=== PATIENT | male | born 1970 | race Caucasian/White ===

== ENCOUNTER 2017-02-22 02:59 | Emergency (ER) | payer BC ==
[~2017-02-22] VITALS: Ht 175.3 cm; Wt 74.4 kg
[2017-02-22] MEDS ORDERED: Thiamine HCl 100 MG in D5W 55 ML IVPB ONE (03:30)
[2017-02-22] MEDS ORDERED: Thiamine HCl 100mg/ml 2 ml Inj ONE (03:46)
--- NOTE | 2017-02-22 03:49 | Emergency Room Report ---
History of Present Illness General Chief Complaint: General Complaint Source: Patient Present Illness HPI This is a 46-year-old male who presents after increased discolored urine and regular stool. Patient reports having recently been in a alcohol detox facility. He states that he had recently left facility and began drinking alcohol again. Patient reported having prior history of liver infection but states that he did not have prior history of cirrhosis. The patient reported having last alcohol use yesterday in the morning. He denied any vomiting. He denied any current pain. He states he drinks regularly due to family problems. He reports previously having attended as well as been in rehabilitation multiple times Allergies: Coded Allergies: CEPHALEXIN (Verified Allergy, Unknown, 02/22/17) PENICILLINS (Verified Allergy, Unknown, 02/22/17) Patient History Past Medical History: see triage record Reviewed Nursing Documentation: PMH: Agreed, PSxH: Agreed Nursing Documentation-PMH History Of Psychiatric Problem: Yes - DEPRESSION Review of Systems All Other Systems: negative except mentioned in HPI Physical Exam Vital Signs Date Time Temp Pulse Resp B/P (MAP) Pulse Ox O2 Delivery O2 Flow Rate FiO2 02/22/17 03:04 97.3 91 18 126/82 97 Room Air Sp02 EP Interpretation: reviewed, normal General Appearance: normal inspection, well appearing, no apparent distress, alert, GCS 15, non-toxic Head: atraumatic ENT: normal ENT inspection, hearing grossly normal, normal voice Neck: normal inspection, full range of motion, supple, no bony tend Respiratory: normal inspection, lungs clear, normal breath sounds, no respiratory distress, no retraction, no wheezing Cardiovascular #1: regular rate, rhythm, no edema Gastrointestinal: normal inspection, normal bowel sounds, non tender, soft, no guarding, no hernia Genitourinary: no CVA tenderness Musculoskeletal: normal inspection, back normal, normal range of motion Neurologic: normal inspection, alert, oriented x3, responsive, 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 Differential diagnosis included was not limited to rhabdomyolysis, hyper bilirubinemia, malabsorption among others.Because of complexity of patient's case laboratory testing were ordered.I laboratory testing was notable for abnormal liver function tests as well as elevated bilirubin level. The patient was noted to be somewhat thrombocytopenic. Patient is advised to followup with outpatient alcohol abuse treatment. The patient is advised to follow up with primary care doctor in 1- 2 days. Patient is advised to return if any worsening condition or if any changes in status that are concerning. Labs Test 02/22/17 03:40 02/22/17 05:15 White Blood Count 7.2 K/UL (4.8-10.8) Red Blood Count 3.33 M/UL (4.70-6.10) Hemoglobin 13.1 G/DL (14.2-18.0) Hematocrit 37.0 % (42.0-52.0) Mean Corpuscular Volume 111 FL (80-99) Mean Corpuscular Hemoglobin 39.4 PG (27.0-31.0) Mean Corpuscular Hemoglobin Concent 35.5 G/DL (32.0-36.0) Red Cell Distribution Width 16.3 % (11.6-14.8) Platelet Count 113 K/UL (150-450) Mean Platelet Volume 9.1 FL (6.5-10.1) Neutrophils (%) (Auto) % (45.0-75.0) Lymphocytes (%) (Auto) % (20.0-45.0) Monocytes (%) (Auto) % (1.0-10.0) Eosinophils (%) (Auto) % (0.0-3.0) Basophils (%) (Auto) % (0.0-2.0) Sodium Level 141 mEQ/L (135-145) Potassium Level 3.9 mEQ/L (3.4-4.9) Chloride Level 102 mEQ/L (98-107) Carbon Dioxide Level 25 mEQ/L (20-30) Anion Gap 14 (5-15) Blood Urea Nitrogen 14 mg/dL (7-23) Creatinine 1.1 mg/dL (0.7-1.2) Estimat Glomerular Filtration Rate > 60 mL/min (>60) Glucose Level 107 mg/dL (74-106) Calcium Level 9.5 mg/dL (8.6-10.2) Total Bilirubin 1.6 mg/dL (0.0-1.2) Direct Bilirubin 0.3 mg/dL (0.1-0.3) Aspartate Amino Transf (AST/SGOT) 75 U/L (5-40) Alanine Aminotransferase (ALT/SGPT) 71 U/L (3-41) Alkaline Phosphatase 93 U/L (40-129) Total Creatine Kinase 143 U/L (38-174) Total Protein 7.1 g/dL (6.6-8.7) Albumin 4.5 g/dL (3.5-5.2) Globulin 2.6 g/dL Albumin/Globulin Ratio 1.7 (1.0-2.7) Lipase 50 U/L (< 60) Serum Alcohol 141 mg/dL Urine Color Yellow Urine Appearance Clear Urine pH 5 (4.5-8.0) Urine Specific [place] 1.010 (1.005-1.035) Urine Protein Negative (NEGATIVE) Urine Glucose (UA) Negative (NEGATIVE) Urine Ketones Negative (NEGATIVE) Urine Occult Blood Negative (NEGATIVE) Urine Nitrite Negative (NEGATIVE) Urine Bilirubin Negative (NEGATIVE) Urine Urobilinogen Normal MG/DL (0.0-1.0) Urine Leukocyte Esterase Negative (NEGATIVE) Urine RBC 0 /HPF (0 - 0) Urine WBC 0 /HPF (0 - 0) Urine Squamous Epithelial Cells Few /LPF (NONE/OCC) Urine Bacteria None /HPF (NONE) Last Vital Signs Date Time Temp Pulse Resp B/P (MAP) Pulse Ox O2 Delivery O2 Flow Rate FiO2 02/22/17 03:04 97.3 91 18 126/82 97 Room Air Status: improved Disposition: HOME, SELF-CARE Condition: Stable Scripts Omeprazole Magnesium (PRILOSEC OTC) 20 Mg Tablet. 20 MG ORAL DAILY, #30 TAB Prov: Gurmeet Krueger 02/22/17 Referrals: NOT CHOSEN NAKIA/,REFERRING (PCP) Gurmeet Krueger Feb 22, 2017 03:49
[2017-02-22 04:06] VITALS: BP 122/82
[2017-02-22 04:12] LABS: MEAN CORPUSCULAR HEMOGLOBIN 39.4 PG (27.0-31.0); MEAN CORPUSCULAR HGB CONC 35.5 G/DL (32.0-36.0); MEAN CORPUSCULAR VOLUME 111 FL (80-99); MEAN PLATELET VOLUME 9.1 FL (6.5-10.1); PLATELET COUNT 113 K/UL (150-450); RED BLOOD COUNT 3.33 M/UL (4.70-6.10); RED CELL DISTRIBUTION WIDTH 16.3 % (11.6-14.8); WHITE BLOOD COUNT 7.2 K/UL (4.8-10.8)
[2017-02-22 04:32] LABS: ALANINE AMINOTRANSFERASE 71 U/L (3-41); ALBUMIN/GLOBULIN RATIO 1.7 (1.0-2.7); ALCOHOL 143 mg/dL; ANION GAP 14 (5-15); ASPARTATE AMINO TRANSFERASE 75 U/L (5-40); CALCIUM 9.5 mg/dL (8.6-10.2); CARBON DIOXIDE 25 mEQ/L (20-30); CHLORIDE 102 mEQ/L (98-107); CREATININE 1.1 mg/dL (0.7-1.2); GLOMERULAR FILTRATION RATE > 60 mL/min (>60); HEMOLYSIS 5; POTASSIUM 3.9 mEQ/L (3.4-4.9); SODIUM 141 mEQ/L (135-145); TOTAL PROTEIN 7.1 g/dL (6.6-8.7)
[2017-02-22 04:48] LABS: BILIRUBIN,DIRECT 0.3 mg/dL (0.1-0.3)
[2017-02-22 05:28] VITALS: BP 132/82
[2017-02-22 05:30] LABS: APPEARANCE,URINE CLEAR; KETONES,URINE NEGATIVE (NEGATIVE); LEUKOCYTE ESTERASE ,URINE NEGATIVE (NEGATIVE); NITRITE,URINE NEGATIVE (NEGATIVE); PH,URINE 5 (4.5-8.0); PROTEIN,URINE NEGATIVE (NEGATIVE); UROBILINOGEN,URINE NORMAL MG/DL (0.0-1.0)
[2017-02-22 05:35] LABS: RBC,URINE 0 /HPF (0 - 0); SQUAMOUS EPITHELIAL CELL,UR FEW /LPF (NONE/OCC); WBC,URINE 0 /HPF (0 - 0)
[2017-02-22] MEDS ORDERED: PRILOSEC OTC20 MG ORAL (06:10)
[2017-02-22 06:21] VITALS: BP 13/78
== END 2017-02-22 06:20 | disposition home or self-care (01) ==
LOC: EMR 03:20
DX: F10.10 Alcohol abuse, uncomplicated (principal); D69.6 Thrombocytopenia, unspecified; Z88.8 Allergy status to other drugs, medicaments and biological substances; Z88.0 Allergy status to penicillin; F32.9 Major depressive disorder, single episode, unspecified
CPT/HCPCS: 36415; 80053; 80300; 81001; 82248; 82550; 83690; 85025; 96365; 99284; G0480; 80329

== ENCOUNTER 2018-08-20 19:49 | Emergency (ER) | payer BC ==
[~2018-08-20] VITALS: Ht 175.3 cm; Wt 77.1 kg
[~2018-08-20 19:49] MED LIST: PRILOSEC OTC20 MG ORAL
[2018-08-20 20:10] VITALS: BP 147/67
--- NOTE | 2018-08-20 20:10 | NUR ---
ED Nurse Note: Pt arrived ED from home. C/o ETOH. Pt is very agitated and asking for IV meds. PT is A/O X 4. Hr 130 /Min at this time. waitng for orders.
--- NOTE | 2018-08-20 20:25 | NUR ---
ED Nurse Note: Blood sample collected and sent to Lab.
[2018-08-20] MEDS ORDERED: Thiamine HCl 100 MG in D5W 55 ML IV ONE (20:30)
--- NOTE | 2018-08-20 20:59 | NUR ---
ED Nurse Note: Meds given as ordered.
[2018-08-20 21:11] LABS: BASOPHILS % (AUTO) 0.5 % (0.0-2.0); HEMATOCRIT 45.2 % (42.0-52.0); HEMOGLOBIN 16.1 G/DL (14.2-18.0); LYMPHOCYTES % (AUTO) 23.6 % (20.0-45.0); MEAN CORPUSCULAR VOLUME 95 FL (80-99); MONOCYTES % (AUTO) 5.8 % (1.0-10.0); NEUTROPHILS % (AUTO) 70.2 % (45.0-75.0); PLATELET COUNT 246 K/UL (150-450); RED BLOOD COUNT 4.76 M/UL (4.70-6.10); RED CELL DISTRIBUTION WIDTH 12.9 % (11.6-14.8); WHITE BLOOD COUNT 10.8 K/UL (4.8-10.8)
[2018-08-20 21:14] LABS: ANION GAP 24 mmol/L (5-15); BLOOD UREA NITROGEN 11 mg/dL (7-18); CALCIUM 9.5 MG/DL (8.5-10.1); CARBON DIOXIDE 18 MMOL/L (21-32); CHLORIDE 92 MMOL/L (98-107); CREATININE 1.1 MG/DL (0.55-1.30); POTASSIUM 3.6 MMOL/L (3.5-5.1); SODIUM 133 MMOL/L (136-145)
[2018-08-20 21:19] LABS: PHOSPHORUS 2.8 MG/DL (2.5-4.9)
[2018-08-20 21:20] LABS: ALANINE AMINOTRANSFERASE 40 U/L (12-78); ALBUMIN 4.4 G/DL (3.4-5.0); ALBUMIN/GLOBULIN RATIO 1.2 (1.0-2.7); ALKALINE PHOSPHATASE 85 U/L (46-116); ASPARTATE AMINO TRANSFERASE 49 U/L (15-37); BILIRUBIN,TOTAL 0.8 MG/DL (0.2-1.0)
--- NOTE | 2018-08-20 22:33 | Emergency Room Report ---
History of Present Illness General Chief Complaint: Alcohol Intoxication Source: Patient Present Illness HPI Patient presents with severe alcohol poisoning. He is supposed to go into rehabilitation next week. He's been drinking heavily through the day. The last time he was sober for 2 weeks was when he was 23. He is vomiting a scant amount of blood. He denies any melena. He's blacked out twice today. He denies any seizure activity. The patient's been seen here in the past with alcohol withdrawal and alcohol poisoning. No fevers, chills, chest pain, palpitations, diarrhea, dysuria, shortness of breath, visual changes, headache. The patient does have a sponsor. He denies suicidal or homicidal ideation. He feels anxious. Allergies: Coded Allergies: CEPHALEXIN (Verified Allergy, Unknown, 08/20/18) PENICILLINS (Verified Allergy, Unknown, 08/20/18) Patient History Past Medical History: see triage record Social History: Reports: smoking, alcohol use, drug use - THC Social History Narrative Reviewed Nursing Documentation: PMH: Agreed; PSxH: Agreed Nursing Documentation-PMH History Of Psychiatric Problem: Yes - STRESS AND ANXIETY Review of Systems All Other Systems: negative except mentioned in HPI Physical Exam Vital Signs Date Time Temp Pulse Resp B/P (MAP) Pulse Ox O2 Delivery O2 Flow Rate FiO2 08/20/18 19:55 122 142/96 98 Sp02 EP Interpretation: reviewed, normal General Appearance: GCS 15, mild distress, other - Vomiting Head: normocephalic Eyes: bilateral eye PERRL, bilateral eye EOMI, bilateral eye Scleral Injection ENT: moist mucus membranes Neck: supple Respiratory: lungs clear, normal breath sounds Cardiovascular #1: regular rate, rhythm Cardiovascular #2: 2+ radial (R) Gastrointestinal: normal inspection, normal bowel sounds, no mass, non- distended, no guarding, no rebound, tenderness - Epigastric Genitourinary: no CVA tenderness Musculoskeletal: back normal, gait/station normal, normal range of motion Neurologic: alert, oriented x3, grossly normal Psychiatric: no suicidal/homicidal ideation, anxious Skin: normal inspection, warm/dry Medical Decision Making Diagnostic Impression: Primary Impression: Gastritis Qualified Codes: K29.20 - Alcoholic gastritis without bleeding Additional Impression: Acute alcoholic intoxication Qualified Codes: F10.929 - Alcohol use, unspecified with intoxication, unspecified ER Course Patient presents with vomiting after ingestion of alcohol I differential includes acute alcohol intoxication, alcohol poisoning, gastritis, electrolyte imbalance amongst others. Evaluation will be with EKG, and labs. The patient will be treated with IV hydration, Zofran, Pepcid and thiamine. EKG was sinus tachycardia. Labs with normal white count and hemoglobin. Blood alcohol is positive. Tox screen positive for benzodiazepines and THC. Initial bicarbonate is low. Patient improved after initial treatment. Wants to go home. Patient vomiting here again. Reglan and benadryl given. Patient improved after repeat treatment. Discussed close outpatient observation and treatment plan. Both his and he understand. Patient stable for outpatient observation and treatment. Laboratory Tests Test 08/20/18 20:37 08/20/18 22:29 White Blood Count 10.8 K/UL (4.8-10.8) Red Blood Count 4.76 M/UL (4.70-6.10) Hemoglobin 16.1 G/DL (14.2-18.0) Hematocrit 45.2 % (42.0-52.0) Mean Corpuscular Volume 95 FL (80-99) Mean Corpuscular Hemoglobin 33.8 PG (27.0-31.0) H Mean Corpuscular Hemoglobin Concent 35.6 G/DL (32.0-36.0) Red Cell Distribution Width 12.9 % (11.6-14.8) Platelet Count 246 K/UL (150-450) Mean Platelet Volume 6.2 FL (6.5-10.1) L Neutrophils (%) (Auto) 70.2 % (45.0-75.0) Lymphocytes (%) (Auto) 23.6 % (20.0-45.0) Monocytes (%) (Auto) 5.8 % (1.0-10.0) Eosinophils (%) (Auto) 0.0 % (0.0-3.0) Basophils (%) (Auto) 0.5 % (0.0-2.0) Sodium Level 133 MMOL/L (136-145) L Potassium Level 3.6 MMOL/L (3.5-5.1) Chloride Level 92 MMOL/L (98-107) L Carbon Dioxide Level 18 MMOL/L (21-32) L Anion Gap 24 mmol/L (5-15) H Blood Urea Nitrogen 11 mg/dL (7-18) Creatinine 1.1 MG/DL (0.55-1.30) Estimate Glomerular Filtration Rate > 60 mL/min (>60) Glucose Level 112 MG/DL (74-106) H Calcium Level 9.5 MG/DL (8.5-10.1) Phosphorus Level 2.8 MG/DL (2.5-4.9) Magnesium Level 1.8 MG/DL (1.8-2.4) Total Bilirubin 0.8 MG/DL (0.2-1.0) Aspartate Amino Transferase (AST) 49 U/L (15-37) H Alanine Aminotransferase (ALT) 40 U/L (12-78) Alkaline Phosphatase 85 U/L (46-116) Total Protein 8.1 G/DL (6.4-8.2) Albumin 4.4 G/DL (3.4-5.0) Globulin 3.7 g/dL Albumin/Globulin Ratio 1.2 (1.0-2.7) Salicylates Level 1.6 ug/mL (2.8-20) L Acetaminophen Level < 2 MCG/ML (10-30) L Serum Alcohol 232 mg/dL Urine Color Pale yellow Urine Appearance Clear Urine pH 5 (4.5-8.0) Urine Specific [place] 1.025 (1.005-1.035) Urine Protein 2+ (NEGATIVE) H Urine Glucose (UA) Negative (NEGATIVE) Urine Ketones 3+ (NEGATIVE) H Urine Blood 1+ (NEGATIVE) H Urine Nitrite Negative (NEGATIVE) Urine Bilirubin Negative (NEGATIVE) Urine Urobilinogen Normal MG/DL (0.0-1.0) Urine Leukocyte Esterase Negative (NEGATIVE) Urine RBC 0-2 /HPF (0 - 0) H Urine WBC 0-2 /HPF (0 - 0) Urine Squamous Epithelial Cells Occasional /LPF Urine Amorphous Sediment Moderate /LPF (NONE) H Urine Bacteria Few /HPF (NONE) Urine Opiates Screen Negative (NEGATIVE) Urine Barbiturates Screen Negative (NEGATIVE) Phencyclidine (PCP) Screen Negative (NEGATIVE) Urine Amphetamines Screen Negative (NEGATIVE) Urine Benzodiazepines Screen Positive (NEGATIVE) H Urine Cocaine Screen Negative (NEGATIVE) Urine Marijuana (THC) Screen Positive (NEGATIVE) H EKG Diagnostic Results Rate: tachycardiac Rhythm: NSR ST Segments: no acute changes - Right axis Rhythm Strip Diag. Results EP Interpretation: yes Rhythm: no PVC's, no ectopy, other - Sinus tachycardia Last Vital Signs Date Time Temp Pulse Resp B/P (MAP) Pulse Ox O2 Delivery O2 Flow Rate FiO2 08/21/18 00:07 98.1 99 23 131/69 98 Room Air Status: improved Disposition: HOME, SELF-CARE Condition: Improved Scripts Mag Hydrox/Al Hydrox/Simeth (MAALOX MAXIMUM STRENGTH SUSP) 355 Ml Oral.susp 30 ML PO Q6HR, #240 ML Prov: Eldon Callahan MD 08/20/18 Ondansetron Odt* (ZOFRAN ODT*) 4 Mg Tab.rapdis 4 MG BC EVERY 8 HOURS, #10 TAB 0 Refills Prov: Eldon Callahan MD 08/20/18 Chlordiazepoxide Hcl* (LIBRIUM*) 10 Mg Capsule 10 MG ORAL THREE TIMES A DAY, #4 CAP 0 Refills Prov: Eldon Callahan MD 08/20/18 Eldon Callahan MD Aug 20, 2018 22:33
[2018-08-20 22:36] LABS: APPEARANCE,URINE CLEAR; BILIRUBIN, URINE NEGATIVE (NEGATIVE); COLOR,URINE PALE YELLOW; GLUCOSE, URINE (UA) NEGATIVE (NEGATIVE); KETONES,URINE 3+ (NEGATIVE); LEUKOCYTE ESTERASE ,URINE NEGATIVE (NEGATIVE); NITRITE,URINE NEGATIVE (NEGATIVE); PH,URINE 5 (4.5-8.0); PROTEIN,URINE 2+ (NEGATIVE); UROBILINOGEN,URINE NORMAL MG/DL (0.0-1.0)
[2018-08-20] MEDS ORDERED: Metoclopramide 10mg/2ml Inj IVP ONE (22:45)
[2018-08-20] MEDS ORDERED: DiphenhydrAMINE 50mg/ml Inj IVP ONE (22:45)
[2018-08-20] MEDS ORDERED: LIBRIUM10 MG ORAL (23:20)
[2018-08-20] MEDS ORDERED: ONDANSETRON ODT4 MG BC (23:20)
[2018-08-20] MEDS ORDERED: MAALOX MAXIMUM355 M1 PO (23:20)
[2018-08-20] MEDS ORDERED: Metoclopramide 10mg/2ml Inj ONE (23:33)
[2018-08-21 00:07] VITALS: BP 131/69
--- NOTE | 2018-08-21 00:07 | NUR ---
ER DISCHARGE NOTE: Patient is cleared to be discharged per Dr. Callahan . Pt is A/O x4 on room air with stable vital signs. pt was given dc instructions and was able to verbalize understanding. Pt's ID band and IV cannular removed without complications. Pt is able to ambulate with steady gait and took all belongings.
== END 2018-08-20 23:50 | disposition home or self-care (01) ==
LOC: EMR 23:45
DX: K29.20 Alcoholic gastritis without bleeding (principal); F10.129 Alcohol abuse with intoxication, unspecified; F12.90 Cannabis use, unspecified, uncomplicated; F41.9 Anxiety disorder, unspecified
CPT/HCPCS: 36415; 80053; 80307; 81003; 83735; 84100; 85025; 93005; 96361; 96365; 96375; 99284; G0480; J1200; J2405; J2765; S0028; 80329

== ENCOUNTER 2018-11-19 23:31 | Emergency (ER) | payer BC ==
[~2018-11-19] VITALS: Ht 170.2 cm; Wt 79.4 kg
[~2018-11-19 23:31] MED LIST changes: +LIBRIUM10 MG ORAL; +MAALOX MAXIMUM355 M1 PO; +ONDANSETRON ODT4 MG BC
--- NOTE | 2018-11-19 23:40 | NUR ---
ED Nurse Note: PT CAME FROM HOME ANI NEELY 700 D/T ABD PAIN WITH VOMITING. PER PT "I DRANK A SHIT TON". ao4. nad.
--- NOTE | 2018-11-19 23:40 | Emergency Room Report ---
History of Present Illness General Chief Complaint: Abdominal Pain Source: Patient Present Illness HPI This is a 48-year-old male with history of abuse. He presents with chief complaint abdominal pain with vomiting. Call 911 because he has "alcohol poisoning." Today's been drinking all day. Complaining of diffuse abdominal pain but has nausea vomiting. Has specks of blood in it. No diarrhea. Similar symptom in the past. [place] very. Nothing made it better. Any eating or drinking made it worse. Denies any trauma. Allergies: Coded Allergies: CEPHALEXIN (Verified Allergy, Unknown, 08/20/18) PENICILLINS (Verified Allergy, Unknown, 08/20/18) Patient History Past Medical History: see triage record, old chart reviewed Past Surgical History: other Pertinent Family History: none Social History: Reports: alcohol use Immunizations: other Reviewed Nursing Documentation: PMH: Agreed; PSxH: Agreed Nursing Documentation-PMH Past Medical History: No History, Except For Hx Hypertension: Yes Hx Asthma: Yes Review of Systems Eye: Denies: eye pain, blurred vision ENT: Denies: ear pain, nose congestion, throat swelling Respiratory: Denies: cough, shortness of breath Cardiovascular: Denies: chest pain, palpitations Gastrointestinal: Reports: abdominal pain, nausea, vomiting; Denies: diarrhea Musculoskeletal: Denies: back pain, joint pain Skin: Denies: rash Neurological: Denies: headache, numbness Endocrine: Denies: increased thirst, increased urine Hematologic/Lymphatic: Denies: easy bruising All Other Systems: negative except mentioned in HPI Physical Exam Vital Signs Date Time Temp Pulse Resp B/P (MAP) Pulse Ox O2 Delivery O2 Flow Rate FiO2 11/19/18 23:31 98.8 124 18 162/104 (123) 99 Room Air vitals with high blood pressure and tachycardia Sp02 EP Interpretation: reviewed, normal General Appearance: well appearing, no apparent distress, alert Head: normocephalic, atraumatic Eyes: bilateral eye PERRL, bilateral eye EOMI ENT: hearing grossly normal, normal pharynx Neck: full range of motion, supple, no meningismus Respiratory: chest non-tender, lungs clear, normal breath sounds Cardiovascular #1: regular rate, rhythm, no murmur, tachycardia Gastrointestinal: normal bowel sounds, no mass, no organomegaly, no bruit, non- distended, tenderness - Diffuse tenderness Musculoskeletal: back normal, gait/station normal, normal range of motion Neurologic: alert, oriented x3 Psychiatric: anxious Skin: warm/dry Medical Decision Making Diagnostic Impression: Primary Impression: Acute alcoholic intoxication Qualified Codes: F10.920 - Alcohol use, unspecified with intoxication, uncomplicated Additional Impressions: Alcoholic ketoacidosis Alcohol withdrawal Qualified Codes: F10.230 - Alcohol dependence with withdrawal, uncomplicated ER Course This patient presents with alcohol abuse and based on the lab, has alcoholic ketoacidosis. Even though his alcohol level is high, based on his drinking history is most likely withdrawal since he was very tremulous and shaky. Improved greatly with Ativan. Also give him Librium. His acidosis is slowly improving. I advised patient to be admitted to the hospital for further workup and IV fluid. Patient refused. He said he wanted to go home. Initially I convince him to stay at least into the morning for morphine IV fluids and repeat lab testing. After the third IV bag, he wanted to go home. His is at bedside. Explained the risks of leaving AMA. Patient is competent to make that decision. Patient is not suicidal or homicidal. Told patient to follow-up with his doctor in one to 2 days. Return if symptom worsen. Patient has already been in rehabilitation an AA meeting. Last Vital Signs Date Time Temp Pulse Resp B/P (MAP) Pulse Ox O2 Delivery O2 Flow Rate FiO2 11/19/18 23:31 98.8 124 18 162/104 (123) 99 Room Air Status: improved Disposition: AGAINST MEDICAL ADVICE Condition: Stable Rivera Sullivan MD Nov 19, 2018 23:40
--- NOTE | 2018-11-19 23:45 | NUR ---
ED Nurse Note: iv access established. blood collected; sent down to lab
[2018-11-20 00:06] LABS: ANION GAP 32 mmol/L (5-15); BLOOD UREA NITROGEN 18 mg/dL (7-18); CHLORIDE 94 MMOL/L (98-107); CREATININE 1.3 MG/DL (0.55-1.30); POTASSIUM 4.7 MMOL/L (3.5-5.1); SODIUM 133 MMOL/L (136-145)
[2018-11-20 00:12] LABS: ALANINE AMINOTRANSFERASE 48 U/L (12-78); ALBUMIN 5.2 G/DL (3.4-5.0); ALBUMIN/GLOBULIN RATIO 1.4 (1.0-2.7); ALKALINE PHOSPHATASE 71 U/L (46-116); ASPARTATE AMINO TRANSFERASE 55 U/L (15-37); BILIRUBIN,TOTAL 0.5 MG/DL (0.2-1.0)
[2018-11-20 00:14] VITALS: BP 162/104
[2018-11-20 00:23] LABS: CARBON DIOXIDE 6 MMOL/L (21-32)
[2018-11-20 00:29] LABS: BASOPHILS % (AUTO) 0.3 % (0.0-2.0); EOSINOPHILS % (AUTO) 0.1 % (0.0-3.0); HEMATOCRIT 46.4 % (42.0-52.0); LYMPHOCYTES % (AUTO) 12.1 % (20.0-45.0); MEAN CORPUSCULAR VOLUME 97 FL (80-99); MONOCYTES % (AUTO) 6.2 % (1.0-10.0); NEUTROPHILS % (AUTO) 81.3 % (45.0-75.0); PLATELET COUNT 209 K/UL (150-450); RED BLOOD COUNT 4.79 M/UL (4.70-6.10); RED CELL DISTRIBUTION WIDTH 11.5 % (11.6-14.8); WHITE BLOOD COUNT 15.9 K/UL (4.8-10.8)
[2018-11-20 00:30] LABS: APPEARANCE,URINE CLEAR; BILIRUBIN, URINE NEGATIVE (NEGATIVE); COLOR,URINE PALE YELLOW; GLUCOSE, URINE (UA) NEGATIVE (NEGATIVE); KETONES,URINE 3+ (NEGATIVE); LEUKOCYTE ESTERASE ,URINE NEGATIVE (NEGATIVE); NITRITE,URINE NEGATIVE (NEGATIVE); PH,URINE 5 (4.5-8.0); PROTEIN,URINE 2+ (NEGATIVE); UROBILINOGEN,URINE NORMAL MG/DL (0.0-1.0)
[2018-11-20] MEDS ORDERED: LORazepam Inj 2mg/ml 1ml IV ONE ×2 (00:30→02:30)
[2018-11-20] MEDS ORDERED: chlordiazePOXIDE 25mg Cap ORAL ONE (00:30)
--- NOTE | 2018-11-20 00:30 | NUR ---
ED Nurse Note: family member at bedside. patient restless but cooperative.
--- NOTE | 2018-11-20 01:53 | NUR ---
ED Nurse Note: repeat bmp drawn; sent down to lab.
[2018-11-20 02:43] LABS: ANION GAP 25 mmol/L (5-15); BLOOD UREA NITROGEN 15 mg/dL (7-18); CALCIUM 8.6 MG/DL (8.5-10.1); CARBON DIOXIDE 12 MMOL/L (21-32); CHLORIDE 100 MMOL/L (98-107); CREATININE 1.1 MG/DL (0.55-1.30); POTASSIUM 4.4 MMOL/L (3.5-5.1); SODIUM 137 MMOL/L (136-145)
[2018-11-20] MEDS ORDERED: D5NS 1,000 ML IV ONE ×2 (03:15→04:00)
[2018-11-20 03:30] VITALS: BP 133/76
[2018-11-20 04:30] VITALS: BP 132/45
--- NOTE | 2018-11-20 04:30 | NUR ---
AMA: SEE AMA FORM. PT AMBULATED STEADY ACCOMPANIED BY SPOUSE. STATES "I FEEL BETTER. I DONT WANT TO STAY. I WILL CALL MY SPONSOR AND CHECK IN TO A REHAB."
== END 2018-11-20 04:30 | disposition left against medical advice (07) ==
LOC: EDBD 23:31 → EMR 23:43
DX: F10.239 Alcohol dependence with withdrawal, unspecified (principal); F10.229 Alcohol dependence with intoxication, unspecified; E87.2 Acidosis; I10 Essential (primary) hypertension; E11.9 Type 2 diabetes mellitus without complications; Z88.0 Allergy status to penicillin; Z88.1 Allergy status to other antibiotic agents
CPT/HCPCS: 36415; 80048; 80053; 81003; 83690; 85025; 96361; 96365; 96375; 96376; 99284; G0480; J2405; S0028; 80329

== ENCOUNTER 2018-12-09 17:07 | Inpatient (IN) | payer BC ==
[~2018-12-09] VITALS: Ht 175.3 cm; Wt 81.6 kg
[2018-12-09] MEDS ORDERED: DiphenhydrAMINE 50mg/ml Inj IVP ONE (17:30)
[2018-12-09] MEDS ORDERED: LORazepam Inj 2mg/ml 1ml IV ONE ×2 (17:30→18:30)
--- NOTE | 2018-12-09 17:32 | Emergency Room Report ---
History of Present Illness General Chief Complaint: Alcohol poisoning Source: Patient Present Illness HPI Patient presents in acute distress agitated Reported that he had ' alcohol poisoning' Patient is here with partner who reports that patient was seen at [facility] on Wednesday was there overnight Soon after again started drinking and now presents with increased Epigastric discomfort, nausea and vomiting denies any chest pain denies any diarrhea denies any lower abdominal pain Allergies: Coded Allergies: CEPHALEXIN (Verified Allergy, Unknown, 08/20/18) PENICILLINS (Verified Allergy, Unknown, 08/20/18) Patient History Past Medical History: see triage record Pertinent Family History: none Reviewed Nursing Documentation: PMH: Agreed; PSxH: Agreed Nursing Documentation-PMH Hx Hypertension: Yes Hx Asthma: Yes Review of Systems All Other Systems: negative except mentioned in HPI Physical Exam Sp02 EP Interpretation: reviewed, normal General Appearance: moderate distress - Agitated also extremely aggressive Head: normocephalic, atraumatic Eyes: bilateral eye PERRL, bilateral eye EOMI ENT: dry mucus membranes Neck: full range of motion, supple Respiratory: lungs clear, no retraction, no accessory muscle use Cardiovascular #1: regular rate, rhythm Gastrointestinal: non tender, soft Genitourinary: no CVA tenderness Musculoskeletal: normal inspection Neurologic: alert Skin: no rash Lymphatic: no adenopathy Medical Decision Making Diagnostic Impression: Primary Impression: Acidosis Additional Impression: Dehydration ER Course Patient presents in acute distress has had previous presentations with alcohol poisoning Has been found to be fairly acidotic in the past patient received repeat medications here Blood work also again reveals dehydration and acidosis Patient requiring further inpatient care Labs Test 12/09/18 17:40 White Blood Count 6.9 K/UL (4.8-10.8) Red Blood Count 4.89 M/UL (4.70-6.10) Hemoglobin 16.1 G/DL (14.2-18.0) Hematocrit 46.6 % (42.0-52.0) Mean Corpuscular Volume 95 FL (80-99) Mean Corpuscular Hemoglobin 32.9 PG (27.0-31.0) Mean Corpuscular Hemoglobin Concent 34.5 G/DL (32.0-36.0) Red Cell Distribution Width 11.5 % (11.6-14.8) Platelet Count 201 K/UL (150-450) Mean Platelet Volume 6.9 FL (6.5-10.1) Neutrophils (%) (Auto) 42.4 % (45.0-75.0) Lymphocytes (%) (Auto) 45.3 % (20.0-45.0) Monocytes (%) (Auto) 10.0 % (1.0-10.0) Eosinophils (%) (Auto) 1.1 % (0.0-3.0) Basophils (%) (Auto) 1.2 % (0.0-2.0) Sodium Level 138 MMOL/L (136-145) Potassium Level 3.5 MMOL/L (3.5-5.1) Chloride Level 102 MMOL/L (98-107) Carbon Dioxide Level 17 MMOL/L (21-32) Anion Gap 19 mmol/L (5-15) Blood Urea Nitrogen 12 mg/dL (7-18) Creatinine 0.9 MG/DL (0.55-1.30) Estimat Glomerular Filtration Rate > 60 mL/min (>60) Glucose Level 90 MG/DL (74-106) Calcium Level 10.1 MG/DL (8.5-10.1) Total Bilirubin 0.9 MG/DL (0.2-1.0) Aspartate Amino Transf (AST/SGOT) 80 U/L (15-37) Alanine Aminotransferase (ALT/SGPT) 92 U/L (12-78) Alkaline Phosphatase 76 U/L (46-116) Total Protein 8.0 G/DL (6.4-8.2) Albumin 4.5 G/DL (3.4-5.0) Globulin 3.5 g/dL Albumin/Globulin Ratio 1.3 (1.0-2.7) Rhythm Strip Diag. Results EP Interpretation: yes Rate: 80 Rhythm: NSR, no PVC's, no ectopy Status: improved Disposition: ADMITTED INPATIENT Condition: Serious Eunice Mann DO Dec 09, 2018 17:32
[2018-12-09 17:56] VITALS: BP 128/83
--- NOTE | 2018-12-09 17:57 | NUR ---
ED Nurse Note:pt. came with ETOH withdrawals, abdominal pain, nausea, blood was sent to labs, placed on cardiac care nurse, given IV fluid snad meds
[2018-12-09 18:00] LABS: BASOPHILS % (AUTO) 1.2 % (0.0-2.0); EOSINOPHILS % (AUTO) 1.1 % (0.0-3.0); HEMATOCRIT 46.6 % (42.0-52.0); HEMOGLOBIN 16.1 G/DL (14.2-18.0); LYMPHOCYTES % (AUTO) 45.3 % (20.0-45.0); MEAN CORPUSCULAR VOLUME 95 FL (80-99); NEUTROPHILS % (AUTO) 42.4 % (45.0-75.0); PLATELET COUNT 201 K/UL (150-450); RED BLOOD COUNT 4.89 M/UL (4.70-6.10); RED CELL DISTRIBUTION WIDTH 11.5 % (11.6-14.8); WHITE BLOOD COUNT 6.9 K/UL (4.8-10.8)
[2018-12-09 18:04] LABS: ANION GAP 19 mmol/L (5-15); BLOOD UREA NITROGEN 12 mg/dL (7-18); CALCIUM 10.1 MG/DL (8.5-10.1); CARBON DIOXIDE 17 MMOL/L (21-32); CHLORIDE 102 MMOL/L (98-107); CREATININE 0.9 MG/DL (0.55-1.30); POTASSIUM 3.5 MMOL/L (3.5-5.1); SODIUM 138 MMOL/L (136-145)
[2018-12-09 18:09] LABS: ALANINE AMINOTRANSFERASE 92 U/L (12-78); ALBUMIN 4.5 G/DL (3.4-5.0); ALBUMIN/GLOBULIN RATIO 1.3 (1.0-2.7); ALKALINE PHOSPHATASE 76 U/L (46-116); ASPARTATE AMINO TRANSFERASE 80 U/L (15-37); BILIRUBIN,TOTAL 0.9 MG/DL (0.2-1.0)
[2018-12-09] MEDS ORDERED: Metoclopramide 10mg/2ml Inj IVP ONE (18:30)
[2018-12-09] MEDS ORDERED: TRAZODONE HCL150 MG ORAL (18:38)
[2018-12-09] MEDS ORDERED: GABAPENTIN600 MG ORAL (18:38)
[2018-12-09] MEDS ORDERED: NALTREXONE HCL50 MG PO (18:38)
[2018-12-09] MEDS ORDERED: AMITRIPTYLINE100 MG ORAL (18:38)
[2018-12-09] MEDS ORDERED: VITAMIN B-1100 MG ORAL (18:38)
[2018-12-09] MEDS ORDERED: CALCIUM500 M3 PO (18:38)
[2018-12-09 18:50] VITALS: BP 112/80
--- NOTE | 2018-12-09 18:51 | NUR ---
ED Nurse Note:pt. sleeping no signs of distress , family at bedside
--- NOTE | 2018-12-09 19:06 | NUR ---
ED Nurse Note: PATIENT SLEEPING, VITAL SIGNS ARE STABLE.
--- NOTE | 2018-12-09 20:06 | NUR ---
ED Nurse Note: PATIENT IS SLEEPING, IS AT BEDSIDE.
--- NOTE | 2018-12-09 21:27 | NUR ---
ED Nurse Note: CALLED AND GAVE REPORT TO RAJWINDER, PATIENT AWATING TRANSPORT TO FLOOR WITH AT BEDSIDE.
--- NOTE | 2018-12-09 22:05 | NUR ---
NURSE NOTES: Pt received, alert and oriented X 4, states he is a little wobbly when he walks, on oxygen 2L, vitals 130/70, 97.8, 101 Hr, 99%. Pt with him at bedside, able to make needs known, call light within reach, will contact MD for orders.
[2018-12-10] VITALS: BP 133/88
--- NOTE | 2018-12-10 01:28 | NUR ---
Per Nurse MD Viet Styles has not responded to page x3, 30 mins interval. I called and left voicemail on Dr Bal cell @[phone] and [phone]. Attempted to call house number as well @[phone], no flower picker and no option to leave voicemail. Dr jenkins was called @[phone] and was able to flower picker and agreed to speak with nurse. Transfer successful. Followed up with nurse and nurse verbalized she received orders.
[2018-12-10] MEDS ORDERED: CYMBALTA30 MG ORAL (01:44)
[2018-12-10] MEDS ORDERED: VITAMIN D400 INTLU ORAL (01:44)
[2018-12-10] MEDS ORDERED: chlordiazePOXIDE 25mg Cap ORAL PRN (01:45)
[2018-12-10] MEDS ORDERED: TraZODone 50mg tab ORAL SCH (02:15)
[2018-12-10 06:18] LABS: BASOPHILS % (AUTO) 0.9 % (0.0-2.0); EOSINOPHILS % (AUTO) 1.2 % (0.0-3.0); HEMATOCRIT 39.9 % (42.0-52.0); HEMOGLOBIN 13.6 G/DL (14.2-18.0); LYMPHOCYTES % (AUTO) 31.2 % (20.0-45.0); MEAN CORPUSCULAR VOLUME 99 FL (80-99); MONOCYTES % (AUTO) 8.2 % (1.0-10.0); NEUTROPHILS % (AUTO) 58.5 % (45.0-75.0); PLATELET COUNT 172 K/UL (150-450); RED BLOOD COUNT 4.04 M/UL (4.70-6.10); RED CELL DISTRIBUTION WIDTH 12.2 % (11.6-14.8); WHITE BLOOD COUNT 6.8 K/UL (4.8-10.8)
[2018-12-10 06:29] LABS: ANION GAP 13 mmol/L (5-15); BLOOD UREA NITROGEN 15 mg/dL (7-18); CARBON DIOXIDE 23 MMOL/L (21-32); CHLORIDE 101 MMOL/L (98-107); POTASSIUM 3.8 MMOL/L (3.5-5.1); SODIUM 137 MMOL/L (136-145)
--- NOTE | 2018-12-10 07:11 | NUR ---
HAND-OFF: Report given to DAVID Santana.
--- NOTE | 2018-12-10 07:36 | NUR ---
NURSE NOTES: received report from DAVID Styles. patient new admission from ER last night. in bed. a&ox 4, verbally responsive. no respiratory distress noted on o2 2l/min via NC. c/o pain on abd area. IV on RH intact. will provide home medication(Naltrexine). bed in the lowest position. call light within reach, alarm on. will provide plan of care.
--- NOTE | 2018-12-10 07:46 | Consultation ---
History of Present Illness General Chief Complaint: Alcohol Intoxication Present Illness Allergies: Coded Allergies: CEPHALEXIN (Verified Allergy, Unknown, 08/20/18) PENICILLINS (Verified Allergy, Unknown, 08/20/18) Medication History Scheduled Amitriptyline HCl (Amitriptyline HCl), 50 MG ORAL BEDTIME, (Reported) Calcium Carbonate (Calcium), 10,000 MG PO DAILY, (Reported) Chlordiazepoxide Hcl* (Librium*), 10 MG ORAL THREE TIMES A DAY Duloxetine Hcl* (Cymbalta*), 90 MG ORAL DAILY, (Reported) Gabapentin* (Gabapentin*), 1,200 MG ORAL BID, (Reported) Mag Hydrox/Al Hydrox/Simeth (Maalox Maximum Strength Susp), 30 ML PO Q6HR Naltrexone Hcl (Naltrexone Hcl), 50 MG PO DAILY, (Reported) Omeprazole Magnesium (Prilosec Otc), 20 MG ORAL DAILY Ondansetron Odt* (Zofran Odt*), 4 MG BC EVERY 8 HOURS Thiamine Hcl* (Vitamin B-1*), 100 MG ORAL DAILY, (Reported) Trazodone* (Trazodone*), 225 MG ORAL BEDTIME, (Reported) Vitamin D (Vitamin D3), 5,000 UNITS ORAL DAILY, (Reported) Patient History Healthcare decision maker Resuscitation status Full Code Advanced Directive on File Physical Exam Last 24 Hour Vital Signs Date Time Temp Pulse Resp B/P (MAP) Pulse Ox O2 Delivery O2 Flow Rate FiO2 12/10/18 00:00 97.9 98 19 133/88 (103) 100 12/09/18 22:15 Nasal Cannula 2.0 12/09/18 21:25 97.0 97 20 112/80 99 Room Air 12/09/18 18:50 97 20 112/80 99 Room Air 12/09/18 17:56 97.0 98 20 128/83 99 Room Air 12/09/18 17:53 98 20 Room Air 12/09/18 17:16 97.0 116 22 139/87 (104) 99 Room Air Intake and Output 12/09/18 12/10/18 19:00 07:00 Intake Total 500 ml Balance 500 ml Intake Oral 500 ml # Voids 1 Laboratory Tests Test 12/09/18 17:40 12/10/18 04:48 White Blood Count 6.9 K/UL (4.8-10.8) 6.8 K/UL (4.8-10.8) Red Blood Count 4.89 M/UL (4.70-6.10) 4.04 M/UL (4.70-6.10) L Hemoglobin 16.1 G/DL (14.2-18.0) 13.6 G/DL (14.2-18.0) L Hematocrit 46.6 % (42.0-52.0) 39.9 % (42.0-52.0) L Mean Corpuscular Volume 95 FL (80-99) 99 FL (80-99) Mean Corpuscular Hemoglobin 32.9 PG (27.0-31.0) H 33.5 PG (27.0-31.0) H Mean Corpuscular Hemoglobin Concent 34.5 G/DL (32.0-36.0) 34.0 G/DL (32.0-36.0) Red Cell Distribution Width 11.5 % (11.6-14.8) L 12.2 % (11.6-14.8) Platelet Count 201 K/UL (150-450) 172 K/UL (150-450) Mean Platelet Volume 6.9 FL (6.5-10.1) 6.8 FL (6.5-10.1) Neutrophils (%) (Auto) 42.4 % (45.0-75.0) L 58.5 % (45.0-75.0) Lymphocytes (%) (Auto) 45.3 % (20.0-45.0) H 31.2 % (20.0-45.0) Monocytes (%) (Auto) 10.0 % (1.0-10.0) 8.2 % (1.0-10.0) Eosinophils (%) (Auto) 1.1 % (0.0-3.0) 1.2 % (0.0-3.0) Basophils (%) (Auto) 1.2 % (0.0-2.0) 0.9 % (0.0-2.0) Sodium Level 138 MMOL/L (136-145) 137 MMOL/L (136-145) Potassium Level 3.5 MMOL/L (3.5-5.1) 3.8 MMOL/L (3.5-5.1) Chloride Level 102 MMOL/L (98-107) 101 MMOL/L (98-107) Carbon Dioxide Level 17 MMOL/L (21-32) L 23 MMOL/L (21-32) Anion Gap 19 mmol/L (5-15) H 13 mmol/L (5-15) Blood Urea Nitrogen 12 mg/dL (7-18) 15 mg/dL (7-18) Creatinine 0.9 MG/DL (0.55-1.30) 1.0 MG/DL (0.55-1.30) Estimat Glomerular Filtration Rate > 60 mL/min (>60) > 60 mL/min (>60) Glucose Level 90 MG/DL (74-106) 68 MG/DL (74-106) L Calcium Level 10.1 MG/DL (8.5-10.1) 9.0 MG/DL (8.5-10.1) Total Bilirubin 0.9 MG/DL (0.2-1.0) Aspartate Amino Transf (AST/SGOT) 80 U/L (15-37) H Alanine Aminotransferase (ALT/SGPT) 92 U/L (12-78) H Alkaline Phosphatase 76 U/L (46-116) Total Protein 8.0 G/DL (6.4-8.2) Albumin 4.5 G/DL (3.4-5.0) Globulin 3.5 g/dL Albumin/Globulin Ratio 1.3 (1.0-2.7) Height (Feet): 5 Height (Inches): 9.00 Weight (Pounds): 180 Medications Current Medications Medications (Trade) Dose Ordered Sig/Milton Route PRN Reason Start Time Stop Time Status Last Admin Dose Admin Acetaminophen (Tylenol) 650 mg Q6H PRN ORAL Mild Pain/T>100.5 12/10/18 01:45 01/09/19 01:44 Amitriptyline HCl (Elavil) 50 mg BEDTIME ORAL 12/10/18 21:00 01/09/19 20:59 Chlordiazepoxide (Librium) 25 mg Q8H PRN ORAL Agitation 12/10/18 01:45 12/17/18 01:44 Duloxetine HCl (Cymbalta) 90 mg DAILY ORAL 12/10/18 09:00 01/09/19 08:59 Folic Acid 1 mg/ Magnesium Sulfate 2000 mg/ Multivitamins 10 ml/Sodium Chloride 1,014.2 ml @ 75 mls/hr Q24H IV 12/10/18 09:00 01/09/19 08:59 Gabapentin (Neurontin) 1,200 mg BID ORAL 12/10/18 09:00 01/09/19 08:59 Lorazepam (Ativan 2mg/ml 1ml) 1 mg Q6H PRN IV For Anxiety 12/10/18 01:45 12/17/18 01:44 Non-Formulary Medication (Non-Formulary Med) 1 ea DAILY ORAL 12/10/18 09:00 01/09/19 08:59 UNV Thiamine HCl 100 mg/Dextrose 56 ml @ 112 mls/hr Q24H IVPB 12/10/18 09:00 01/09/19 08:59 Trazodone HCl (Desyrel) 225 mg BEDTIME ORAL 12/10/18 02:15 01/09/19 20:59 12/10/18 02:51 Vitamin D (Vitamin D) 5,000 intlu DAILY ORAL 12/10/18 09:00 01/09/19 08:59 Assessment/Plan Problem List: (1) Acute alcoholic intoxication ICD Codes: F10.929 - Alcohol use, unspecified with intoxication, unspecified SNOMED: 15104784 (2) Gastritis ICD Codes: K29.70 - Gastritis, unspecified, without bleeding SNOMED: [id number] Guille Yates MD Dec 10, 2018 07:46
[2018-12-10 08:00] VITALS: BP 128/83
[2018-12-10] MEDS: LORazepam Inj 2mg/ml 1ml IV PRN ×2 (08:57→15:33)
[2018-12-10] MEDS ORDERED: Folic Acid 1 MG, Magnesium Sulfate 2,000 MG, Multivitamin - 12 Injection 10 ML in Sodiu... IV SCH (09:00)
[2018-12-10] MEDS ORDERED: Tums 500mg ORAL SCH (09:00)
[2018-12-10] MEDS ORDERED: Vitamin D 1000 IU Tab ORAL SCH (09:00)
[2018-12-10] MEDS ORDERED: Thiamine 100mg tab ORAL SCH (09:00)
[2018-12-10] MEDS ORDERED: Thiamine 100mg in D5W 55ml IVPB SCH (09:00)
[2018-12-10] MEDS ORDERED: DULoxetine 30mg cap ORAL SCH (09:00)
--- NOTE | 2018-12-10 10:45 | History and Physical Report ---
DATE OF ADMISSION: 12/09/2018 DATE AND TIME SEEN: 12/10/2018 at 9 a.m. CONSULTANTS: 1. Guille Yates M.D. 2. Sergio Montelongo M.D. CHIEF COMPLAINT: Alcohol poisoning and gastritis. BRIEF HISTORY: This is a 48-year-old male, who was admitted alcoholic, he has been drinking quite a bit, yesterday drank likely 2 to 4 liters of vodka and became very altered and lethargic, sent to [place], diagnosed with alcohol poisoning and gastritis and admitted to medical floor for further treatment. Currently, O2 NC, calm, feeling better, slightly nauseous. PAST MEDICAL HISTORY: Alcoholism. PAST SURGICAL HISTORY: Hair transplant. MEDICATIONS: Include amitriptyline, trazodone, folic acid, gabapentin, calcium, thiamine, lorazepam, Tylenol, and IV fluids. ALLERGIES: Penicillin and Keflex. SOCIAL HISTORY: Positive smoke. Positive alcohol. Positive marijuana use. OBJECTIVE: GENERAL: Calm in bed, oriented x3, no acute distress. VITAL SIGNS: Show temperature is 98 degrees, pulse 104, respirations 19, blood pressure 128/83. CARDIOVASCULAR: No murmurs. LUNGS: Distant and clear. ABDOMEN: Bowel sound positive. Nontender. Nondistended. EXTREMITIES: No cyanosis or edema. NEUROLOGIC: The patient moves all extremities, slightly weak. LABORATORY DATA: Labs at this time shows hemoglobin and hematocrit 13/39, otherwise CBC is normal. BMP shows glucose 68, otherwise normal. ASSESSMENT: 1. Alcohol poisoning. 2. Gastritis. PLAN: 1. Detox, IV fluids. 2. O2 and Pulmonary treatment as needed. 3. CBC and BMP in the morning. 4. Dietary evaluation. 5. Psychiatry evaluation. Aaron Llanos D.O. DR: HENRY JOB#: [id number] CC:
[2018-12-10 12:00] VITALS: BP 146/88
--- NOTE | 2018-12-10 13:27 | NUR ---
NURSE NOTES:: patient brought Trazodone 150mg from home. patient states the trazodone provided by hospital last night did not work and wants resume home medication. verify medication with pharmacist, hospital does not have same generic that patient brought. pharmacist notified dr. jenkins and received order to resume home medication of trazodone 150mg give 225mg po QHS. and dc naltrexine since patient does not take this medication anymore. order noted and carried out.
--- NOTE | 2018-12-10 15:56 | NUR ---
CASE MANAGEMENT: INITIAL REVIEW 48 YO M PRESENTED TO OUR ED FROM HOME CC: ETOH INTOXICATION PMHx: HTN. ASTHMA. SI:ACIDOSIS. DEHYDRATION. T 97 HR 116 RR 22 B/P 139/87 SATS 99% ON RA CO2 17 AST 80 ALT 92 IS: NS BOLUS X2 ATIVAN IV X1 ZOFRAN IV X1 BENADRYL IV X1 REGLAN IV X1 PATIENT ADMITTED TO MED/SURG 12/09/2018 @ 2047 DCP: PATIENT TO BE DISCHARGED TO HOME ONCE MEDICALLY CLEARED. PLAN OF CARE: Detox, IV fluids. O2 and Pulmonary treatment as needed. Psychiatry evaluation. Addendum: 12/10/18 at 1603 by Connie Francisco 12/10/2018 SI:ACIDOSIS. DEHYDRATION. T 99.2 HR 105 RR 19 B/P 146/88 SATS 99% ON 2L/NC GLU 68 IS: ELAVIL PO QHS GABAPENTIN PO BID CYMBALTA PO QD MULTIVITAMINS IV @ 75 mL/HR THIAMINE IV Q24H MED/SURG STATUS DCP: PATIENT TO BE DISCHARGED TO HOME ONCE MEDICALLY CLEARED. PLAN OF CARE: Detox, IV fluids. O2 and Pulmonary treatment as needed. Psychiatry evaluation. Addendum: 12/12/18 at 1810 by Connie Francisco CM DEBBIE LARRY
[2018-12-10 16:00] VITALS: BP 144/72
--- NOTE | 2018-12-10 17:00 | NUR ---
NURSE NOTES: patient's IV infiltrated. 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 tried to reinsert twice but failed to get one since patient was shaking fingers. patient wanted to try later.
--- NOTE | 2018-12-10 18:13 | NUR ---
NURSE NOTES: patient asking some medication equivalent to Lansoprazole which he takes at home daily. Pharmacy recommended pantoprazole. notified Milan Owens and received order Pantoprazole 40mg tab po now and pantoprazole 40mg tab po daily from 12/11/18. order noted and carried out.
--- NOTE | 2018-12-10 18:41 | NUR ---
NURSE NOTES: patient refused to get IV line at this time.
--- NOTE | 2018-12-10 19:00 | NUR ---
HAND-OFF: Report given to DAVID Styles.
--- NOTE | 2018-12-10 19:20 | NUR ---
NURSE NOTES: Pt received awake, alert X 4, informing me that he is refusing to have an IV reinserted. I informed Dr. Yates he is aware, new order of PO Ativan, at bedside, no c/o pain or signs of distress. Will continue to monitor.
[2018-12-10] MEDS ORDERED: LORazepam 1mg tab ORAL PRN (19:44)
[2018-12-10 20:00] VITALS: BP 138/93
[2018-12-10] MEDS ORDERED: TRAZODONE 150 MG ORAL SCH (21:00)
[2018-12-10] MEDS ORDERED: TraZODone 100mg tab ORAL SCH (21:00)
--- NOTE | 2018-12-10 22:00 | Consultation ---
DATE OF CONSULTATION: 12/10/2018 GASTROLOGY CONSULTATION CHIEF COMPLAINT: I was asked to see this patient by Dr. Walker for evaluation of alcohol abuse. HISTORY OF PRESENT ILLNESS: The patient is a 48-year-old white man, who is admitted to the hospital after binge alcohol drinking. He thinks he drank 4 to 5 bottles castro goose vodka and has passed out. He was brought to the hospital lethargic and altered. He was admitted and feels much better overnight. He has had no pain, nausea, or vomiting overnight. He understands his alcohol problem and wants to pursue alcoholic rehabilitation program. He has already been tried on medications such as Antabuse for alcohol cessation without success. PAST MEDICAL HISTORY: History of alcoholism. PAST SURGICAL HISTORY: Status post hair transplant. MEDICATIONS: Amitriptyline, trazodone, gabapentin, and thiamine. ALLERGIES: Penicillin and Keflex. FAMILY HISTORY: Noncontributory. SOCIAL HISTORY: The patient does smoke and he does drink alcohol. He uses marijuana. 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 REVIEW OF SYSTEMS: Otherwise negative. PHYSICAL EXAMINATION: GENERAL: The patient is a pleasant white man, seen in his room. HEENT: Normocephalic and atraumatic. Sclerae anicteric. Oropharynx clear. NECK: Supple. CHEST: Clear to auscultation. CARDIOVASCULAR: Revealed a regular rate. ABDOMEN: Soft and flat. Good bowel sounds. There is no tenderness or organomegaly. EXTREMITIES: Revealed no edema. LABORATORY DATA: Noted. ASSESSMENT AND PLAN: This patient presents with acute alcohol poisoning, which appears to have resolved rapidly. He is somewhat symptom-free at this time and his diet should be advanced and he should be observed. Should he continue to develop, he will be discharged perhaps tomorrow. He was strongly advised to refrain from alcohol with other modalities that he can participate in. He should be given thiamine, multivitamins, and folate and alcohol . Thank you for asking me to participate in the care of this patient. Chasity Dejesus M.D. DR: VINAY JOB#: [id number] CC:
[2018-12-11 04:00] VITALS: BP 133/90
--- NOTE | 2018-12-11 07:04 | NUR ---
NURSE NOTES: Pt okay to be discharged by Dr. Yates at the bedside, pt discharged without needs, pt left with his .
--- NOTE | 2018-12-11 07:10 | Pulmonology Progress Note ---
Assessment/Plan Problems: (1) Acute alcoholic intoxication (2) Gastritis Assessment/Plan feeling much better sober wants to go to a drug rehab program. is at the bed site who will take her there. Subjective ROS Limited/Unobtainable: No Interval Events: met with at the bed site, he wants to go home, very adamanet. Allergies: Coded Allergies: CEPHALEXIN (Verified Allergy, Unknown, 08/20/18) PENICILLINS (Verified Allergy, Unknown, 08/20/18) Objective Last 24 Hour Vital Signs Date Time Temp Pulse Resp B/P (MAP) Pulse Ox O2 Delivery O2 Flow Rate FiO2 12/11/18 04:00 97.5 92 20 133/90 (104) 98 12/10/18 21:00 Nasal Cannula 2.0 12/10/18 20:00 97.6 97 20 138/93 (108) 98 12/10/18 16:00 98.5 67 20 144/72 (96) 99 12/10/18 12:00 99.2 105 19 146/88 (107) 99 12/10/18 09:00 Nasal Cannula 2.0 12/10/18 08:00 98.2 104 19 128/83 (98) 98 Intake and Output 12/10/18 12/11/18 19:00 07:00 Intake Total 712 ml 1520 ml Balance 712 ml 1520 ml Intake Oral 720 ml IV Total 712 ml Other 800 ml # Bowel Movements 3 General Appearance: WD/WN, no acute distress HEENT: normocephalic, atraumatic Respiratory/Chest: chest wall non-tender, lungs clear, normal breath sounds Cardiovascular: normal peripheral pulses, normal rate Abdomen: normal bowel sounds, soft, non tender Neurologic/Psychiatric: acid painter II-XII grossly normal, no motor/sensory deficits Current Medications Medications (Trade) Dose Ordered Sig/Milton Route PRN Reason Start Time Stop Time Status Last Admin Dose Admin Acetaminophen (Tylenol) 650 mg Q6H PRN ORAL Mild Pain/T>100.5 12/10/18 01:45 01/09/19 01:44 Amitriptyline HCl (Elavil) 50 mg BEDTIME ORAL 12/10/18 21:00 01/09/19 20:59 12/10/18 20:05 Chlordiazepoxide (Librium) 25 mg Q8H PRN ORAL Agitation 12/10/18 01:45 12/17/18 01:44 Duloxetine HCl (Cymbalta) 90 mg DAILY ORAL 12/10/18 09:00 01/09/19 08:59 12/10/18 08:43 Folic Acid 1 mg/ Magnesium Sulfate 2000 mg/ Multivitamins 10 ml/Sodium Chloride 1,014.2 ml @ 75 mls/hr Q24H IV 12/10/18 09:00 01/09/19 08:59 12/10/18 08:43 Gabapentin (Neurontin) 1,200 mg BID ORAL 12/10/18 09:00 01/09/19 08:59 12/10/18 17:12 Lorazepam (Ativan) 1 mg Q6H PRN ORAL For Anxiety 12/10/18 19:44 12/17/18 19:43 Pantoprazole (Protonix) 40 mg DAILY ORAL 12/11/18 09:00 01/10/19 08:59 Patient Own Medication (Patient's Own Med) 1.5 ea QHS ORAL 12/10/18 21:00 01/09/19 20:59 12/10/18 20:05 Thiamine HCl 100 mg/Dextrose 56 ml @ 112 mls/hr Q24H IVPB 12/10/18 09:00 01/09/19 08:59 12/10/18 08:44 Vitamin D (Vitamin D) 5,000 intlu DAILY ORAL 12/10/18 09:00 01/09/19 08:59 12/10/18 08:43 Guille Yates MD Dec 11, 2018 07:10
--- NOTE | 2018-12-11 07:50 | NUR ---
NURSE NOTES: Pt called and informed that he left home medication with the pharmacy and he states he will get it.
--- NOTE | 2018-12-11 10:15 | Consultation ---
DATE OF CONSULTATION: 12/10/2018 PSYCHOTHERAPY CONSULTATION PROGRESS NOTE CONSULTING PHYSICIAN: Chichi Ramírez PsyD. TREATING ATTENDING PHYSICIAN: Aaron Llanos D.O. HISTORY OF PRESENT ILLNESS: This is a 48-year-old male patient with . The patient states that he has an extensive history of substance use. The patient states that to go to a rehab facility. He states that rehab facility for treatment. At this time, he denies suicidal or homicidal thoughts of ideation. He denies any auditory or visual hallucinations. The patient does have depression and anxiety, he states that he had recently lost his father and a son and is also grieving. The patient was initially brought into the hospital for dehydration and referred to psychotherapeutic services to treat his depression and anxiety. However, at this time, the patient denies suicidal or homicidal thoughts of ideation. PAST MEDICAL HISTORY: Includes a history of gastritis and dehydration. ALLERGIES: The patient has allergies to and . SUBSTANCE ABUSE HISTORY: The patient has a history of acute alcohol use. PSYCHIATRIC HISTORY: The patient states that he has a history of depression, anxiety, and possible bipolar disease. SOCIAL HISTORY: The patient is a 48-year-old male patient . Financially sustained through [employer]. MENTAL STATUS EXAMINATION: The patient is alert and oriented to person, place, time, and situation. His mood is depressed. Affect is congruent. Thought process, disorganized. Thought content, limited. Poor attention and concentration. Poor insight, judgment, and impulse control. DIAGNOSIS: Bipolar 1 disorder, mixed, moderate without psychotic features. I ASSESSED THIS PATIENT. PROVIDED THE PATIENT WITH: 1. Supportive psychotherapy, which is focused on . 2. Provided the patient with cognitive behavioral therapy, which is focused on helplessness, hopelessness, . Plan is to maintain medication compliance, discussed positive coping skills stabilizing thoughts and behavior. Psychotherapy provided to this patient, 15 minutes. This clinician has reviewed the patient's chart. Discussed treatment with treatment team. Chichi Ramírez PsyD. DR: ARTURO JOB#: [id number] CC:
--- NOTE | 2018-12-12 13:10 | Discharge Summary ---
Discharge Summary Discharge Summary _ DATE OF ADMISSION: 12/09/2018 DATE OF DISCHARGE: 12/11/2018 DISCHARGED BY: Dr. Llanos REASON FOR ADMISSION: 48 years old male with past medical history of alcoholism, admitted with alcohol intoxication. Patient admitted to heavy drinking recently. On the day prior to admission , he drank 2 to 4 L of vodka, and subsequently became very altered and lethargic. Patient subsequently was sent to [facility] for further evaluation. He was diagnosed with alcohol poisoning and gastritis and admitted to medical floor for further management. Upon evaluation in emergency department no leukocytosis , AST 80 ,ALT 92. No leukocytosis ,no anemia , stable renal parameters. CONSULTANTS: pulmonary Dr. Yates psychotherapist Dr. Ramírez, HOSPITAL COURSE: Patient started on IV fluids with banana bag. Librium provided as needed for agitation. Ativan was on board as needed for possible withdrawal seizure. Supplemental oxygen titrated as needed to keep pulse oximetry above 92%. Pulmonary toilet was not standby as needed. GI prophylaxis provided. Home medication resumed. Psychotherapist followed and provided patient with the cognitive behavioral therapy along with supportive psychotherapy . Patient clinically stabilized and was ready for discharge home. Patient sober at this time. She was counseled on abstinence from alcohol. He wants to go to drug rehabilitation program. The at the bedside and stated that she will take him . FINAL DIAGNOSES: Acute alcohol intoxication Gastritis DISCHARGE MEDICATIONS: List of medication was sent with patient. DISCHARGE INSTRUCTIONS: Patient was discharged home. Follow up with primary care provider in one week. I have been assigned to dictate discharge summary for this account. I was not involved in the patient's management. Delores Magana NP Dec 12, 2018 13:10
== END 2018-12-11 07:00 | disposition home or self-care (01) | DRG 897 ==
LOC: EMR 17:40 → 4E 20:48 → EDBEDREQ 21:07 → 4E 21:32
DX: F10.229 Alcohol dependence with intoxication, unspecified (principal); F31.89 Other bipolar disorder; T51.0X1A Toxic effect of ethanol, accidental (unintentional), initial encounter; R41.82 Altered mental status, unspecified; K29.20 Alcoholic gastritis without bleeding; Z88.1 Allergy status to other antibiotic agents; Z88.0 Allergy status to penicillin; F41.8 Other specified anxiety disorders; F43.21 Adjustment disorder with depressed mood
CPT/HCPCS: 36415; 80048; 80053; 85025; 96361; 96374; 96375; 96376; 99285; J2405; J2765

== ENCOUNTER 2018-12-20 01:21 | Inpatient (IN) | payer BC ==
[~2018-12-20] VITALS: Ht 172.7 cm; Wt 76.7 kg
[2018-12-20] VITALS (8 sets, daily range): BP systolic 131–158; BP diastolic 84–111
[~2018-12-20 01:21] MED LIST changes: +AMITRIPTYLINE100 MG ORAL; +CALCIUM500 M3 PO; +CYMBALTA30 MG ORAL; +GABAPENTIN600 MG ORAL; +NALTREXONE HCL50 MG PO; +TRAZODONE HCL150 MG ORAL; +VITAMIN B-1100 MG ORAL; +VITAMIN D400 INTLU ORAL
--- NOTE | 2018-12-20 01:30 | NUR ---
ED Nurse Note: Received with c/o vomiting for the last eight hours. Pt is actively dry heaving. Abdomen soft, non tender; pt denies any pain. Admits to drinking "a lot of alcohol today. 0150: Pt observe putting his fingers in his throat. Addendum: 12/20/18 at 0327 by MSCHRAGE Pt instructed to remain NPO, but continues to drink water.
--- NOTE | 2018-12-20 01:39 | Emergency Room Report ---
History of Present Illness General Chief Complaint: Nausea, Vomiting, and Diarrhea Source: Patient, EMS Present Illness HPI Patient 48-year-old male brought in by EMS after increased nausea and vomiting. Patient a prior history of alcohol abuse. He had recently heavy alcohol intake. He reports having increased nausea and vomiting. Reports having multiple episodes of similar symptoms. He reports having last alcohol intake approximately 1 hour prior to arrival. He had not been having any fever. Allergies: Coded Allergies: CEPHALEXIN (Verified Allergy, Unknown, 08/20/18) PENICILLINS (Verified Allergy, Unknown, 08/20/18) Patient History Past Medical History: see triage record Reviewed Nursing Documentation: PMH: Agreed; PSxH: Agreed Nursing Documentation-PMH Hx Cardiac Problems: Yes Hx Hypertension: Yes Hx Asthma: Yes Hx Cancer: No Hx Gastrointestinal Problems: No - etoh Hx Neurological Problems: No Review of Systems All Other Systems: limited - By intoxication. Physical Exam Vital Signs Date Time Temp Pulse Resp B/P (MAP) Pulse Ox O2 Delivery O2 Flow Rate FiO2 12/20/18 01:22 98.1 136 18 88/51 (63) 97 Room Air Sp02 EP Interpretation: reviewed, normal General Appearance: normal inspection, alert, non-toxic, Chronically Ill Head: atraumatic ENT: normal ENT inspection, hearing grossly normal, normal voice Neck: normal inspection, full range of motion, supple, no bony tend Respiratory: normal inspection, lungs clear, normal breath sounds, no respiratory distress, no retraction, no wheezing Cardiovascular #1: no edema, tachycardia Gastrointestinal: normal inspection, normal bowel sounds, non tender, soft, no guarding, no hernia Genitourinary: no CVA tenderness Musculoskeletal: normal inspection, back normal, normal range of motion Neurologic: normal inspection, alert, oriented x3, responsive, 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 Differential diagnosis include was not limited to pancreatitis, alcoholic ketosis, diabetic ketoacidosis, perforated ulcer among others. Because of complexity of patient' s case laboratory testing and imaging studies were ordered. Laboratory testing was notable for markedly elevated white blood count. Patient was noted to be markedly tachycardic with initial heart rate greater than 130. He was noted to be initially hypotensive. Patient was noted to have multiple episodes of vomiting largely self-induced sticking his finger down his throat.Patient does state that he smokes marijuana daily. Repeat blood test were ordered due to patient's significant acidosis after IV fluids. Patient was noted to have current alcohol intoxication with blood alcohol greater than 200. Capsaicin cream was ordered due to patient's frequent marijuana use to help alleviate symptoms of vomiting and nausea Patient is noted to have clear emesis while in the emergency department. He was started on IV fluids. Urine drug screen was positive for marijuana. Basic metabolic panel showed metabolic acidosis with some acute elevation of his creatinine.Patient was given IV magnesium due to QT prolongation.Patient will be admitted for further management of metabolic acidosis and acute renal insufficiency Labs Test 12/20/18 01:30 White Blood Count 31.6 K/UL (4.8-10.8) Red Blood Count 5.40 M/UL (4.70-6.10) Hemoglobin 17.9 G/DL (14.2-18.0) Hematocrit 54.0 % (42.0-52.0) Mean Corpuscular Volume 100 FL (80-99) Mean Corpuscular Hemoglobin 33.1 PG (27.0-31.0) Mean Corpuscular Hemoglobin Concent 33.1 G/DL (32.0-36.0) Red Cell Distribution Width 13.6 % (11.6-14.8) Platelet Count 368 K/UL (150-450) Mean Platelet Volume 6.9 FL (6.5-10.1) Neutrophils (%) (Auto) % (45.0-75.0) Lymphocytes (%) (Auto) % (20.0-45.0) Monocytes (%) (Auto) % (1.0-10.0) Eosinophils (%) (Auto) % (0.0-3.0) Basophils (%) (Auto) % (0.0-2.0) Differential Total Cells Counted 100 Neutrophils % (Manual) 79 % (45-75) Lymphocytes % (Manual) 11 % (20-45) Monocytes % (Manual) 10 % (1-10) Eosinophils % (Manual) 0 % (0-3) Basophils % (Manual) 0 % (0-2) Band Neutrophils 0 % (0-8) Platelet Estimate Adequate Platelet Morphology Normal Red Blood Cell Morphology Normal Sodium Level 143 MMOL/L (136-145) Potassium Level 4.7 MMOL/L (3.5-5.1) Chloride Level 98 MMOL/L (98-107) Carbon Dioxide Level 12 MMOL/L (21-32) Anion Gap 33 mmol/L (5-15) Blood Urea Nitrogen 25 mg/dL (7-18) Creatinine 2.1 MG/DL (0.55-1.30) Estimat Glomerular Filtration Rate 34.0 mL/min (>60) Glucose Level 81 MG/DL (74-106) Calcium Level 9.5 MG/DL (8.5-10.1) Total Bilirubin 0.5 MG/DL (0.2-1.0) Aspartate Amino Transf (AST/SGOT) 94 U/L (15-37) Alanine Aminotransferase (ALT/SGPT) 66 U/L (12-78) Alkaline Phosphatase 106 U/L (46-116) Troponin I 0.000 ng/mL (0.000-0.056) Total Protein 9.3 G/DL (6.4-8.2) Albumin 5.2 G/DL (3.4-5.0) Globulin 4.1 g/dL Albumin/Globulin Ratio 1.3 (1.0-2.7) Lipase 45 U/L (73-393) EKG Diagnostic Results Rate: tachycardiac Rhythm: NSR ST Segments: no acute changes Last Vital Signs Date Time Temp Pulse Resp B/P (MAP) Pulse Ox O2 Delivery O2 Flow Rate FiO2 12/20/18 01:22 98.1 136 18 88/51 (63) 97 Room Air Status: improved Disposition: ADMITTED INPATIENT Condition: Stable Gurmeet Krueger MD Dec 20, 2018 01:39
--- NOTE | 2018-12-20 01:40 | NUR ---
HAND-OFF: Report given to DAVID Beltre.
[2018-12-20 01:43] LABS: HEMOGLOBIN 17.9 G/DL (14.2-18.0); MEAN CORPUSCULAR VOLUME 100 FL (80-99); PLATELET COUNT 368 K/UL (150-450); RED CELL DISTRIBUTION WIDTH 13.6 % (11.6-14.8)
[2018-12-20 01:49] LABS: WHITE BLOOD COUNT 31.6 K/UL (4.8-10.8)
[2018-12-20 01:54] LABS: ANION GAP 33 mmol/L (5-15); BLOOD UREA NITROGEN 25 mg/dL (7-18); CALCIUM 9.5 MG/DL (8.5-10.1); CARBON DIOXIDE 12 MMOL/L (21-32); CHLORIDE 98 MMOL/L (98-107); CREATININE 2.1 MG/DL (0.55-1.30); POTASSIUM 4.7 MMOL/L (3.5-5.1); SODIUM 143 MMOL/L (136-145)
[2018-12-20 01:59] LABS: ALANINE AMINOTRANSFERASE 66 U/L (12-78); ALBUMIN 5.2 G/DL (3.4-5.0); ALBUMIN/GLOBULIN RATIO 1.3 (1.0-2.7); ALKALINE PHOSPHATASE 106 U/L (46-116); ASPARTATE AMINO TRANSFERASE 94 U/L (15-37); BILIRUBIN,TOTAL 0.5 MG/DL (0.2-1.0)
[2018-12-20] MEDS ORDERED: D5 1/2NS w/KCl 20mEq 1,000 ML IV SCH (02:15)
[2018-12-20] MEDS ORDERED: LR 1000ml 1,000 ML IV SCH (02:15)
--- NOTE | 2018-12-20 03:05 | NUR ---
ED Nurse Note: Pt observe putting his fingers in his throat, and keep vomiting.
[2018-12-20 03:41] LABS: APPEARANCE,URINE CLEAR; BILIRUBIN, URINE NEGATIVE (NEGATIVE); COLOR,URINE PALE YELLOW; GLUCOSE, URINE (UA) NEGATIVE (NEGATIVE); KETONES,URINE 2+ (NEGATIVE); LEUKOCYTE ESTERASE ,URINE NEGATIVE (NEGATIVE); NITRITE,URINE NEGATIVE (NEGATIVE); PH,URINE 5 (4.5-8.0); PROTEIN,URINE 2+ (NEGATIVE); UROBILINOGEN,URINE NORMAL MG/DL (0.0-1.0)
[2018-12-20] MEDS ORDERED: Capsaicin 0.075% Cream TOPIC ONE (04:00)
[2018-12-20] MEDS ORDERED: LORazepam Inj 2mg/ml 1ml IV ONE (04:00)
[2018-12-20 04:03] LABS: INR 0.9 (0.9-1.1)
--- NOTE | 2018-12-20 05:33 | NUR ---
ED Nurse Note: Patient refused VRE CRE swabs.
--- NOTE | 2018-12-20 06:25 | NUR ---
NURSE NOTES: Received report over the phone from Patt,ER nurse,Patient stable,A&O x 4,ST on monitoring coordinator,tolerated r/air well,ambulatory stable,still vomiting, at bedside,waiting pt on a floor,room is ready.
--- NOTE | 2018-12-20 06:40 | NUR ---
ED Nurse Note: Patient was admited to SDU due to alcohol intoxication. AAO x4, VSS at this time, skin is dry, warm to touch, still by bed side. Patient was transfered to the unit via gurney, by ACLS protocol with all belongings.
--- NOTE | 2018-12-20 07:45 | NUR ---
NURSE NOTES: Received pt's SBAR report from charge nurse (Isabel Ibarra). Pt received in stable condition with no cardiopulmonary distress noted. Pt is hooked to monitor car operator currently S-Tach. Pt is AAOx4 on RA. Pt is currently nauseated, emesis basin noted with vomit at bedside. Pt uses urinal to void with yellow urine noted in urinal. Pt has 20g RFA and RAC IVs noted. Skin is intact with visible tattoos on both extremities and chest. Pt's belongings at bedside and pt is wearing his Rx glasses at this time. Belongings list signed by pt. Pt educated about fall prevention and instructed to use call light for assistance before getting out bed. Bed is in lowest position with alarm on, call light within reach, side rails up x 3, will continue to monitor pt.
--- NOTE | 2018-12-20 07:50 | NUR ---
NURSE NOTES: Pt states he has been hospitalized within the past month however he refuses to be swabbed for CRE/VRE via rectum. Explained implications to pt and importance of this screening test but pt still refuses.
[2018-12-20] MEDS ORDERED: D5 1/2NS 1,000 ML IV SCH (08:18)
[2018-12-20] MEDS ORDERED: Promethazine HCl 12.5 MG in NS 55 ML IV PRN (08:30)
[2018-12-20] MEDS ORDERED: Metoclopramide 10mg/2ml Inj IVP PRN ×2 (08:30→21:36)
[2018-12-20] MEDS ORDERED: Morphine Sulfate 2mg/ml Inj(IV/IM USE ONLY) IVP PRN ×2 (08:30→21:36)
[2018-12-20] MEDS ORDERED: Promethazine HCl 25 MG in NS 55 ML IV PRN (08:30)
[2018-12-20] MEDS ORDERED: Miralax 17gm pkt ORAL PRN ×2 (08:30→21:37)
[2018-12-20] MEDS ORDERED: LORazepam Inj 2mg/ml 1ml IV PRN (08:30)
[2018-12-20] MEDS ORDERED: Nitroglycerin Subl 0.4mg tab SL PRN ×2 (08:30→21:45)
--- NOTE | 2018-12-20 08:41 | Diagnostic Imaging Report ---
Indication: Abdominal pain for 2 days Technique: Spiral acquisitions obtained through the abdomen and pelvis. No oral contrast utilized, per emergency room physician request No IV contrast utilized, per referring physician request.. Multiplanar reconstructions were generated. Total dose length product 705.86 mGycm. CTDIvol(s) 13.88 mGy. Dose reduction achieved using automated exposure control Comparison: None Findings: Normal appendix. No evidence of diverticulosis or diverticulitis. No small bowel distention. No free or loculated intraperitoneal gas or fluid is evident. The stomach is distended. The distal esophagus is unremarkable. There is questionably wall thickening of the gastric antrum and proximal duodenum. There is equivocal minimal wall thickening of the ascending, transverse, descending colon, although this is probably just an artifact of under distention. Lack of IV contrast limits assessment of the solid organs. The liver is mildly hypoattenuating, consistent with fatty change. No focal abnormality. The gallbladder, bile ducts, pancreas, spleen, adrenals, kidneys are unremarkable. No retroperitoneal or mesenteric mass or adenopathy.No pelvic mass or adenopathy. The included lung bases demonstrate a 3 mm pleural-based nodule in the right costophrenic sulcus. The bones demonstrate mild degenerative changes of the lumbosacral junction. Impression: No definite acute abnormality Equivocal colonic wall thickening, most likely artifact of under distention but could indicate early/mild colitis changes. Correlate with clinical findings Gastric distention. Equivocal mild wall thickening of the gastric antrum and duodenum, could indicate gastritis/duodenitis changes. Correlate with clinical findings Fatty liver Incidental findings as noted, including focal right basilar pleural thickening or scarring, degenerative lumbosacral spondylosis This agrees with the preliminary interpretation provided overnight by [employer] [facility] [employer] teleradiology service. The CT scanner at [facility] is accredited by the [employer] and the scans are performed using protocols designed to limit radiation exposure to as low as reasonably achievable to attain images of sufficient resolution adequate for diagnostic evaluation.
--- NOTE | 2018-12-20 08:58 | General Progress Note ---
Assessment/Plan Problem List: (1) Gastritis ICD Codes: K29.70 - Gastritis, unspecified, without bleeding SNOMED: 0964566 (2) Acute alcoholic intoxication ICD Codes: F10.929 - Alcohol use, unspecified with intoxication, unspecified SNOMED: 89374203 (3) Metabolic acidosis ICD Codes: E87.2 - Acidosis SNOMED: 55009632 Assessment/Plan: increase IVF to 125 cc banana bag clears repeat labs increase zofran CT reviewed fu abd us Subjective ROS Limited/Unobtainable: Yes Allergies: Coded Allergies: CEPHALEXIN (Verified Allergy, Unknown, 08/20/18) PENICILLINS (Verified Allergy, Unknown, 08/20/18) Subjective c/o vomiting Objective Last 24 Hour Vital Signs Date Time Temp Pulse Resp B/P (MAP) Pulse Ox O2 Delivery O2 Flow Rate FiO2 12/20/18 07:00 98.7 131 28 158/98 (118) 99 12/20/18 06:40 98.6 105 22 145/85 98 Room Air 12/20/18 05:40 98.6 106 22 148/98 100 Room Air 12/20/18 03:40 98.6 106 22 148/98 100 Room Air 12/20/18 01:40 98.6 125 22 145/111 100 Room Air 12/20/18 01:22 98.1 136 18 88/51 (63) 97 Room Air Intake and Output 12/19/18 12/20/18 19:00 07:00 Output Total 350 ml Balance -350 ml Output Emesis 350 ml Laboratory Tests 12/20/18 01:30: White Blood Count 31.6*H, Red Blood Count 5.40, Hemoglobin 17.9, Hematocrit 54.0H, Mean Corpuscular Volume 100H, Mean Corpuscular Hemoglobin 33.1H, Mean Corpuscular Hemoglobin Concent 33.1, Red Cell Distribution Width 13.6, Platelet Count 368, Mean Platelet Volume 6.9, Neutrophils (%) (Auto) , Lymphocytes (%) ( Auto) , Monocytes (%) (Auto) , Eosinophils (%) (Auto) , Basophils (%) (Auto) , Differential Total Cells Counted 100, Neutrophils % (Manual) 79H, Lymphocytes % (Manual) 11L, Monocytes % (Manual) 10, Eosinophils % (Manual) 0, Basophils % ( Manual) 0, Band Neutrophils 0, Platelet Estimate Adequate, Platelet Morphology Normal, Red Blood Cell Morphology Normal, Sodium Level 143, Potassium Level 4.7 , Chloride Level 98, Carbon Dioxide Level 12L, Anion Gap 33H, Blood Urea Nitrogen 25H, Creatinine 2.1H, Estimat Glomerular Filtration Rate 34.0, Glucose Level 81, Calcium Level 9.5, Total Bilirubin 0.5, Aspartate Amino Transf (AST/ SGOT) 94H, Alanine Aminotransferase (ALT/SGPT) 66, Alkaline Phosphatase 106, Troponin I 0.000, Total Protein 9.3H, Albumin 5.2H, Globulin 4.1, Albumin/ Globulin Ratio 1.3, Lipase 45L, Salicylates Level 5.1, Acetaminophen Level < 2L , Serum Alcohol 196 12/20/18 03:30: Urine Color Pale yellow, Urine Appearance Clear, Urine pH 5, Urine Specific [place] 1.025, Urine Protein 2+H, Urine Glucose (UA) Negative, Urine Ketones 2+H , Urine Blood 1+H, Urine Nitrite Negative, Urine Bilirubin Negative, Urine Urobilinogen Normal, Urine Leukocyte Esterase Negative, Urine RBC 0-2H, Urine WBC 0, Urine Squamous Epithelial Cells None, Urine Bacteria None 12/20/18 03:40: Prothrombin Time 9.8, Prothromb Time International Ratio 0.9, Activated Partial Thromboplast Time 25 Height (Feet): 5 Height (Inches): 8.00 Weight (Pounds): 170 General Appearance: alert EENT: normal ENT inspection Neck: supple Cardiovascular: tachycardia Respiratory/Chest: decreased breath sounds Abdomen: normal bowel sounds, non tender, soft Extremities: non-tender Sergio Montelongo MD Dec 20, 2018 08:58
[2018-12-20] MEDS ORDERED: DULoxetine 30mg cap ORAL SCH (09:00)
[2018-12-20] MEDS ORDERED: Pantoprazole Inj IV SCH (09:00)
[2018-12-20] MEDS: D5 1/2NS 1,000 ML IV SCH ×3 (09:08→21:38)
[2018-12-20] MEDS: Heparin 5000 units/ml inj SUBQ SCH ×2 (09:08→21:22)
[2018-12-20 09:41] LABS: HEMATOCRIT 42.1 % (42.0-52.0); HEMOGLOBIN 14.7 G/DL (14.2-18.0); MEAN CORPUSCULAR VOLUME 99 FL (80-99); PLATELET COUNT 215 K/UL (150-450); RED BLOOD COUNT 4.26 M/UL (4.70-6.10); RED CELL DISTRIBUTION WIDTH 13.3 % (11.6-14.8)
[2018-12-20 09:45] LABS: ANION GAP 21 mmol/L (5-15); BLOOD UREA NITROGEN 19 mg/dL (7-18); CALCIUM 8.1 MG/DL (8.5-10.1); CARBON DIOXIDE 16 MMOL/L (21-32); CHLORIDE 98 MMOL/L (98-107); CREATININE 1.3 MG/DL (0.55-1.30); POTASSIUM 4.8 MMOL/L (3.5-5.1); SODIUM 135 MMOL/L (136-145)
[2018-12-20 09:49] LABS: ALANINE AMINOTRANSFERASE 52 U/L (12-78); ALBUMIN 4.6 G/DL (3.4-5.0); ALBUMIN/GLOBULIN RATIO 1.6 (1.0-2.7); ALKALINE PHOSPHATASE 82 U/L (46-116); ASPARTATE AMINO TRANSFERASE 66 U/L (15-37); BILIRUBIN,TOTAL 0.7 MG/DL (0.2-1.0)
--- NOTE | 2018-12-20 10:16 | NUR ---
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 ACUTE ALCOHOLIC INTOXICATION VS: BP 88/51, P 136, T 98.0, RR 18, SpO2 97 WBC 31.6, Hct 54.0, BUN 25, CR 2.1, AST 94, ALBUMIN 5.2, TOTAL PROTEIN 9.3, SERUM ALCOHOL [address]: FATTY LIVER IS:PEPCID 20mg IVP NS x1L IV ZOFRAN 4mg IVP LACTATED RINGERS x1L IV MAGNESIUM SULFATE 100ml IVPB LORAZEPAM 1mg IV ADMITTED TO SDU DCP: RETURN HOME
--- NOTE | 2018-12-20 10:30 | NUR ---
NURSE NOTES: Pt refused Abd US states he does not want to be NPO for 4 hrs today. Will reschedule for tomorrow.
[2018-12-20] MEDS ORDERED: Folic Acid 1 MG, Magnesium Sulfate 2,000 MG, Multivitamin - 12 Injection 10 ML in Sodiu... IV SCH (11:00)
[2018-12-20] MEDS ORDERED: Thiamine 100mg in D5W 55ml IVPB SCH (11:00)
--- NOTE | 2018-12-20 11:13 | Consultation ---
History of Present Illness General Chief Complaint: Nausea, Vomiting, and Diarrhea Present Illness Allergies: Coded Allergies: CEPHALEXIN (Verified Allergy, Unknown, 08/20/18) PENICILLINS (Verified Allergy, Unknown, 08/20/18) Medication History Scheduled Amitriptyline HCl (Amitriptyline HCl), 50 MG ORAL BEDTIME, (Reported) Calcium Carbonate (Calcium), 10,000 MG PO DAILY, (Reported) Chlordiazepoxide Hcl* (Librium*), 10 MG ORAL THREE TIMES A DAY Duloxetine Hcl* (Cymbalta*), 90 MG ORAL DAILY, (Reported) Gabapentin* (Gabapentin*), 1,200 MG ORAL BID, (Reported) Mag Hydrox/Al Hydrox/Simeth (Maalox Maximum Strength Susp), 30 ML PO Q6HR Naltrexone Hcl (Naltrexone Hcl), 50 MG PO DAILY, (Reported) Omeprazole Magnesium (Prilosec Otc), 20 MG ORAL DAILY Ondansetron Odt* (Zofran Odt*), 4 MG BC EVERY 8 HOURS Thiamine Hcl* (Vitamin B-1*), 100 MG ORAL DAILY, (Reported) Trazodone* (Trazodone*), 225 MG ORAL BEDTIME, (Reported) Vitamin D (Vitamin D3), 5,000 UNITS ORAL DAILY, (Reported) Patient History Healthcare decision maker Resuscitation status Full Code Advanced Directive on File Past Medical/Surgical History Past Medical/Surgical History: (1) ETOH abuse Review of Systems All Other Systems: negative except mentioned in HPI Physical Exam General Appearance: WD/WN, no apparent distress Lines, tubes and drains: peripheral, central line HEENT: normocephalic, atraumatic Neck: non-tender, supple Respiratory/Chest: chest wall non-tender, lungs clear Breasts: no masses Cardiovascular/Chest: normal peripheral pulses, no JVD Genitourinary/Rectal: normal genital exam Extremities: normal range of motion Last 24 Hour Vital Signs Date Time Temp Pulse Resp B/P (MAP) Pulse Ox O2 Delivery O2 Flow Rate FiO2 12/20/18 09:50 131 12/20/18 09:49 132 12/20/18 07:00 98.7 131 28 158/98 (118) 99 12/20/18 06:40 98.6 105 22 145/85 98 Room Air 12/20/18 05:40 98.6 106 22 148/98 100 Room Air 12/20/18 03:40 98.6 106 22 148/98 100 Room Air 12/20/18 01:40 98.6 125 22 145/111 100 Room Air 12/20/18 01:22 98.1 136 18 88/51 (63) 97 Room Air Intake and Output 12/19/18 12/20/18 19:00 07:00 Output Total 350 ml Balance -350 ml Output Emesis 350 ml Laboratory Tests Test 12/20/18 01:30 12/20/18 03:30 12/20/18 03:40 12/20/18 09:15 White Blood Count 31.6 K/UL (4.8-10.8) *H 21.0 K/UL (4.8-10.8) H Red Blood Count 5.40 M/UL (4.70-6.10) 4.26 M/UL (4.70-6.10) L Hemoglobin 17.9 G/DL (14.2-18.0) 14.7 G/DL (14.2-18.0) Hematocrit 54.0 % (42.0-52.0) H 42.1 % (42.0-52.0) Mean Corpuscular Volume 100 FL (80-99) H 99 FL (80-99) Mean Corpuscular Hemoglobin 33.1 PG (27.0-31.0) H 34.4 PG (27.0-31.0) H Mean Corpuscular Hemoglobin Concent 33.1 G/DL (32.0-36.0) 34.9 G/DL (32.0-36.0) Red Cell Distribution Width 13.6 % (11.6-14.8) 13.3 % (11.6-14.8) Platelet Count 368 K/UL (150-450) 215 K/UL (150-450) Mean Platelet Volume 6.9 FL (6.5-10.1) 6.7 FL (6.5-10.1) Neutrophils (%) (Auto) % (45.0-75.0) % (45.0-75.0) Lymphocytes (%) (Auto) % (20.0-45.0) % (20.0-45.0) Monocytes (%) (Auto) % (1.0-10.0) % (1.0-10.0) Eosinophils (%) (Auto) % (0.0-3.0) % (0.0-3.0) Basophils (%) (Auto) % (0.0-2.0) % (0.0-2.0) Differential Total Cells Counted 100 100 Neutrophils % (Manual) 79 % (45-75) H 81 % (45-75) H Lymphocytes % (Manual) 11 % (20-45) L 10 % (20-45) L Monocytes % (Manual) 10 % (1-10) 6 % (1-10) Eosinophils % (Manual) 0 % (0-3) 0 % (0-3) Basophils % (Manual) 0 % (0-2) 3 % (0-2) H Band Neutrophils 0 % (0-8) 0 % (0-8) Platelet Estimate Adequate Adequate Platelet Morphology Normal Normal Red Blood Cell Morphology Normal Normal Sodium Level 143 MMOL/L (136-145) 135 MMOL/L (136-145) L Potassium Level 4.7 MMOL/L (3.5-5.1) 4.8 MMOL/L (3.5-5.1) Chloride Level 98 MMOL/L (98-107) 98 MMOL/L (98-107) Carbon Dioxide Level 12 MMOL/L (21-32) L 16 MMOL/L (21-32) L Anion Gap 33 mmol/L (5-15) H 21 mmol/L (5-15) H Blood Urea Nitrogen 25 mg/dL (7-18) H 19 mg/dL (7-18) H Creatinine 2.1 MG/DL (0.55-1.30) H 1.3 MG/DL (0.55-1.30) Estimat Glomerular Filtration Rate 34.0 mL/min (>60) 59.2 mL/min (>60) Glucose Level 81 MG/DL (74-106) 209 MG/DL (74-106) #H Calcium Level 9.5 MG/DL (8.5-10.1) 8.1 MG/DL (8.5-10.1) L Total Bilirubin 0.5 MG/DL (0.2-1.0) 0.7 MG/DL (0.2-1.0) Aspartate Amino Transf (AST/SGOT) 94 U/L (15-37) H 66 U/L (15-37) H Alanine Aminotransferase (ALT/SGPT) 66 U/L (12-78) 52 U/L (12-78) Alkaline Phosphatase 106 U/L (46-116) 82 U/L (46-116) Troponin I 0.000 ng/mL (0.000-0.056) Total Protein 9.3 G/DL (6.4-8.2) H 7.5 G/DL (6.4-8.2) Albumin 5.2 G/DL (3.4-5.0) H 4.6 G/DL (3.4-5.0) Globulin 4.1 g/dL 2.9 g/dL Albumin/Globulin Ratio 1.3 (1.0-2.7) 1.6 (1.0-2.7) Lipase 45 U/L (73-393) L Salicylates Level 5.1 ug/mL (2.8-20) Acetaminophen Level < 2 MCG/ML (10-30) L Serum Alcohol 196 mg/dL Urine Color Pale yellow Urine Appearance Clear Urine pH 5 (4.5-8.0) Urine Specific [place] 1.025 (1.005-1.035) Urine Protein 2+ (NEGATIVE) H Urine Glucose (UA) Negative (NEGATIVE) Urine Ketones 2+ (NEGATIVE) H Urine Blood 1+ (NEGATIVE) H Urine Nitrite Negative (NEGATIVE) Urine Bilirubin Negative (NEGATIVE) Urine Urobilinogen Normal MG/DL (0.0-1.0) Urine Leukocyte Esterase Negative (NEGATIVE) Urine RBC 0-2 /HPF (0 - 0) H Urine WBC 0 /HPF (0 - 0) Urine Squamous Epithelial Cells None /LPF (NONE/OCC) Urine Bacteria None /HPF (NONE) Prothrombin Time 9.8 SEC (9.30-11.50) Prothromb Time International Ratio 0.9 (0.9-1.1) Activated Partial Thromboplast Time 25 SEC (23-33) Height (Feet): 5 Height (Inches): 8.00 Weight (Pounds): 170 Medications Current Medications Medications (Trade) Dose Ordered Sig/[place] Route PRN Reason Start Time Stop Time Status Last Admin Dose Admin Acetaminophen (Tylenol) 650 mg Q4H PRN ORAL fever 12/20/18 08:30 01/19/19 08:29 12/20/18 10:11 Amitriptyline HCl (Elavil) 50 mg BEDTIME ORAL 12/20/18 21:00 01/19/19 20:59 Dextrose (Dextrose 50%) 25 ml Q30M PRN IV Hypoglycemia 12/20/18 08:30 01/19/19 08:29 Dextrose (Dextrose 50%) 50 ml Q30M PRN IV Hypoglycemia 12/20/18 08:30 01/19/19 08:29 Dextrose/Sodium Chloride 1,000 ml @ 125 mls/hr Q8H IV 12/20/18 09:00 01/19/19 08:59 12/20/18 09:08 Diphenhydramine HCl (Benadryl) 25 mg Q6H PRN ORAL Itching/Pruritis 12/20/18 08:30 01/19/19 08:29 Duloxetine HCl (Cymbalta) 90 mg DAILY ORAL 12/20/18 09:00 01/19/19 08:59 12/20/18 08:49 Folic Acid 1 mg/ Magnesium Sulfate 2000 mg/ Multivitamins 10 ml/Sodium Chloride 1,014.2 ml @ 125 mls/ hr Q24H IV 12/20/18 11:00 01/19/19 10:59 12/20/18 11:04 Gabapentin (Neurontin) 1,200 mg BID ORAL 12/20/18 18:00 01/19/19 17:59 Heparin Sodium (Porcine) (Heparin 5000 units/ml) 5,000 units EVERY 12 HOURS SUBQ 12/20/18 09:00 01/19/19 08:59 12/20/18 09:08 Lorazepam (Ativan 2mg/ml 1ml) 1 mg Q4H PRN IV agitation 12/20/18 08:30 12/27/18 08:29 12/20/18 10:10 Metoclopramide HCl (Reglan) 10 mg Q6H PRN IVP severe nausea 12/20/18 08:30 01/19/19 08:29 Morphine Sulfate (Morphine Sulfate) 2 mg Q4H PRN IVP severe Pain (Pain Scale 7-10) 12/20/18 08:30 12/27/18 08:29 Nitroglycerin (Ntg) 0.4 mg Q5M X 3 DOSES PRN SL Prn Chest Pain 12/20/18 08:30 01/19/19 08:29 Ondansetron HCl (Zofran) 8 mg Q6H PRN IVP Nausea & Vomiting 12/20/18 14:30 01/19/19 08:29 Pantoprazole (Protonix) 40 mg DAILY IV 12/20/18 09:00 01/19/19 08:59 12/20/18 08:48 Polyethylene Glycol (Miralax) 17 gm HSPRN PRN ORAL Constipation 12/20/18 08:30 01/19/19 08:29 Promethazine HCl (Phenergan) 25 mg Q6H PRN IM refractory nausea & vomiting 12/20/18 08:45 01/19/19 08:44 Temazepam (Restoril) 15 mg HSPRN PRN ORAL Insomnia 12/20/18 08:30 12/27/18 08:29 Thiamine HCl 100 mg/Dextrose 56 ml @ 112 mls/hr Q24H IVPB 12/20/18 11:00 01/19/19 10:59 12/20/18 11:04 Trazodone HCl (Desyrel) 225 mg BEDTIME ORAL 12/20/18 21:00 01/19/19 20:59 Assessment/Plan Problem List: (1) Acute alcoholic intoxication ICD Codes: F10.929 - Alcohol use, unspecified with intoxication, unspecified SNOMED: 71410777 (2) Gastritis ICD Codes: K29.70 - Gastritis, unspecified, without bleeding SNOMED: 2086311 (3) Metabolic acidosis ICD Codes: E87.2 - Acidosis SNOMED: 50355956 (4) ETOH abuse ICD Codes: F10.10 - Alcohol abuse, uncomplicated SNOMED: 74036809 Assessment/Plan: iv fluids librium folic acid and thiamine symptomatic treatment check electrolytes/ Guille Yates MD Dec 20, 2018 11:13
--- NOTE | 2018-12-20 12:03 | Diagnostic Imaging Report ---
Indication: Shortness of breath Technique: One view of the chest Comparison: 05/25/2010 Findings: Lungs and pleural spaces are clear. Heart size is normal. Findings are unchanged Impression: No acute process
--- NOTE | 2018-12-20 12:08 | NUR ---
NURSE NOTES: Dr. Montelongo aware pt refused Abd US today and says its okay to be rescheduled for tomorrow.
--- NOTE | 2018-12-20 13:07 | Cardiology Report ---
APPROVED REPORT EKG Measurement Heart [id number] [place] [id number] Sinus tachycardia Otherwise normal ECG
--- NOTE | 2018-12-20 13:08 | Cardiology Report ---
APPROVED REPORT EKG Measurement Heart [id number] [place] 142P69 [id number] Sinus tachycardia with premature atrial complexes Possible Left atrial enlargement Borderline ECG
--- NOTE | 2018-12-20 14:02 | NUR ---
NURSE NOTES: Pt given lunch tray and states "my already gave me a banana." I explained to the family and pt that pt is on a clear liquid diet per Dr. Montelongo's order until Nausea and vomiting resolves. Pt and verbalized understanding and agreed not to bring or eat outside food.
[2018-12-20] MEDS ORDERED: chlordiazePOXIDE 25mg Cap ORAL SCH ×3 (14:45→22:00)
[2018-12-20] MEDS ORDERED: LORazepam Inj 2mg/ml 1ml IV SCH (15:16)
--- NOTE | 2018-12-20 17:45 | Consultation ---
DATE OF CONSULTATION: 12/20/2018 INFECTIOUS DISEASE CONSULTATION CONSULTING PHYSICIAN: Randy Armijo M.D. PRIMARY ATTENDING PHYSICIAN: Eunice Toro M.D. REASON FOR CONSULTATION: Systemic inflammatory response syndrome, sepsis. HISTORY OF PRESENT ILLNESS: This is a 48-year-old white male admitted this morning because of nausea and vomiting. He has history of heavy alcohol intake, the last time was last night. He was found to be tachycardic, hypotensive with blood pressure of 88/51, had leukocytosis of 31.6, and has acute kidney injury with elevation of creatinine to 2.1. PAST MEDICAL HISTORY: He has history of heavy alcohol abuse and intoxication, history of gastritis, hypertension, and asthma. ALLERGIES: Allergic to Keflex and penicillin. MEDICATIONS: Getting amitriptyline, trazodone, gabapentin, Zofran, thiamine, banana bag, duloxetine, Protonix, promethazine, morphine, polyethylene glycol, temazepam, diphenhydramine, nitroglycerin, and metoclopramide. SOCIAL HISTORY: Heavy smoker. Smokes two-pack cigarettes a day. . He has history of heavy drinking. PSYCHIATRIC HISTORY: The patient has bipolar disorder. REVIEW OF SYSTEMS: No fever. No chills. He has dry cough, has headache, nausea, vomiting without any blood in it. No diarrhea. No problem passing urine. PHYSICAL EXAMINATION: VITAL SIGNS: Temperature 98.7, pulse 131, blood pressure is 158/98. GENERAL APPEARANCE: No acute distress, well developed. HEAD AND NECK: Scre[place] conjunctivae. HEART: Tachycardic. LUNGS: Clear. ABDOMEN: Soft, nontender. EXTREMITIES: He has no edema. NEUROLOGIC: He is awake, alert, oriented x3. LABORATORY AND DIAGNOSTIC DATA: Sodium 135, potassium 4.8, chloride 98, bicarbonate 16, BUN 19, creatinine 1.3, and glucose is 209. WBC 21, hemoglobin 14.7, hematocrit 42.1, and platelets 215,000. UA was negative for wbc, nitrite, and leukocyte esterase. Albumin is 5.2, bilirubin is 0.5, AST 94, ALT 66, lipase 45. The patient had a CT scan of the abdomen and pelvis that showed no definite acute abnormality, showed fatty liver and gastric distension. IMPRESSION: Systemic inflammatory response syndrome with tachycardia, leukocytosis, hypotension. The patient seems to have acute renal failure, alcohol intoxication, fatty liver, gastritis, acidosis, bipolar disorder, has penicillin and cephalosporin allergy. RECOMMENDATION: Observe off antibiotic. We will follow up the culture. At the end of my exam, I thank Dr. Toro for involving me in the care of this patient. Randy Armijo M.D. DR: MARTHA JOB#: [id number] CC:
--- NOTE | 2018-12-20 18:52 | Consultation ---
History of Present Illness General Date patient seen: Dec 20, 2018 Reason for Hospitalization: Nausea, Vomiting, and Diarrhea Present Illness HPI 48 year old male presented with abdominal pain, nausea, emesis. Hx of heavy EtOH abuse and states he was drinking heavily past few days. On admission noted to have leukocytosis, hypotension, abnormal lft's. surgery called to evaluate and assist with care. patient seen, chart reviewed, patient examined. Allergies: Coded Allergies: CEPHALEXIN (Verified Allergy, Unknown, 08/20/18) PENICILLINS (Verified Allergy, Unknown, 08/20/18) Medication History Scheduled Amitriptyline HCl (Amitriptyline HCl), 50 MG ORAL BEDTIME, (Reported) Calcium Carbonate (Calcium), 10,000 MG PO DAILY, (Reported) Chlordiazepoxide Hcl* (Librium*), 10 MG ORAL THREE TIMES A DAY Duloxetine Hcl* (Cymbalta*), 90 MG ORAL DAILY, (Reported) Gabapentin* (Gabapentin*), 1,200 MG ORAL BID, (Reported) Mag Hydrox/Al Hydrox/Simeth (Maalox Maximum Strength Susp), 30 ML PO Q6HR Naltrexone Hcl (Naltrexone Hcl), 50 MG PO DAILY, (Reported) Omeprazole Magnesium (Prilosec Otc), 20 MG ORAL DAILY Ondansetron Odt* (Zofran Odt*), 4 MG BC EVERY 8 HOURS Thiamine Hcl* (Vitamin B-1*), 100 MG ORAL DAILY, (Reported) Trazodone* (Trazodone*), 225 MG ORAL BEDTIME, (Reported) Vitamin D (Vitamin D3), 5,000 UNITS ORAL DAILY, (Reported) Patient History History Provided By: Patient, Medical Record, PMD Healthcare decision maker Resuscitation status Full Code Advanced Directive on File Review of Systems Review of Symptoms General ROS: no weight loss or fever Psychological ROS: no depression or mood changes, no memory loss Ophthalmic ROS: no visual changes or eye irritation ENT ROS: no nasal congestion, hearing loss, dizziness Allergy and Immunology ROS: no allergic symptoms or urticaria Hematological and Lymphatic ROS: no swollen glands, unusual bleeding or bruising Endocrine ROS: no polyuria, polydipsia, weight changes, temperature intolerance Respiratory ROS: no cough, shortness of breath, or wheezing Cardiovascular ROS: no chest pain or dyspnea on exertion Gastrointestinal ROS: denies abdominal pain, no bright red blood in stool. Musculoskeletal ROS: no myalgias or arthralgias Neurological ROS: no TIA or stroke symptoms Dermatological ROS: no new or changing skin lesions, rashes or pruritis Physical Exam Physical Exam General appearance: alert, cooperative, no distress, appears stated age Head: Normocephalic, without obvious abnormality, atraumatic Eyes: conjunctivae/corneas clear. PERRL, EOM's intact. Fundi benign Throat: Lips, mucosa, and tongue normal. Teeth and gums normal Neck: supple, symmetrical, trachea midline, no adenopathy, thyroid: not enlarged, symmetric, no tenderness/mass/nodules, no carotid bruit and no JVD Lungs: clear to auscultation bilaterally Heart: regular rate and rhythm, S1, S2 normal, no murmur, click, rub or gallop Abdomen: soft, non-tender. Bowel sounds normal. No masses, no organomegaly Extremities: extremities normal, atraumatic, no cyanosis or edema Pulses: 2+ and symmetric Skin: Skin color, texture, turgor normal. No rashes or lesions Neurologic: Grossly normal Last 24 Hour Vital Signs Date Time Temp Pulse Resp B/P (MAP) Pulse Ox O2 Delivery O2 Flow Rate FiO2 12/20/18 17:23 Room Air 12/20/18 16:00 Room Air 12/20/18 16:00 114 12/20/18 16:00 98.2 111 14 131/86 (101) 97 12/20/18 12:56 119 12/20/18 12:00 Room Air 12/20/18 12:00 98.2 118 24 151/104 (120) 96 12/20/18 09:50 131 12/20/18 09:49 132 12/20/18 08:00 Room Air 12/20/18 07:50 Room Air 12/20/18 07:00 98.7 131 28 158/98 (118) 99 12/20/18 06:40 98.6 105 22 145/85 98 Room Air 12/20/18 05:40 98.6 106 22 148/98 100 Room Air 12/20/18 03:40 98.6 106 22 148/98 100 Room Air 12/20/18 01:40 98.6 125 22 145/111 100 Room Air 12/20/18 01:22 98.1 136 18 88/51 (63) 97 Room Air Intake and Output 12/19/18 12/20/18 18:59 06:59 Output Total 350 ml Balance -350 ml Emesis 350 ml Laboratory Tests Test 12/20/18 01:30 12/20/18 03:30 12/20/18 03:40 12/20/18 09:15 White Blood Count 31.6 K/UL (4.8-10.8) *H 21.0 K/UL (4.8-10.8) H Red Blood Count 5.40 M/UL (4.70-6.10) 4.26 M/UL (4.70-6.10) L Hemoglobin 17.9 G/DL (14.2-18.0) 14.7 G/DL (14.2-18.0) Hematocrit 54.0 % (42.0-52.0) H 42.1 % (42.0-52.0) Mean Corpuscular Volume 100 FL (80-99) H 99 FL (80-99) Mean Corpuscular Hemoglobin 33.1 PG (27.0-31.0) H 34.4 PG (27.0-31.0) H Mean Corpuscular Hemoglobin Concent 33.1 G/DL (32.0-36.0) 34.9 G/DL (32.0-36.0) Red Cell Distribution Width 13.6 % (11.6-14.8) 13.3 % (11.6-14.8) Platelet Count 368 K/UL (150-450) 215 K/UL (150-450) Mean Platelet Volume 6.9 FL (6.5-10.1) 6.7 FL (6.5-10.1) Neutrophils (%) (Auto) % (45.0-75.0) % (45.0-75.0) Lymphocytes (%) (Auto) % (20.0-45.0) % (20.0-45.0) Monocytes (%) (Auto) % (1.0-10.0) % (1.0-10.0) Eosinophils (%) (Auto) % (0.0-3.0) % (0.0-3.0) Basophils (%) (Auto) % (0.0-2.0) % (0.0-2.0) Differential Total Cells Counted 100 100 Neutrophils % (Manual) 79 % (45-75) H 81 % (45-75) H Lymphocytes % (Manual) 11 % (20-45) L 10 % (20-45) L Monocytes % (Manual) 10 % (1-10) 6 % (1-10) Eosinophils % (Manual) 0 % (0-3) 0 % (0-3) Basophils % (Manual) 0 % (0-2) 3 % (0-2) H Band Neutrophils 0 % (0-8) 0 % (0-8) Platelet Estimate Adequate Adequate Platelet Morphology Normal Normal Red Blood Cell Morphology Normal Normal Sodium Level 143 MMOL/L (136-145) 135 MMOL/L (136-145) L Potassium Level 4.7 MMOL/L (3.5-5.1) 4.8 MMOL/L (3.5-5.1) Chloride Level 98 MMOL/L (98-107) 98 MMOL/L (98-107) Carbon Dioxide Level 12 MMOL/L (21-32) L 16 MMOL/L (21-32) L Anion Gap 33 mmol/L (5-15) H 21 mmol/L (5-15) H Blood Urea Nitrogen 25 mg/dL (7-18) H 19 mg/dL (7-18) H Creatinine 2.1 MG/DL (0.55-1.30) H 1.3 MG/DL (0.55-1.30) Estimat Glomerular Filtration Rate 34.0 mL/min (>60) 59.2 mL/min (>60) Glucose Level 81 MG/DL (74-106) 209 MG/DL (74-106) #H Calcium Level 9.5 MG/DL (8.5-10.1) 8.1 MG/DL (8.5-10.1) L Total Bilirubin 0.5 MG/DL (0.2-1.0) 0.7 MG/DL (0.2-1.0) Aspartate Amino Transf (AST/SGOT) 94 U/L (15-37) H 66 U/L (15-37) H Alanine Aminotransferase (ALT/SGPT) 66 U/L (12-78) 52 U/L (12-78) Alkaline Phosphatase 106 U/L (46-116) 82 U/L (46-116) Troponin I 0.000 ng/mL (0.000-0.056) Total Protein 9.3 G/DL (6.4-8.2) H 7.5 G/DL (6.4-8.2) Albumin 5.2 G/DL (3.4-5.0) H 4.6 G/DL (3.4-5.0) Globulin 4.1 g/dL 2.9 g/dL Albumin/Globulin Ratio 1.3 (1.0-2.7) 1.6 (1.0-2.7) Lipase 45 U/L (73-393) L Salicylates Level 5.1 ug/mL (2.8-20) Acetaminophen Level < 2 MCG/ML (10-30) L Serum Alcohol 196 mg/dL Urine Color Pale yellow Urine Appearance Clear Urine pH 5 (4.5-8.0) Urine Specific [place] 1.025 (1.005-1.035) Urine Protein 2+ (NEGATIVE) H Urine Glucose (UA) Negative (NEGATIVE) Urine Ketones 2+ (NEGATIVE) H Urine Blood 1+ (NEGATIVE) H Urine Nitrite Negative (NEGATIVE) Urine Bilirubin Negative (NEGATIVE) Urine Urobilinogen Normal MG/DL (0.0-1.0) Urine Leukocyte Esterase Negative (NEGATIVE) Urine RBC 0-2 /HPF (0 - 0) H Urine WBC 0 /HPF (0 - 0) Urine Squamous Epithelial Cells None /LPF (NONE/OCC) Urine Bacteria None /HPF (NONE) Prothrombin Time 9.8 SEC (9.30-11.50) Prothromb Time International Ratio 0.9 (0.9-1.1) Activated Partial Thromboplast Time 25 SEC (23-33) Height (Feet): 5 Height (Inches): 8.00 Weight (Pounds): 170 Medications Current Medications Medications (Trade) Dose Ordered Sig/[place] Route PRN Reason Start Time Stop Time Status Last Admin Dose Admin Acetaminophen (Tylenol) 650 mg Q4H PRN ORAL fever 12/20/18 08:30 01/19/19 08:29 12/20/18 10:11 Chlordiazepoxide (Librium) 50 mg EVERY 8 HOURS ORAL 12/20/18 22:00 12/27/18 21:59 Dextrose (Dextrose 50%) 25 ml Q30M PRN IV Hypoglycemia 12/20/18 08:30 01/19/19 08:29 Dextrose (Dextrose 50%) 50 ml Q30M PRN IV Hypoglycemia 12/20/18 08:30 01/19/19 08:29 Dextrose/Sodium Chloride 1,000 ml @ 125 mls/hr Q8H IV 12/20/18 09:00 01/19/19 08:59 12/20/18 16:29 Diphenhydramine HCl (Benadryl) 25 mg Q6H PRN ORAL Itching/Pruritis 12/20/18 08:30 01/19/19 08:29 Folic Acid 1 mg/ Magnesium Sulfate 2000 mg/ Multivitamins 10 ml/Sodium Chloride 1,014.2 ml @ 125 mls/ hr Q24H IV 12/20/18 11:00 01/19/19 10:59 12/20/18 11:04 Gabapentin (Neurontin) 1,200 mg BID ORAL 12/20/18 18:00 01/19/19 17:59 12/20/18 17:20 Heparin Sodium (Porcine) (Heparin 5000 units/ml) 5,000 units EVERY 12 HOURS SUBQ 12/20/18 09:00 01/19/19 08:59 12/20/18 09:08 Metoclopramide HCl (Reglan) 10 mg Q6H PRN IVP severe nausea 12/20/18 08:30 01/19/19 08:29 Morphine Sulfate (Morphine Sulfate) 2 mg Q4H PRN IVP severe Pain (Pain Scale 7-10) 12/20/18 08:30 12/27/18 08:29 Nitroglycerin (Ntg) 0.4 mg Q5M X 3 DOSES PRN SL Prn Chest Pain 12/20/18 08:30 01/19/19 08:29 Ondansetron HCl (Zofran) 8 mg Q6H PRN IVP Nausea & Vomiting 12/20/18 14:30 01/19/19 08:29 Pantoprazole (Protonix) 40 mg DAILY IV 12/20/18 09:00 01/19/19 08:59 12/20/18 08:48 Polyethylene Glycol (Miralax) 17 gm HSPRN PRN ORAL Constipation 12/20/18 08:30 01/19/19 08:29 Promethazine HCl (Phenergan) 25 mg Q6H PRN IM refractory nausea & vomiting 12/20/18 08:45 01/19/19 08:44 Thiamine HCl 100 mg/Dextrose 56 ml @ 112 mls/hr Q24H IVPB 12/20/18 11:00 01/19/19 10:59 12/20/18 11:04 Trazodone HCl (Desyrel) 50 mg BEDTIME ORAL 12/20/18 21:00 01/19/19 20:59 Assessment/Plan Problem List: (1) Acute alcoholic intoxication ICD Codes: F10.929 - Alcohol use, unspecified with intoxication, unspecified SNOMED: 97673806 (2) Gastritis Assessment & Plan: Impression: No definite acute abnormality Equivocal colonic wall thickening, most likely artifact of under distention but could indicate early/mild colitis changes. Correlate with clinical findings Gastric distention. Equivocal mild wall thickening of the gastric antrum and duodenum, could indicate gastritis/duodenitis changes. Correlate with clinical findings Fatty liver Incidental findings as noted, including focal right basilar pleural thickening or scarring, degenerative lumbosacral spondylosis Known EtOH history above CT findings consistent with gastritis currently improved since admission IV fluids hydration renal function improving leukocytosis resolving no surgical intervention planned diet as tolerated will follow with recs needs to stop drinking ICD Codes: K29.70 - Gastritis, unspecified, without bleeding SNOMED: 7435396 (3) Metabolic acidosis ICD Codes: E87.2 - Acidosis SNOMED: 95601305 Dylan See Dec 20, 2018 18:52
[2018-12-20] MEDS ORDERED: CENTRUM COMPLE1 EAC1 PO (19:21)
[2018-12-20] MEDS ORDERED: CALCIUM500 M2 PO (19:21)
--- NOTE | 2018-12-20 19:45 | History and Physical Report ---
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 This is Dr. 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 I am covering him. HISTORY OF PRESENT ILLNESS: The patient is admitted for alcohol intoxication, vomiting, acute renal insufficiency. He was admitted for those reasons. It has been going on for one day. Denies rectal bleeding. Denies hematemesis. Does have some abdominal pain, probably associated abdominal pain. Denies shortness of breath. Denies cough. Denies fever or chills. PAST MEDICAL HISTORY: Significant for alcohol intoxication, GERD, mood disorder. PAST SURGICAL HISTORY: None. SOCIAL HISTORY: History of smoking. History of marijuana use. History of alcohol abuse. ALLERGIES: To penicillin and Keflex. MEDICATIONS: Takes omeprazole, trazodone, gabapentin. FAMILY HISTORY: Noncontributory. REVIEW OF SYSTEMS: HEENT: Denies headaches. RESPIRATORY: Denies shortness of breath. Denies cough. CARDIOVASCULAR: Denies chest pain. No orthopnea. GASTROINTESTINAL: Reports vomiting and abdominal pain for one day. No rectal bleeding. No hematemesis. EXTREMITIES: Denies pain in the lower extremities. CENTRAL NERVOUS SYSTEM: Denies change in vision or speech pattern. PHYSICAL EXAMINATION: VITAL SIGNS: Temperature is 98.2, pulse is 118, blood pressure is 151/104. HEENT: PERRLA. NECK: Supple. No lymphadenopathy. CHEST: Clear to auscultation. CARDIOVASCULAR: Regular rate and rhythm. No murmurs or extra sounds. GASTROINTESTINAL: nontender. No organomegaly. Abdomen is soft. EXTREMITIES: No edema. Moves all four extremities. NEUROLOGIC: Sensory intact to light touch. Reflexes on both sides. Moves all four extremities. LABORATORY DATA: WBC of 31.6, hemoglobin 17.9, platelets 361,000. Sodium 142, potassium 4.7, BUN of 25, creatinine of 3.1, and glucose of 81. ASSESSMENT AND PLAN: Leukocytosis, vomiting, abdominal pain, and acute renal failure. I have asked Dr. Loja, Dr. See, Dr. Randy Armijo, Dr. Montelongo, Dr. Rodríguez to see the patient for management of the above-mentioned problems to help with that. The patient leukocytosis. The patient does not look like he is in any acute distress at this point. Eunice Toro M.D. DR: Jerry JOB#: [id number] CC:
--- NOTE | 2018-12-20 19:52 | NUR ---
HAND-OFF: Report given to Jennifer Colmenares RN. Pt in stable condition.
--- NOTE | 2018-12-20 19:53 | NUR ---
NURSE NOTES: Received patient from DAVID Delarosa. patient is resting in bed, able to follow commands; denies pain at this time. is at bedside at this time. no s/sx of respiratory distress noted at this time. IV sites are patent and intact, running fluids at prescribed rate. bed in lowest position and locked, siderails up X2, call light within reach. will continue to monitor.
--- NOTE | 2018-12-20 20:00 | Consultation ---
DATE OF CONSULTATION: 12/20/2018 HISTORY OF PRESENT ILLNESS: This is a 48-year-old male with a history of anxiety, alcohol dependence, depression who has been admitted to the hospital for alcohol withdrawal. He is presenting with nausea, vomiting, and diarrhea. The patient is tachycardic, has high blood pressure, has anxiety, jittery. No depressive or psychotic symptoms. The patient is on multiple psychotropic medication. He is unaware of the dosage of the medication. He is denying suicidal ideation. The patient stated that he is drinking water on a daily basis usually 1 to 1-1/2 liter a day. The patient stated that yesterday he had more than usual. He is denying any recent stressors. PAST PSYCHIATRIC HISTORY: Anxiety and depression. He is on three different antidepressant including Cymbalta, trazodone, Elavil. PAST MEDICAL HISTORY: Significant for obesity, gastritis. ALLERGIES: Cephalexin and penicillin. SUBSTANCE ABUSE HISTORY: Mainly alcohol. He is denying illicit drug use. MENTAL STATUS EXAMINATION: . The patient is alert and oriented x4. Mood is anxious. Affect is blunted. Congruent with mood. The patient has psychomotor agitation. Thought process is linear and goal oriented. Thought content, no suicidal or homicidal ideation. No delusions. No AVH. Cognition is intact. Insight and judgment is fair. ASSESSMENT: Hudson I Alcohol dependence, alcohol withdrawal, major depressive disorder. Anxiety disorder. Hudson II Deferred. Hudson III As above. Hudson IV Low Hudson V 50 PLAN: 1. We will stop the Elavil. 2. Discontinue the trazodone and start the patient on 100 mg at night. 3. Continue the patient on Cymbalta 90 mg. 4. Discontinue Ativan. 5. Start the patient on Librium 50 mg t.i.d. 6. Continue the thiamine. 7. Continue the folate. Ugo Pak M.D. DR: Kalli JOB#: [id number] CC:
[2018-12-20] MEDS ORDERED: TraZODone 50mg tab ORAL SCH ×2 (21:00)
[2018-12-20] MEDS ORDERED: Amitriptyline 100mg tab ORAL SCH (21:00)
--- NOTE | 2018-12-20 21:40 | NUR ---
TRANSFER TO FLOOR: Patient transferred to med surg, room 408-1. patient is in stable condition. Report given to DAVID Cunningham. Belongings and medications given to DAVID Cunningham. Family and or S/O informed of transfer.
--- NOTE | 2018-12-20 21:47 | NUR ---
NURSE NOTES: Received patient in bed, from [facility] , report is given by Jennifer HERNANDEZ. Patient is awake, alert, oriented x 4, on clear liquid diet, will be NPO post midnight due to procedure in am. On room air, VSS, afebrile, no acute distress noted. Able to verbalize his needs. IV sites intact and clean. Skin is clean dry and intact. Oriented to the room, call light is within reach, bed is in low position, locked and alarm is on. Will continue to monitor for safety and comfort.
--- NOTE | 2018-12-20 23:41 | Consultation ---
History of Present Illness General Date patient seen: Dec 20, 2018 Chief Complaint: AMS/ Alcohol Withdrawal Referring physician: Dr. Aguilera Present Illness HPI Dion Gomez is a 48 year old male with a known hx of alcohol abuse, admitted for alcohol intoxication, vomiting, and acute renal insufficiency. Neurological consultation is requested for him at this time. He is alert, oriented and neurologically intact. He reports that he drinks 2 large bottles of Jorgensen Goose daily and goes into alcohol withdrawal relatively quickly. He denies any hx of prior seizures at this time. Allergies: Coded Allergies: CEPHALEXIN (Verified Allergy, Unknown, 08/20/18) PENICILLINS (Verified Allergy, Unknown, 08/20/18) Medication History Scheduled Amitriptyline HCl (Amitriptyline HCl), 50 MG ORAL BEDTIME, (Reported) Gabapentin* (Gabapentin*), 1,200 MG ORAL BID, (Reported) Naltrexone Hcl (Naltrexone Hcl), 50 MG PO DAILY, (Reported) Thiamine Hcl* (Vitamin B-1*), 100 MG ORAL DAILY, (Reported) Trazodone* (Trazodone*), 225 MG ORAL BEDTIME, (Reported) Vitamin D (Vitamin D3), 5,000 UNITS ORAL DAILY, (Reported) Miscellaneous Medications Calcium Carbonate (Calcium), 1,000 MG PO, (Reported) Multivitamin/Iron/Folic Acid (Centrum Complete Multivit Tab), 1 EACH PO, ( Reported) Discontinued Medications Chlordiazepoxide Hcl* (Librium*), 10 MG ORAL THREE TIMES A DAY Discontinued Reason: Therapy completed Duloxetine Hcl* (Cymbalta*), 90 MG ORAL DAILY, (Reported) Discontinued Reason: Therapy completed Mag Hydrox/Al Hydrox/Simeth (Maalox Maximum Strength Susp), 30 ML PO Q6HR Discontinued Reason: Therapy completed Omeprazole Magnesium (Prilosec Otc), 20 MG ORAL DAILY Discontinued Reason: Therapy completed Ondansetron Odt* (Zofran Odt*), 4 MG BC EVERY 8 HOURS Discontinued Reason: Therapy completed Patient History History Provided By: Patient Healthcare decision maker Resuscitation status Full Code Advanced Directive on File Past Medical/Surgical History Past Medical/Surgical History: (1) ETOH abuse Review of Systems Constitutional: Reports: malaise, weakness; Denies: no symptoms, see HPI, chills, sweats, fever, other Eye: Denies: no symptoms, see HPI, eye pain, blurred vision, tearing, double vision, nose pain, nose congestion, acuity changes, discharge, other ENT: Denies: no symptoms, see HPI, ear pain, ear discharge, nose pain, nose congestion, throat pain, throat swelling, mouth pain, hearing loss, nasal discharge, other Respiratory: Denies: no symptoms, see HPI, cough, orthopnea, shortness of breath, stridor, wheezing, PUGH, sputum, other Cardiovascular: Denies: no symptoms, see HPI, chest pain, edema, palpitations, syncope, PND, other Gastrointestinal: Denies: no symptoms, see HPI, abdominal pain, constipation, diarrhea, nausea, vomiting, melena, hematemesis, other Genitourinary: Denies: no symptoms, see HPI, discharge, dysuria, frequency, hematuria, pain, retention, incontinence, urgency, vag bleed/dc, other Musculoskeletal: Denies: no symptoms, see HPI, back pain, gout, joint pain, joint swelling, muscle pain, muscle stiffness, other Skin: Denies: no symptoms, see HPI, rash, change in color, change in hair/nails , dryness, lesions, other Psychiatric: Reports: see HPI, other; Denies: no symptoms, prior hx, anxiety, depressed feelings, emotional problems, SI, HI, hallucinations Neurological: Denies: no symptoms, see HPI, headache, numbness, paresthesia, seizure, tingling, tremors, focal weakness, syncope, dizziness, other Endocrine: Denies: no symptoms, see HPI, excessive sweating, flushing, intolerance to temperature, increased thirst, increased urine, unexplained weight loss, other Hematologic/Lymphatic: Denies: no symptoms, see HPI, anemia, blood clots, easy bleeding, easy bruising, swollen glands, diathesis, other Physical Exam General Appearance: WD/WN, alert, mild distress, alert oriented x3 Lines, tubes and drains: peripheral HEENT: normocephalic, atraumatic, anicteric, mucous membranes moist, PERRL, EOMI, pharynx normal, supple, no JVD Neck: non-tender, normal inspection Respiratory/Chest: no respiratory distress, no accessory muscle use Cardiovascular/Chest: normal peripheral pulses, no JVD Extremities: normal range of motion, non-tender, normal inspection, no calf tenderness, normal capillary refill, no edema, no cyanosis Skin Exam: normal pigmentation, warm/dry Neurologic: taffy candy maker II-XII grossly normal, no motor/sensory deficits, alert, oriented x 3, responsive, depressed affect Musculoskeletal: normal muscle bulk, no effusion Last 24 Hour Vital Signs Date Time Temp Pulse Resp B/P (MAP) Pulse Ox O2 Delivery O2 Flow Rate FiO2 12/20/18 21:58 97.7 103 24 134/87 (103) 12/20/18 20:15 114 12/20/18 20:00 Room Air 12/20/18 20:00 98.9 105 14 134/84 (101) 97 12/20/18 17:23 Room Air 12/20/18 16:00 Room Air 12/20/18 16:00 114 12/20/18 16:00 98.2 111 14 131/86 (101) 97 12/20/18 12:56 119 12/20/18 12:00 Room Air 12/20/18 12:00 98.2 118 24 151/104 (120) 96 12/20/18 09:50 131 12/20/18 09:49 132 12/20/18 08:00 Room Air 12/20/18 07:50 Room Air 12/20/18 07:00 98.7 131 28 158/98 (118) 99 12/20/18 06:40 98.6 105 22 145/85 98 Room Air 12/20/18 05:40 98.6 106 22 148/98 100 Room Air 12/20/18 03:40 98.6 106 22 148/98 100 Room Air 12/20/18 01:40 98.6 125 22 145/111 100 Room Air 12/20/18 01:22 98.1 136 18 88/51 (63) 97 Room Air Intake and Output 12/19/18 12/20/18 18:59 06:59 Output Total 350 ml Balance -350 ml Emesis 350 ml Laboratory Tests Test 12/20/18 01:30 12/20/18 03:30 12/20/18 03:40 12/20/18 09:15 White Blood Count 31.6 K/UL (4.8-10.8) *H 21.0 K/UL (4.8-10.8) H Red Blood Count 5.40 M/UL (4.70-6.10) 4.26 M/UL (4.70-6.10) L Hemoglobin 17.9 G/DL (14.2-18.0) 14.7 G/DL (14.2-18.0) Hematocrit 54.0 % (42.0-52.0) H 42.1 % (42.0-52.0) Mean Corpuscular Volume 100 FL (80-99) H 99 FL (80-99) Mean Corpuscular Hemoglobin 33.1 PG (27.0-31.0) H 34.4 PG (27.0-31.0) H Mean Corpuscular Hemoglobin Concent 33.1 G/DL (32.0-36.0) 34.9 G/DL (32.0-36.0) Red Cell Distribution Width 13.6 % (11.6-14.8) 13.3 % (11.6-14.8) Platelet Count 368 K/UL (150-450) 215 K/UL (150-450) Mean Platelet Volume 6.9 FL (6.5-10.1) 6.7 FL (6.5-10.1) Neutrophils (%) (Auto) % (45.0-75.0) % (45.0-75.0) Lymphocytes (%) (Auto) % (20.0-45.0) % (20.0-45.0) Monocytes (%) (Auto) % (1.0-10.0) % (1.0-10.0) Eosinophils (%) (Auto) % (0.0-3.0) % (0.0-3.0) Basophils (%) (Auto) % (0.0-2.0) % (0.0-2.0) Differential Total Cells Counted 100 100 Neutrophils % (Manual) 79 % (45-75) H 81 % (45-75) H Lymphocytes % (Manual) 11 % (20-45) L 10 % (20-45) L Monocytes % (Manual) 10 % (1-10) 6 % (1-10) Eosinophils % (Manual) 0 % (0-3) 0 % (0-3) Basophils % (Manual) 0 % (0-2) 3 % (0-2) H Band Neutrophils 0 % (0-8) 0 % (0-8) Platelet Estimate Adequate Adequate Platelet Morphology Normal Normal Red Blood Cell Morphology Normal Normal Sodium Level 143 MMOL/L (136-145) 135 MMOL/L (136-145) L Potassium Level 4.7 MMOL/L (3.5-5.1) 4.8 MMOL/L (3.5-5.1) Chloride Level 98 MMOL/L (98-107) 98 MMOL/L (98-107) Carbon Dioxide Level 12 MMOL/L (21-32) L 16 MMOL/L (21-32) L Anion Gap 33 mmol/L (5-15) H 21 mmol/L (5-15) H Blood Urea Nitrogen 25 mg/dL (7-18) H 19 mg/dL (7-18) H Creatinine 2.1 MG/DL (0.55-1.30) H 1.3 MG/DL (0.55-1.30) Estimat Glomerular Filtration Rate 34.0 mL/min (>60) 59.2 mL/min (>60) Glucose Level 81 MG/DL (74-106) 209 MG/DL (74-106) #H Calcium Level 9.5 MG/DL (8.5-10.1) 8.1 MG/DL (8.5-10.1) L Total Bilirubin 0.5 MG/DL (0.2-1.0) 0.7 MG/DL (0.2-1.0) Aspartate Amino Transf (AST/SGOT) 94 U/L (15-37) H 66 U/L (15-37) H Alanine Aminotransferase (ALT/SGPT) 66 U/L (12-78) 52 U/L (12-78) Alkaline Phosphatase 106 U/L (46-116) 82 U/L (46-116) Troponin I 0.000 ng/mL (0.000-0.056) Total Protein 9.3 G/DL (6.4-8.2) H 7.5 G/DL (6.4-8.2) Albumin 5.2 G/DL (3.4-5.0) H 4.6 G/DL (3.4-5.0) Globulin 4.1 g/dL 2.9 g/dL Albumin/Globulin Ratio 1.3 (1.0-2.7) 1.6 (1.0-2.7) Lipase 45 U/L (73-393) L Salicylates Level 5.1 ug/mL (2.8-20) Acetaminophen Level < 2 MCG/ML (10-30) L Serum Alcohol 196 mg/dL Urine Color Pale yellow Urine Appearance Clear Urine pH 5 (4.5-8.0) Urine Specific [place] 1.025 (1.005-1.035) Urine Protein 2+ (NEGATIVE) H Urine Glucose (UA) Negative (NEGATIVE) Urine Ketones 2+ (NEGATIVE) H Urine Blood 1+ (NEGATIVE) H Urine Nitrite Negative (NEGATIVE) Urine Bilirubin Negative (NEGATIVE) Urine Urobilinogen Normal MG/DL (0.0-1.0) Urine Leukocyte Esterase Negative (NEGATIVE) Urine RBC 0-2 /HPF (0 - 0) H Urine WBC 0 /HPF (0 - 0) Urine Squamous Epithelial Cells None /LPF (NONE/OCC) Urine Bacteria None /HPF (NONE) Prothrombin Time 9.8 SEC (9.30-11.50) Prothromb Time International Ratio 0.9 (0.9-1.1) Activated Partial Thromboplast Time 25 SEC (23-33) Height (Feet): 5 Height (Inches): 8.00 Weight (Pounds): 170 Medications Current Medications Medications (Trade) Dose Ordered Sig/[place] Route PRN Reason Start Time Stop Time Status Last Admin Dose Admin Acetaminophen (Tylenol) 650 mg Q4H PRN ORAL fever 12/20/18 21:36 01/19/19 21:35 Chlordiazepoxide (Librium) 50 mg EVERY 8 HOURS ORAL 12/20/18 22:00 12/27/18 21:59 12/20/18 22:06 Dextrose (Dextrose 50%) 25 ml Q30M PRN IV Hypoglycemia 12/20/18 22:00 01/19/19 08:29 Dextrose (Dextrose 50%) 50 ml Q30M PRN IV Hypoglycemia 12/20/18 22:00 01/19/19 08:29 Dextrose/Sodium Chloride 1,000 ml @ 125 mls/hr Q8H IV 12/20/18 21:38 01/19/19 21:37 Diphenhydramine HCl (Benadryl) 25 mg Q6H PRN ORAL Itching/Pruritis 12/20/18 21:36 01/19/19 21:35 Folic Acid 1 mg/ Magnesium Sulfate 2000 mg/ Multivitamins 10 ml/Sodium Chloride 1,014.2 ml @ 125 mls/ hr Q24H IV 12/21/18 11:00 01/19/19 10:59 Gabapentin (Neurontin) 1,200 mg BID ORAL 12/21/18 09:00 01/19/19 17:59 Heparin Sodium (Porcine) (Heparin 5000 units/ml) 5,000 units EVERY 12 HOURS SUBQ 12/21/18 09:00 01/19/19 08:59 Metoclopramide HCl (Reglan) 10 mg Q6H PRN IVP severe nausea 12/20/18 21:36 01/19/19 21:35 Morphine Sulfate (Morphine Sulfate) 2 mg Q4H PRN IVP severe Pain (Pain Scale 7-10) 12/20/18 21:36 12/27/18 21:35 Nitroglycerin (Ntg) 0.4 mg Q5M X 3 DOSES PRN SL Prn Chest Pain 12/20/18 21:45 01/19/19 08:29 Ondansetron HCl (Zofran) 8 mg Q6H PRN IVP Nausea & Vomiting 12/20/18 21:37 01/19/19 21:36 Pantoprazole (Protonix) 40 mg DAILY IV 12/21/18 09:00 01/19/19 08:59 Polyethylene Glycol (Miralax) 17 gm HSPRN PRN ORAL Constipation 12/20/18 21:37 01/19/19 21:36 Promethazine HCl (Phenergan) 25 mg Q6H PRN IM refractory nausea & vomiting 12/20/18 21:37 01/19/19 21:36 Thiamine HCl 100 mg/Dextrose 56 ml @ 112 mls/hr Q24H IVPB 12/21/18 11:00 01/19/19 10:59 Trazodone HCl (Desyrel) 50 mg BEDTIME ORAL 12/21/18 21:00 01/19/19 20:59 Assessment/Plan Problem List: (1) Alcohol withdrawal syndrome ICD Codes: F10.239 - Alcohol dependence with withdrawal, unspecified SNOMED: 108090408 (2) Labile blood pressure ICD Codes: R09.89 - Other specified symptoms and signs involving the circulatory and respiratory systems SNOMED: 452105998 (3) Acute alcoholic intoxication ICD Codes: F10.929 - Alcohol use, unspecified with intoxication, unspecified SNOMED: 36587409 (4) Gastritis ICD Codes: K29.70 - Gastritis, unspecified, without bleeding SNOMED: 2184236 (5) Metabolic acidosis ICD Codes: E87.2 - Acidosis SNOMED: 00760357 (6) ETOH abuse ICD Codes: F10.10 - Alcohol abuse, uncomplicated SNOMED: 41963119 Status: not improved Assessment/Plan: At high risk of acute alcohol withdrawal given heavy baseline use. Continue regular neuro observations Q4 with assessment for withdrawal using CIWA scale 1mg Ativan PRN Q 4 hrs for signs of withdrawal when CIWA score > 8 Maintain SBP 90-140 Give IV fluid "Banana Bag and transition patient to oral Folate and Thiamine supplements with diet Recommend Psych for discussion regarding Alcohol Cessation- rehabilitation- additional psychosocial factors Tammy Medina N.P. Dec 20, 2018 23:41
[2018-12-21] VITALS: BP 126/68
[2018-12-21] MEDS ORDERED: LORazepam Inj 2mg/ml 1ml IV PRN (02:15)
[2018-12-21 04:00] VITALS: BP 140/98
[2018-12-21] MEDS: D5 1/2NS 1,000 ML IV SCH (05:30)
[2018-12-21] MEDS ORDERED: Tubing IV Secondary IV ONE (05:59)
[2018-12-21] MEDS ORDERED: NS 275ml ONE (05:59)
[2018-12-21] MEDS ORDERED: D5 1/2NS 1000ml IV ONE (05:59)
--- NOTE | 2018-12-21 06:20 | NUR ---
NURSE NOTES: Patient left AMA, signed the form, accompanied by his . MD was made aware.
[2018-12-21] MEDS ORDERED: Pantoprazole Inj IV SCH (09:00)
[2018-12-21] MEDS ORDERED: Heparin 5000 units/ml inj SUBQ SCH (09:00)
[2018-12-21] MEDS ORDERED: Thiamine HCl 100 MG in D5W 55 ML IVPB SCH (11:00)
[2018-12-21] MEDS ORDERED: Folic Acid 1 MG, Magnesium Sulfate 2,000 MG, Multivitamin - 12 Injection 10 ML in Sodiu... IV SCH (11:00)
--- NOTE | 2018-12-21 18:00 | Progress Note ---
DATE: 12/21/2018 SUBJECTIVE: The patient is doing well. No behavior issues. Compliant with medication. The patient is benefitting from inpatient drug rehab. The patient is still having withdrawal symptoms. MENTAL STATUS EXAMINATION: Alert and oriented to times self, place, and situation. Mood is dysphoric. Affect is constricted, congruent with mood. Thought process, concrete. Thought content, no suicidal or homicidal ideation. ASSESSMENT: Alcohol dependence, alcohol withdrawal. PLAN: The patient is not an imminent danger to self or others. I recommend drug rehabilitation. Ugo Pak M.D. DR: MARGE JOB#: [id number] CC:
[2018-12-21] MEDS ORDERED: TraZODone 50mg tab ORAL SCH (21:00)
--- NOTE | 2018-12-22 09:33 | Discharge Summary ---
Discharge Summary Discharge Summary _ DATE OF ADMISSION: 12/20/2018 DATE OF DISCHARGE: 12/21/2018 CONSULTANTS: Dr. Ugo Montelongo [facility]RSE: Patient is a 48-year-old male, who was brought in by EMS after increased nausea and vomiting. Patient has history of alcohol abuse. He recently had heavy alcohol intake. He reported multiple episodes of increased nausea and vomiting. He reported last alcohol intake was 1 hour prior to arrival. He has medical history significant for hypertension, asthma and cardiac disease. On evaluation at the ED, blood pressure was 88/51, heart rate was elevated to 136. Blood work showed markedly elevated WBC to 31. He was given IV hydration. BMP showed CO2 12, anion gap of 33, BUN 25 and creatinine elevated to 2.1. Troponin was negative. AST was elevated to 94. ALT and lipase were normal. Urine toxicology screen was positive for marijuana. Blood alcohol level was 196. He was given Zofran and Pepcid for symptomatic treatment. He was given IV magnesium due to QT prolongation seen on EKG. He was then admitted for evaluation of leukocytosis, vomiting, abdominal pain, acute renal failure and alcohol intoxication. He was initially placed on n.p.o. He was given IV hydration and banana bag. He was given Librium, folic acid and thiamine. He was continued on Zofran as needed. He was counseled on alcohol cessation. He was seen by GI. Diet was advanced to clear liquids. CT of the abdomen and pelvis did not show any acute definite abnormality. There was fatty liver and noted gastric distention and equivocal mild wall thickening of the gastric antrum and duodenum. Surgical evaluation was done. There was no surgical intervention planned. ID was consulted. Patient had leukocytosis due to systemic inflammatory response syndrome. He was observed off antibiotics. Patient was high risk for acute alcohol withdrawal. He was placed on regular neurochecks. Neurologist was consulted. Psychiatric evaluation was done. Patient had alcohol dependence and alcohol withdrawal. He was diagnosed with major depressive disorder. Elavil was discontinued. He was given trazodone q hs. Kidney function improved with IV hydration. Full treatment was not carried out as patient left against medical advise. FINAL DIAGNOSES: Acute alcoholic intoxication Alcohol withdrawal Alcohol dependence/EtOH abuse Metabolic acidosis Gastritis DISPOSITION: Patient left against medical advise. I have been assigned to complete a discharge summary on this account, I was not involved with the patient's management.--VADIM Chandra Jacqueline Robles NP Dec 22, 2018 09:33
== END 2018-12-21 06:00 | disposition left against medical advice (07) | DRG 894 ==
LOC: EDBD 01:21 → EDUNIT# 01:21 → EMR 01:59 → 2W 02:41 → EDBEDREQ 05:45 → 4E 21:30
DX: F10.239 Alcohol dependence with withdrawal, unspecified (principal); R65.11 Systemic inflammatory response syndrome (SIRS) of non-infectious origin with acute organ dysfunction; E87.2 Acidosis; N17.9 Acute kidney failure, unspecified; F10.229 Alcohol dependence with intoxication, unspecified; K29.70 Gastritis, unspecified, without bleeding; Z88.1 Allergy status to other antibiotic agents; Z88.0 Allergy status to penicillin; Z87.891 Personal history of nicotine dependence; K76.0 Fatty (change of) liver, not elsewhere classified; F32.9 Major depressive disorder, single episode, unspecified; F41.9 Anxiety disorder, unspecified
CPT/HCPCS: 36415; 71045; 74176; 80053; 80329; 81003; 83690; 84484; 85007; 85025; 85610; 85730; 87081; 93005; 96361; 96365; 96375; 99285; J2405

== ENCOUNTER 2019-01-07 20:55 | Inpatient (IN) | payer BC ==
[~2019-01-07] VITALS: Ht 175.3 cm; Wt 74.8 kg
[~2019-01-07 20:55] MED LIST changes: +CALCIUM500 M2 PO; +CENTRUM COMPLE1 EAC1 PO
--- NOTE | 2019-01-07 21:04 | Emergency Room Report ---
History of Present Illness General Chief Complaint: Abdominal Pain Source: Patient, Medical Record Present Illness HPI Is a 48-year-old male who is an alcoholic. He presents with chief complaint abdominal pain. Onset just prior to arrival. Pain is diffuse in nature. Similar symptom in the past. Also very anxious and said he needs oxygen. Pain is sharp and crampy in nature. Has nausea and vomiting. No diarrhea. Last drink was an hour ago. Denies any trauma. No diarrhea. Allergies: Coded Allergies: CEPHALEXIN (Verified Allergy, Unknown, 08/20/18) PENICILLINS (Verified Allergy, Unknown, 08/20/18) Patient History Past Medical History: see triage record, old chart reviewed Past Surgical History: none Pertinent Family History: none Social History: Reports: alcohol use Immunizations: other Reviewed Nursing Documentation: PMH: Agreed; PSxH: Agreed Nursing Documentation-PMH Hx Cardiac Problems: Yes Hx Hypertension: Yes Hx Asthma: Yes Hx Cancer: No Hx Gastrointestinal Problems: Yes History Of Psychiatric Problem: Yes - ANXIETM DEPRESSION ALCOHOLISM Hx Neurological Problems: No Review of Systems Eye: Denies: eye pain, blurred vision ENT: Denies: ear pain, nose congestion, throat swelling Respiratory: Denies: cough, shortness of breath Cardiovascular: Denies: chest pain, palpitations Gastrointestinal: Reports: abdominal pain, nausea, vomiting; Denies: diarrhea Musculoskeletal: Denies: back pain, joint pain Skin: Denies: rash Neurological: Denies: headache, numbness Endocrine: Denies: increased thirst, increased urine Hematologic/Lymphatic: Denies: easy bruising All Other Systems: negative except mentioned in HPI Physical Exam Vital Signs Date Time Temp Pulse Resp B/P (MAP) Pulse Ox O2 Delivery O2 Flow Rate FiO2 01/07/19 20:55 136 19 113/66 (82) 100 Room Air Vitals with tachycardia Sp02 EP Interpretation: reviewed, normal General Appearance: well appearing, no apparent distress, alert Head: normocephalic, atraumatic Eyes: bilateral eye PERRL, bilateral eye EOMI ENT: hearing grossly normal, normal pharynx Neck: full range of motion, supple, no meningismus Respiratory: chest non-tender, lungs clear, normal breath sounds Cardiovascular #1: regular rate, rhythm, no murmur, tachycardia Gastrointestinal: normal bowel sounds, no mass, no organomegaly, no bruit, non- distended, tenderness - Diffuse Musculoskeletal: back normal, gait/station normal, normal range of motion Psychiatric: mood/affect normal Procedures Critical Care Time Critical Care Time Critical care is mandated in this patient who presented with severe metabolic acidosis from alcohol. Patient require my urgent intervention to attenuate the risks of metabolic collapse which may lead to cardiovascular collapse and . Critical care time is 35 minutes excluding any reportable procedure. Critical care time included evaluation, multiple reevaluation, looking at old charts, interpreting laboratory and diagnostic data, discussing case with patient and family and consultants, and charting. Medical Decision Making Diagnostic Impression: Primary Impression: Alcoholic ketoacidosis Additional Impressions: Acute alcoholic intoxication Qualified Codes: F10.920 - Alcohol use, unspecified with intoxication, uncomplicated Alcohol withdrawal syndrome Qualified Codes: F10.230 - Alcohol dependence with withdrawal, uncomplicated Anxiety Intractable vomiting with nausea Qualified Codes: R11.2 - Nausea with vomiting, unspecified ER Course Patient presents with alcohol intoxication and withdrawal symptoms also. He has severe acidosis secondary to alcohol. He received multiple doses of IV fluid and Ativan. Librium also given. Heart rate improved but still tachycardic. No evidence of acute abdomen. He was recently admitted here couple weeks ago and had normal CT scan. Will admit for IV fluids and Ativan for withdrawal. I contacted Dr. Llanos for admission. EKG Diagnostic Results Rate: normal, tachycardiac Rhythm: NSR ST Segments: no acute changes Rhythm Strip Diag. Results Rate: 121 Rhythm: NSR, no PVC's, no ectopy Last Vital Signs Date Time Temp Pulse Resp B/P (MAP) Pulse Ox O2 Delivery O2 Flow Rate FiO2 01/07/19 20:55 136 19 113/66 (82) 100 Room Air Status: improved Disposition: ADMITTED INPATIENT Condition: Serious Rivera Sullivan MD Jan 07, 2019 21:04
[2019-01-07] MEDS ORDERED: LORazepam Inj 2mg/ml 1ml IV ONE ×2 (21:15→22:15)
--- NOTE | 2019-01-07 21:15 | NUR ---
ED Nurse Note: Recieved pt from home with c/o etoh abuse and increased anxiety with nausea and vomiting and abdominal pain, pt is awake, alert and very anxious and restless, pt is yelling and shouting for staff asking to make him better, pt will not sit still, pt gowned and immediately palced iv line and labs drawn, pt placed on cardiac monitoring with increased heart rate, pt denies chest pain, no sob or labored breathing noted, will continue to clsoely montior and resume care as ordered.
[2019-01-07 21:45] LABS: HEMATOCRIT 47.7 % (42.0-52.0); HEMOGLOBIN 16.1 G/DL (14.2-18.0); MEAN CORPUSCULAR VOLUME 100 FL (80-99); PLATELET COUNT 309 K/UL (150-450); RED BLOOD COUNT 4.79 M/UL (4.70-6.10); RED CELL DISTRIBUTION WIDTH 14.9 % (11.6-14.8)
[2019-01-07 21:56] LABS: ANION GAP 35 mmol/L (5-15); BLOOD UREA NITROGEN 19 mg/dL (7-18); CALCIUM 9.1 MG/DL (8.5-10.1); CARBON DIOXIDE 12 MMOL/L (21-32); CHLORIDE 93 MMOL/L (98-107); CREATININE 1.8 MG/DL (0.55-1.30); POTASSIUM 3.3 MMOL/L (3.5-5.1); SODIUM 140 MMOL/L (136-145)
[2019-01-07 22:01] LABS: ALANINE AMINOTRANSFERASE 48 U/L (12-78); ALBUMIN 4.8 G/DL (3.4-5.0); ALBUMIN/GLOBULIN RATIO 1.5 (1.0-2.7); ALKALINE PHOSPHATASE 100 U/L (46-116); ASPARTATE AMINO TRANSFERASE 82 U/L (15-37); BILIRUBIN,TOTAL 0.7 MG/DL (0.2-1.0)
[2019-01-07 23:00] VITALS: BP 146/102
--- NOTE | 2019-01-07 23:30 | NUR ---
ED Nurse Note: Pt continues to be very agitatted and restless, pt at bedside, tp constantly screaming and yelling for water while vomiting also, pt is non-cooperative and requires very frequent re-directions, pt heart rate remains very elevated at 130's, pt iv site intact after re-starting due to pt constnatly moving and getting out of bed, pt also giving water and food so pt is constantly vomiting, md came to bedside and informed of not givine water, pt remains on monitoring, will continue to closely monitor.
[2019-01-08] VITALS (7 sets, daily range): BP systolic 125–161; BP diastolic 74–104
[2019-01-08] MEDS ORDERED: chlordiazePOXIDE 25mg Cap ORAL ONE (00:30)
[2019-01-08] MEDS ORDERED: LORazepam Inj 2mg/ml 1ml IV ONE ×2 (00:30→02:30)
[2019-01-08 01:05] LABS: ANION GAP 32 mmol/L (5-15); BLOOD UREA NITROGEN 19 mg/dL (7-18); CARBON DIOXIDE 12 MMOL/L (21-32); CHLORIDE 97 MMOL/L (98-107); CREATININE 1.5 MG/DL (0.55-1.30); POTASSIUM 3.5 MMOL/L (3.5-5.1); SODIUM 141 MMOL/L (136-145)
[2019-01-08] MEDS ORDERED: Promethazine HCl 50 MG in NS 110 ML IVPB ONE (01:15)
--- NOTE | 2019-01-08 01:15 | NUR ---
ED Nurse Note: pt continues to be very agitated and restless, also having intermittent emesis of water,liquid, large amounts, pt continues to drink and ea at bedside when asked not to, iv site re-placed due to pt moving about, v/s stable, no cp, no sob, pt being medicated with many anti-anxiety and anti-emetic meds, none are effective, md is aware, pt waiting for room for admission, pt going home, will continue to closely monitor while waiting for room placement.
[2019-01-08] MEDS ORDERED: fentaNYL 100 mcg/2 mL IV ONE (01:30)
--- NOTE | 2019-01-08 02:32 | NUR ---
NURSE NOTES: Received report from DAVID Pro via phone. Called and left a message with Dr. Llanos regarding admission orders. Awaiting call back.
--- NOTE | 2019-01-08 02:35 | NUR ---
ED Nurse Note: pt being taken to floor unit for admission, report called to mary kate bates on unit, pt remains agitated and restless, pt is being medicted with ativan x 5, not effective, iv sites x 2 intact and patent, pt denies cp but remains with abdominal pain, no sob or albored breathing, belongings list completed, pt being taken to floor unit via gurney and acls protocols with rn and er-tech.
--- NOTE | 2019-01-08 05:13 | NUR ---
NURSE NOTES: Dr. Joe called with the following orders: - Nicotene patch - urinalysis - CXR - continue home meds - reg diet - full code - NS @ 100/hr - CBC CMP Lactic Acid, Serum Alcohol - Ativan 2 mg Q 4HR IV PRN Will input orders and will continue to monitor.
[2019-01-08] MEDS ORDERED: LORazepam Inj 2mg/ml 1ml IV PRN ×2 (05:30→20:30)
[2019-01-08 06:48] LABS: APPEARANCE,URINE CLEAR; BILIRUBIN, URINE NEGATIVE (NEGATIVE); COLOR,URINE PALE YELLOW; GLUCOSE, URINE (UA) NEGATIVE (NEGATIVE); KETONES,URINE 4+ (NEGATIVE); LEUKOCYTE ESTERASE ,URINE NEGATIVE (NEGATIVE); NITRITE,URINE NEGATIVE (NEGATIVE); PH,URINE 5 (4.5-8.0); PROTEIN,URINE 1+ (NEGATIVE); UROBILINOGEN,URINE NORMAL MG/DL (0.0-1.0)
--- NOTE | 2019-01-08 07:24 | NUR ---
HAND-OFF: Report given to DAVID Mansfield. Pt stable.
--- NOTE | 2019-01-08 07:31 | NUR ---
NURSE NOTES: Received report from Georgia Todd. Patient awake in bed and bedside. all safety precautions maintained. patient refused Am labs and CXR stated "its all about the money. Junie had a couple of those in the last 6 months already". Will notify .
--- NOTE | 2019-01-08 07:56 | Consultation ---
History of Present Illness General Date patient seen: Jan 08, 2019 Chief Complaint: Abdominal Pain Present Illness HPI 48-year-old male with hx of alcohol abuse, and recurrent admissions for EtoH intoxication presented to ER with chief complaint of abdominal pain. Pain is diffuse in nature. Also very anxious and said he needs oxygen. Has nausea and vomiting. No diarrhea. His ETOH level was more than 200. He is admitted to telemetry because of sinus tachycardia. Allergies: Coded Allergies: CEPHALEXIN (Verified Allergy, Unknown, 08/20/18) PENICILLINS (Verified Allergy, Unknown, 08/20/18) Medication History Scheduled Amitriptyline HCl (Amitriptyline HCl), 50 MG ORAL BEDTIME, (Reported) Gabapentin* (Gabapentin*), 1,200 MG ORAL BID, (Reported) Naltrexone Hcl (Naltrexone Hcl), 50 MG PO DAILY, (Reported) Thiamine Hcl* (Vitamin B-1*), 100 MG ORAL DAILY, (Reported) Trazodone* (Trazodone*), 225 MG ORAL BEDTIME, (Reported) Vitamin D (Vitamin D3), 5,000 UNITS ORAL DAILY, (Reported) Miscellaneous Medications Calcium Carbonate (Calcium), 1,000 MG PO, (Reported) Multivitamin/Iron/Folic Acid (Centrum Complete Multivit Tab), 1 EACH PO, ( Reported) Patient History Healthcare decision maker Resuscitation status Full Code Advanced Directive on File Past Medical/Surgical History Past Medical/Surgical History: (1) Acute alcoholic intoxication (2) Intractable vomiting with nausea (3) Alcoholic ketoacidosis Review of Systems Constitutional: Reports: no symptoms ENT: Reports: no symptoms Genitourinary: Reports: vag bleed/dc Skin: Reports: no symptoms Neurological: Reports: dizziness Endocrine: Reports: unexplained weight loss Physical Exam General Appearance: WD/WN, no apparent distress Lines, tubes and drains: peripheral HEENT: normocephalic, atraumatic Neck: non-tender, normal alignment Respiratory/Chest: chest wall non-tender, lungs clear Cardiovascular/Chest: normal peripheral pulses, regular rhythm Abdomen: normal bowel sounds Last 24 Hour Vital Signs Date Time Temp Pulse Resp B/P (MAP) Pulse Ox O2 Delivery O2 Flow Rate FiO2 01/08/19 03:20 Room Air 01/08/19 03:11 Room Air 01/08/19 03:07 129 144/79 (100) 98 01/08/19 02:50 127 01/08/19 02:30 98.4 126 23 125/74 100 Room Air 01/08/19 02:15 98.4 115 18 141/76 100 Room Air 01/08/19 02:10 98.4 01/08/19 00:45 98.4 126 23 125/74 100 Room Air 01/07/19 23:00 98.4 126 23 146/102 100 Room Air 01/07/19 21:15 136 19 Room Air 01/07/19 20:55 136 19 113/66 (82) 100 Room Air Laboratory Tests Test 01/07/19 21:34 01/08/19 00:45 01/08/19 06:00 White Blood Count 18.0 K/UL (4.8-10.8) H Red Blood Count 4.79 M/UL (4.70-6.10) Hemoglobin 16.1 G/DL (14.2-18.0) Hematocrit 47.7 % (42.0-52.0) Mean Corpuscular Volume 100 FL (80-99) H Mean Corpuscular Hemoglobin 33.7 PG (27.0-31.0) H Mean Corpuscular Hemoglobin Concent 33.8 G/DL (32.0-36.0) Red Cell Distribution Width 14.9 % (11.6-14.8) H Platelet Count 309 K/UL (150-450) Mean Platelet Volume 6.0 FL (6.5-10.1) L Neutrophils (%) (Auto) % (45.0-75.0) Lymphocytes (%) (Auto) % (20.0-45.0) Monocytes (%) (Auto) % (1.0-10.0) Eosinophils (%) (Auto) % (0.0-3.0) Basophils (%) (Auto) % (0.0-2.0) Differential Total Cells Counted 100 Neutrophils % (Manual) 79 % (45-75) H Lymphocytes % (Manual) 12 % (20-45) L Monocytes % (Manual) 6 % (1-10) Eosinophils % (Manual) 0 % (0-3) Basophils % (Manual) 0 % (0-2) Band Neutrophils 3 % (0-8) Platelet Estimate Adequate Platelet Morphology Normal Red Blood Cell Morphology Normal Sodium Level 140 MMOL/L (136-145) 141 MMOL/L (136-145) Potassium Level 3.3 MMOL/L (3.5-5.1) L 3.5 MMOL/L (3.5-5.1) Chloride Level 93 MMOL/L (98-107) L 97 MMOL/L (98-107) L Carbon Dioxide Level 12 MMOL/L (21-32) L 12 MMOL/L (21-32) L Anion Gap 35 mmol/L (5-15) H 32 mmol/L (5-15) H Blood Urea Nitrogen 19 mg/dL (7-18) H 19 mg/dL (7-18) H Creatinine 1.8 MG/DL (0.55-1.30) H 1.5 MG/DL (0.55-1.30) H Estimat Glomerular Filtration Rate 40.6 mL/min (>60) 50.2 mL/min (>60) Glucose Level 70 MG/DL (74-106) L 72 MG/DL (74-106) L Calcium Level 9.1 MG/DL (8.5-10.1) 8.0 MG/DL (8.5-10.1) L Total Bilirubin 0.7 MG/DL (0.2-1.0) Aspartate Amino Transf (AST/SGOT) 82 U/L (15-37) H Alanine Aminotransferase (ALT/SGPT) 48 U/L (12-78) Alkaline Phosphatase 100 U/L (46-116) Total Protein 8.0 G/DL (6.4-8.2) Albumin 4.8 G/DL (3.4-5.0) Globulin 3.2 g/dL Albumin/Globulin Ratio 1.5 (1.0-2.7) Lipase 57 U/L (73-393) L Serum Alcohol 229 mg/dL Urine Color Pale yellow Urine Appearance Clear Urine pH 5 (4.5-8.0) Urine Specific [place] 1.025 (1.005-1.035) Urine Protein 1+ (NEGATIVE) H Urine Glucose (UA) Negative (NEGATIVE) Urine Ketones 4+ (NEGATIVE) H Urine Blood Negative (NEGATIVE) Urine Nitrite Negative (NEGATIVE) Urine Bilirubin Negative (NEGATIVE) Urine Urobilinogen Normal MG/DL (0.0-1.0) Urine Leukocyte Esterase Negative (NEGATIVE) Urine RBC 0-2 /HPF (0 - 0) H Urine WBC 0 /HPF (0 - 0) Urine Squamous Epithelial Cells Occasional /LPF Urine Bacteria Occasional /HPF (NONE) Urine Mucus Occasional /LPF Height (Feet): 5 Height (Inches): 9.00 Weight (Pounds): 165 Medications Current Medications Medications (Trade) Dose Ordered Sig/[place] Route PRN Reason Start Time Stop Time Status Last Admin Dose Admin Amitriptyline HCl (Elavil) 50 mg BEDTIME ORAL 01/08/19 21:00 02/07/19 20:59 Calcium Carbonate (Tums) 1,000 mg DAILY ORAL 01/08/19 09:00 02/07/19 08:59 Folic Acid 1 mg/ Magnesium Sulfate 2000 mg/ Multivitamins 10 ml/Sodium Chloride 1,014.2 ml @ 125 mls/ hr Q24H IV 01/08/19 09:00 02/07/19 08:59 Gabapentin (Neurontin) 1,200 mg BID ORAL 01/08/19 09:00 02/07/19 08:59 Lorazepam (Ativan 2mg/ml 1ml) 2 mg Q4H PRN IV For Anxiety 01/08/19 05:30 01/15/19 05:29 Nicotine (Nicoderm) 1 patch Q24H TDERMAL 01/08/19 06:00 02/07/19 05:59 01/08/19 05:47 Non-Formulary Medication (Non-Formulary Med) 50 ea DAILY ORAL 01/08/19 09:00 02/07/19 08:59 UNV Pantoprazole (Protonix) 40 mg ACBREAKFAST ORAL 01/08/19 07:00 02/07/19 06:59 Thiamine HCl 100 mg/Dextrose 56 ml @ 112 mls/hr Q24H IVPB 01/08/19 09:00 02/07/19 08:59 Trazodone HCl (Desyrel) 25 mg QHS ORAL 01/08/19 21:00 02/07/19 20:59 Trazodone HCl (Desyrel) 200 mg BEDTIME ORAL 01/08/19 21:00 02/07/19 20:59 Vitamin D (Vitamin D) 1 intlu DAILY ORAL 01/08/19 09:00 02/07/19 08:59 UNV Assessment/Plan Problem List: (1) Alcoholic ketoacidosis ICD Codes: E87.2 - Acidosis SNOMED: 72242921 (2) Intractable vomiting with nausea ICD Codes: R11.2 - Nausea with vomiting, unspecified SNOMED: 383140320 Qualifiers: Qualified Codes: R11.2 - Nausea with vomiting, unspecified (3) Acute alcoholic intoxication ICD Codes: F10.929 - Alcohol use, unspecified with intoxication, unspecified SNOMED: 07190065 Qualifiers: Qualified Codes: F10.920 - Alcohol use, unspecified with intoxication, uncomplicated Assessment/Plan: Guille Bryant MD Jan 08, 2019 07:56
[2019-01-08] MEDS ORDERED: Thiamine 100mg IVPB (Q24H) IVPB SCH ×2 (09:00)
[2019-01-08] MEDS ORDERED: Tums 500mg ORAL SCH (09:00)
[2019-01-08] MEDS ORDERED: Vitamin D 400 INTLU TAB ORAL SCH (09:00)
[2019-01-08] MEDS ORDERED: Folic Acid 1 MG, Magnesium Sulfate 2,000 MG, Multivitamin - 12 Injection 10 ML in Sodiu... IV SCH (09:00)
[2019-01-08] MEDS ORDERED: Thiamine 100mg tab ORAL SCH (09:00)
--- NOTE | 2019-01-08 11:40 | Cardiac Electrophysiology PN ---
Subjective Subjective [id number] Objective Last 24 Hour Vital Signs Date Time Temp Pulse Resp B/P (MAP) Pulse Ox O2 Delivery O2 Flow Rate FiO2 01/08/19 09:00 Room Air 01/08/19 08:00 118 01/08/19 08:00 100.9 136 145/84 (104) 96 01/08/19 03:20 Room Air 01/08/19 03:11 Room Air 01/08/19 03:07 129 144/79 (100) 98 01/08/19 02:50 127 01/08/19 02:30 98.4 126 23 125/74 100 Room Air 01/08/19 02:15 98.4 115 18 141/76 100 Room Air 01/08/19 02:10 98.4 01/08/19 00:45 98.4 126 23 125/74 100 Room Air 01/07/19 23:00 98.4 126 23 146/102 100 Room Air 01/07/19 21:15 136 19 Room Air 01/07/19 20:55 136 19 113/66 (82) 100 Room Air Laboratory Tests Test 01/07/19 21:34 01/08/19 00:45 01/08/19 06:00 White Blood Count 18.0 K/UL (4.8-10.8) H Red Blood Count 4.79 M/UL (4.70-6.10) Hemoglobin 16.1 G/DL (14.2-18.0) Hematocrit 47.7 % (42.0-52.0) Mean Corpuscular Volume 100 FL (80-99) H Mean Corpuscular Hemoglobin 33.7 PG (27.0-31.0) H Mean Corpuscular Hemoglobin Concent 33.8 G/DL (32.0-36.0) Red Cell Distribution Width 14.9 % (11.6-14.8) H Platelet Count 309 K/UL (150-450) Mean Platelet Volume 6.0 FL (6.5-10.1) L Neutrophils (%) (Auto) % (45.0-75.0) Lymphocytes (%) (Auto) % (20.0-45.0) Monocytes (%) (Auto) % (1.0-10.0) Eosinophils (%) (Auto) % (0.0-3.0) Basophils (%) (Auto) % (0.0-2.0) Differential Total Cells Counted 100 Neutrophils % (Manual) 79 % (45-75) H Lymphocytes % (Manual) 12 % (20-45) L Monocytes % (Manual) 6 % (1-10) Eosinophils % (Manual) 0 % (0-3) Basophils % (Manual) 0 % (0-2) Band Neutrophils 3 % (0-8) Platelet Estimate Adequate Platelet Morphology Normal Red Blood Cell Morphology Normal Sodium Level 140 MMOL/L (136-145) 141 MMOL/L (136-145) Potassium Level 3.3 MMOL/L (3.5-5.1) L 3.5 MMOL/L (3.5-5.1) Chloride Level 93 MMOL/L (98-107) L 97 MMOL/L (98-107) L Carbon Dioxide Level 12 MMOL/L (21-32) L 12 MMOL/L (21-32) L Anion Gap 35 mmol/L (5-15) H 32 mmol/L (5-15) H Blood Urea Nitrogen 19 mg/dL (7-18) H 19 mg/dL (7-18) H Creatinine 1.8 MG/DL (0.55-1.30) H 1.5 MG/DL (0.55-1.30) H Estimat Glomerular Filtration Rate 40.6 mL/min (>60) 50.2 mL/min (>60) Glucose Level 70 MG/DL (74-106) L 72 MG/DL (74-106) L Calcium Level 9.1 MG/DL (8.5-10.1) 8.0 MG/DL (8.5-10.1) L Total Bilirubin 0.7 MG/DL (0.2-1.0) Aspartate Amino Transf (AST/SGOT) 82 U/L (15-37) H Alanine Aminotransferase (ALT/SGPT) 48 U/L (12-78) Alkaline Phosphatase 100 U/L (46-116) Total Protein 8.0 G/DL (6.4-8.2) Albumin 4.8 G/DL (3.4-5.0) Globulin 3.2 g/dL Albumin/Globulin Ratio 1.5 (1.0-2.7) Lipase 57 U/L (73-393) L Serum Alcohol 229 mg/dL Urine Color Pale yellow Urine Appearance Clear Urine pH 5 (4.5-8.0) Urine Specific [place] 1.025 (1.005-1.035) Urine Protein 1+ (NEGATIVE) H Urine Glucose (UA) Negative (NEGATIVE) Urine Ketones 4+ (NEGATIVE) H Urine Blood Negative (NEGATIVE) Urine Nitrite Negative (NEGATIVE) Urine Bilirubin Negative (NEGATIVE) Urine Urobilinogen Normal MG/DL (0.0-1.0) Urine Leukocyte Esterase Negative (NEGATIVE) Urine RBC 0-2 /HPF (0 - 0) H Urine WBC 0 /HPF (0 - 0) Urine Squamous Epithelial Cells Occasional /LPF Urine Bacteria Occasional /HPF (NONE) Urine Mucus Occasional /LPF Kolton Tran MD Jan 08, 2019 11:40
[2019-01-08] MEDS: chlordiazePOXIDE 25mg Cap ORAL PRN ×2 (13:49→20:08)
--- NOTE | 2019-01-08 14:54 | NUR ---
CASE MANAGEMENT: INITIAL REVIEW 48 YO M ANI FROM HOME CC: ABD PAIN PMHX: ASTHMA. ANXIETY. DEPRESSION. HTN. ALCOHOLISM. SI:ALCOHOLIC KETO ACIDOSIS. HR 136 RR 19 B/P 133/66 SATS 100% ON RA WBC 18 K 3.3 CL 93 CO2 12 BUN 19 CR 1.8 GLU 70 AST 82 LIPASE 57 SERUM ETOH 229 IS: ZOFRAN IV X2 PEPCID IV X1 NS BOLUS X2 ATIVAN IV X2 LIBRIUM PO X1 PHENERGAN IV X1 PATIENT ADMITTED TO TELE 01/08/2019 @ 0117 DCP: PATIENT TO BE DISCHARGED TO HOME ONCE MEDICALLY CLEARED. PLAN OF CARE: 2D ECHO 65-70% PULMO AND CARDIO EVAL Addendum: 01/08/19 at 1826 by Connie Francisco CM INTERQUAL MET
--- NOTE | 2019-01-08 15:10 | Consultation ---
Consult Note Consult Note asked to eval for elevated serum Cr Is a 48-year-old male who is an alcoholic. He presents with chief complaint abdominal pain. Onset just prior to arrival. Pain is diffuse in nature. Similar symptom in the past. Also very anxious and said he needs oxygen. Pain is sharp and crampy in nature. Has nausea and vomiting. No diarrhea. Last drink was an hour ago. Denies any trauma. No diarrhea. Allergies: CEPHALEXIN (Verified Allergy, Unknown, 08/20/18) PENICILLINS (Verified Allergy, Unknown, 08/20/18) Hx Cardiac Problems: Yes Hx Hypertension: Yes Hx Asthma: Yes Hx Gastrointestinal Problems: Yes History Of Psychiatric Problem: Yes - ANXIETM DEPRESSION ALCOHOLISM discussed and interviewed the patient admits to be alcoholic Vodka every day Assessment/Plan Renal failure, likely due to dehydration Vomiting / acute gastritis electrolyte imbalance alcohol intoxication Hydrate Anti Nausea B1 Folate Keep BP in check William Loja MD Jan 08, 2019 15:10
[2019-01-08] MEDS ORDERED: D5 1/2NS w/KCl 20mEq 1,000 ML IV SCH (16:00)
--- NOTE | 2019-01-08 16:27 | NUR ---
NURSE NOTES: allerted to patient room stated his IV saline locked was out. IV already thrown by patient in the garbage can. patient had 2 IV's this am but one already came off this morning at [address] another one but patient refused. Doctor Milan aware no new orders.
--- NOTE | 2019-01-08 19:44 | NUR ---
HAND-OFF: Report given to Georgia Barber. Patient stable plan of care endorsed.
--- NOTE | 2019-01-08 19:50 | NUR ---
NURSE NOTES: RECEIVED PATIENT RESTING IN BED, NO COMPLAINTS OF PAIN AT THIS TIME. FALL PRECAUTIONS IN PLACE: CALL LIGHT, BEDSIDE TABLE AND URINAL WITHIN REACH, BED IN LOW POSITION. PLAN OF CARE REVIEWED.
--- NOTE | 2019-01-08 19:55 | History & Physical ---
History and Physical History & Physicial IM H&P Covering for Dr. Edith Llanos DOS: 01/08/19 Chief Complaint: Abdominal Pain Source: Patient, Medical Record HPI Is a 48-year-old male who is an alcoholic. He presents with chief complaint abdominal pain. Onset just prior to arrival. Pain is diffuse in nature. Similar symptom in the past. Also very anxious and said he needs oxygen. Pain is sharp and crampy in nature. Has nausea and vomiting. No diarrhea. Last drink was an hour ago. Denies any trauma. No diarrhea. So far seen by cards, renal, pulm/cc, recs reviewed, still n/v noted at this time Coded Allergies: CEPHALEXIN (Verified Allergy, Unknown, 08/20/18) PENICILLINS (Verified Allergy, Unknown, 08/20/18) Past Medical History: see triage record, old chart reviewed Past Surgical History: none Pertinent Family History: none Social History: Reports: alcohol use Immunizations: other Reviewed Nursing Documentation: PMH: Agreed; PSxH: Agreed Nursing Documentation-PMH Hx Cardiac Problems: Yes Hx Hypertension: Yes Hx Asthma: Yes Hx Cancer: No Hx Gastrointestinal Problems: Yes History Of Psychiatric Problem: Yes - ANXIETM DEPRESSION ALCOHOLISM Hx Neurological Problems: No Review of Systems Respiratory: Denies: cough, shortness of breath Cardiovascular: Denies: chest pain, palpitations Gastrointestinal: Reports: abdominal pain, nausea, vomiting; Denies: diarrhea Musculoskeletal: Denies: back pain, joint pain Skin: Denies: rash Neurological: Denies: headache, numbness Endocrine: Denies: increased thirst, increased urine Hematologic/Lymphatic: Denies: easy bruising Physical Exam Vital Signs Date Time Temp Pulse Resp B/P (MAP) Pulse Ox O2 Delivery O2 Flow Rate FiO2 01/08/19 20:55 136 19 113/66 (82) 100 Room Air Vitals: reviewed General Appearance: NAD HEENT: normocephalic, atraumatic Neck: non-tender, normal alignment Respiratory/Chest: normal breath sounds bilaterally Cardiovascular/Chest: normal peripheral pulses, ++ tachy Abdomen: normal bowel sounds, soft, nontender Extremities: normal range of motion Labs: noted Imaging: as above Assessment and Recs: # Severe metabolic acidosis from alcohol. Seen by renal, given ivf, now etoh intoxication better --> at this time, has severe dehydration on admission --> ivf as per renal, recs appreciated # Alcoholic ketoacidosis --> folic acid started --> ivf have been started as well, volume expansion --> monitor electrolytes closely --> monitor for seziures # Acute alcoholic intoxication --> again have recommendcessation --> AA program once discharged # Anxiety --> likely related to underlying etoh use --> psych recs prn # Intractable vomiting with nausea --> zofran has been started iv prn basis # Tachycardia due to volume dehydration --> ivf given, now in nsr --> as per cards recs Appreciate residential solar consultant recs Jose R Joe MD Jan 08, 2019 19:55
[2019-01-08 20:09] LABS: APPEARANCE,URINE CLEAR; BILIRUBIN, URINE NEGATIVE (NEGATIVE); COLOR,URINE PALE YELLOW; GLUCOSE, URINE (UA) NEGATIVE (NEGATIVE); KETONES,URINE NEGATIVE (NEGATIVE); LEUKOCYTE ESTERASE ,URINE NEGATIVE (NEGATIVE); NITRITE,URINE NEGATIVE (NEGATIVE); PH,URINE 6 (4.5-8.0); PROTEIN,URINE 1+ (NEGATIVE); UROBILINOGEN,URINE NORMAL MG/DL (0.0-1.0)
--- NOTE | 2019-01-08 20:18 | NUR ---
NURSE NOTES: CALLED DR. PAIGE AND LEFT MESSAGE. MD CALLED BACK. INFORMED MD THAT PATIENT REFUSED IV ACCESS. CHANGED ATIVAN IV TO PO.
[2019-01-08] MEDS ORDERED: LORazepam 1mg tab ORAL PRN ×2 (20:30)
--- NOTE | 2019-01-08 20:39 | NUR ---
NURSE NOTES: RECEIVED CALL FROM [facility] DRUG SCREEN POSITIVE FOR BENZODIAZEPINES AND MARIJUANA. DR. FIGUEROA MADE AWARE, NO NEW ORDERS.
[2019-01-08] MEDS ORDERED: TraZODone 100mg tab ORAL SCH (21:00)
[2019-01-08] MEDS ORDERED: Amitriptyline 100mg tab ORAL SCH (21:00)
[2019-01-08] MEDS ORDERED: TraZODone HCl 25 mg tablet ORAL SCH (21:00)
--- NOTE | 2019-01-08 21:00 | Consultation ---
DATE OF CONSULTATION: 01/08/2019 NOTE: "POOR AUDIO QUALITY" CARDIOLOGY CONSULTATION CONSULTING PHYSICIAN: Kolton Tran M.D. REFERRING PHYSICIAN: Aaron Llanos D.O. REASON FOR CONSULTATION: Tachycardia. HISTORY OF PRESENT ILLNESS: The patient is a 48-year-old gentleman with history of heavy alcohol use and recurrent admission for alcohol intoxication, who presented to the emergency room with abdominal pain, which was diffuse. The patient was also very anxious and stated he needed oxygen. He also had nausea and vomiting without any diarrhea. His alcohol level was more than 200. The patient was noted to be tachycardic with heart rate of more than 120s and Cardiology consultation was obtained for further evaluation and management. His heart rate on EKG was actually 142 beats per minute by paramedics. REVIEW OF SYSTEMS: Negative other than what was mentioned in the history of present illness. PAST MEDICAL HISTORY: History of heavy alcohol use. FAMILY HISTORY: Noncontributory. SOCIAL HISTORY: He continues to drink alcohol heavily. Denied using any other substance use. ALLERGIES: He is allergic to cephalexin and penicillin. MEDICATIONS AT HOME: Include amitriptyline, gabapentin, vitamin B, trazodone, and vitamin D. PHYSICAL EXAMINATION: VITAL SIGNS: Show blood pressure of 145/84, pulse 136, and temperature 100.9. HEAD AND NECK: Show no JVD. LUNGS: Clear. CARDIOVASCULAR: Shows tachycardic, S1 and S2 with no gallop or murmur. ABDOMEN: Soft. EXTREMITIES: No pitting edema. LABORATORY DATA: His labs show white count of 18, hemoglobin 16.1, hematocrit 47.7, and platelet count of 309,000. Sodium 141, potassium 3.5, BUN 19, creatinine 1.5, and glucose 72. His carbon dioxide level is only 12. His UA shows 4+ ketones and 1+ protein. Serum alcohol is 229. ASSESSMENT AND PLAN: 1. Alcoholic ketoacidosis, 4+ ketones in the urine. Alcohol level of 229. CO2 of only 12. The patient will be on IV hydration. The patient is also on Desyrel, Elavil, Neurontin, thiamine, and folate. The patient is also on Librium. 2. Tachycardia. This is sinus tachycardia with no evidence of atrial fibrillation, likely due to alcohol intoxication and acidosis. Echocardiogram also will be ordered to make sure he has not already developed alcoholic-induced cardiomyopathy. Thank you very much, Dr. Llanos, for allowing me to participate in the care of this patient. Please do not hesitate to contact me for any questions regarding my evaluation. Kolton Tran M.D. DR: ALFREDO JOB#: [id number] CC:
[2019-01-09] MEDS: chlordiazePOXIDE 25mg Cap ORAL PRN (02:15)
--- NOTE | 2019-01-09 04:18 | NUR ---
NURSE NOTES: PATIENT WANTS TO LEAVE HOSPITAL AMA. PATIENT ALERT AND ORIENTED X4. EXPLAINED TO PATIENT RISK OF LEAVING HOSPITAL AT THIS TIME. PATIENT VERBALIZED UNDERSTANDING BUT STILL INSISTING ON LEAVING AMA. PATIENT HAD NO IV ACCESS, ALL BELONGINGS ACCOUNTED FOR. CALLED AND LEFT MESSAGE FOR DR. STEIN. CHARGE NURSE AND DIRECTOR OF EMPLOYEE DEVELOPMENT MADE AWARE. PATIENT LEFT HOSPITAL AMA, ACCOMPANIED BY .
[2019-01-09] MEDS ORDERED: Vitamin D 1000 IU Tab ORAL SCH (09:00)
--- NOTE | 2019-01-09 12:05 | Diagnostic Imaging Report ---
Indication: Abnormal renal function tests Technique: Grayscale and duplex images of the kidneys, retroperitoneum, and bladder were obtained. Comparison: No comparison sonograms. Reference is made to abdomen pelvis CT dated 12/20/2018 Findings: Right kidney measures 10.4 cm in length. Left kidney measures 12 cm in length. Both kidneys demonstrate normal echogenicity. No hydronephrosis. No focal abnormality. Normal inferior vena cava. Bladder is normal. Impression: negative.
--- NOTE | 2019-01-10 12:05 | Discharge Summary ---
Discharge Summary Discharge Summary _ DATE OF ADMISSION: 01/08/2019 DATE OF DISCHARGE: 01/09/2019 Patient left AGAINST MEDICAL ADVICE REASON FOR ADMISSION: 48 years old male with history of alcohol abuse, recurrent admissions for ETOH intoxication, presented to emergency department with chief complaint of abdominal pain. Pain described as diffused with associated nausea and vomiting, no diarrhea. Patient appeared to be very anxious and stated that he needs oxygen. H Patient was tachycardic. EKG revealed sinus tachycardia, no acute ischemic changes. Alcohol level was above 200. Laboratory work-up revealed leukocytosis with WBC 18, stable hemoglobin and hematocrit. Potassium 3.3 . BUN 19 , creatinine 1.8. Anion gap 35. CO2 12. Glucose 70. AST 82. ALT 48. Lipase 57. Urinalysis revealed +4 ketones, +1 protein , no evidence of UTI. Urine toxicology screen was positive for marijuana , benzodiazepine. CONSULTANTS: cna Dr. Espinoza pulmonary/critical care Dr. Yates trolley car operator Dr. Loja HOSPITAL COURSE: Patient admitted to telemetry bed due to tachycardia . Patient started on the IV fluids with multivitamin and vitamins/banana bag. Librium and Ativan were on board as needed. GI prophylaxis provided. Supplemental oxygen provided as needed to keep pulse oximetry above 92%. Pulse oximetry was stable on room air. Proposal Engineer followed. Patient counseled on smoking cessation and started on nicotine patch. Chemical Process Engineer followed. Per cardiology, tachycardia was due to sinus tachycardia , no evidence of atrial fibrillation. Sinus tachycardia was likely due to alcohol intoxication and acidosis. Echocardiogram was ordered to rule out alcoholic induced cardiomyopathy. Car Wash Attendant Automatic followed. Renal ultrasound demonstrated bilateral normal kidney echogenicity. No hydronephrosis. Nephrotoxins were avoided. Potassium was replaced. Prior to signing AMA creatinine from 1.8 down to 1.5. Patient decided to leave AGAINST MEDICAL ADVICE. The risks and consequences of signing AGAINST MEDICAL ADVICE were discussed with patient in detail. Patient verbalized understanding, nevertheless signed AMA form and left. FINAL DIAGNOSES: Alcoholic ketoacidosis Acute alcohol intoxication Intractable nausea and vomiting, possible acute gastritis Acute renal failure ,likely due to dehydration Anxiety Sinus tachycardia- resolved Electrolyte imbalance I have been assigned to dictate discharge summary for this account. I was not involved in the patient's management. Delores Magana NP Jan 10, 2019 12:05
--- NOTE | 2019-01-10 17:16 | Cardiology Report ---
APPROVED REPORT EXAM: Two-dimensional and M-mode echocardiogram with Doppler and color Doppler. INDICATION TACHYCARDIA M-Mode DIMENSIONS IVSd1.1 (0.7-1.1cm)Left Atrium (MM)2.5 (1.6-4.0cm) LVDd3.7 (3.5-5.6cm)Aortic Root4.0 (2.0-3.7cm) PWd1.2 (0.7-1.1cm)Aortic Cusp Exc.2.0 (1.5-2.0cm) IVSs1.1 cm LVDs2.0 (2.5-4.0cm) PWs1.3 cm Normal left ventricular chamber size, systolic function and wall motion. Left ventricular ejection fraction estimated to be 65-70%. No evidence of left ventricular hypertrophy . No evidence of pericardial effusion. All other cardiac chamber sizes are within normal limits. Focal aortic valve sclerosis with adequate cusp excursion. Thickened mitral valve leaflets with normal excursion. Mitral annulus and aortic root calcification. Normal pulmonic valve structure. Normal tricuspid valve structure. IVC at normal size with physiologic collapse. A color flow and spectral Doppler study was performed and revealed: No aortic insufficiency. Trace mitral regurgitation. Mitral diastolic velocities suggest reduced left ventricular relaxation c/w mild LV diastolic dysfunction (Grade I ) Trace tricuspid regurgitation. Tricuspid systolic velocities suggests peak right ventricular systolic pressure of 31mmHg.
== END 2019-01-09 04:20 | disposition left against medical advice (07) | DRG 894 ==
LOC: EDUNIT# 20:55 → EDBD 20:55 → EMR 21:28 → 2E 01-08 01:17 → EDBEDREQ 01-08 01:47 → 2E 01-08 04:42
DX: F10.288 Alcohol dependence with other alcohol-induced disorder (principal); E87.2 Acidosis; N17.9 Acute kidney failure, unspecified; F10.229 Alcohol dependence with intoxication, unspecified; F41.9 Anxiety disorder, unspecified; K29.00 Acute gastritis without bleeding; E86.0 Dehydration; R00.0 Tachycardia, unspecified; E87.8 Other disorders of electrolyte and fluid balance, not elsewhere classified; I10 Essential (primary) hypertension
CPT/HCPCS: 36415; 76770; 80048; 80053; 80307; 80329; 81001; 82043; 83690; 83935; 84300; 85007; 85025; 89050; 93005; 93306; 96361; 96374; 96375; 96376; 99291; J2405

== ENCOUNTER 2019-03-17 04:38 | Emergency (ER) | payer BC ==
[~2019-03-17] VITALS: Ht 175.3 cm; Wt 77.1 kg
[2019-03-17 04:50] VITALS: BP 150/88
--- NOTE | 2019-03-17 04:50 | NUR ---
ED Nurse Note: pt brought in by ambulance, C/O nausea, vomiting and abd pain to left lower quadrant that radiates to the lower back area. pt stated he drank " a lot " of vodka about 1.5 hour ago. the abd pain started about 8 hours ago. pt is ambulatory, alert x4.
[2019-03-17] MEDS ORDERED: LORazepam Inj 2mg/ml 1ml IV ONE (05:00)
[2019-03-17] MEDS ORDERED: Pantoprazole Inj IV ONE (05:00)
--- NOTE | 2019-03-17 05:01 | Emergency Room Report ---
History of Present Illness General Chief Complaint: Nausea Source: Patient Present Illness HPI This is a 48-year-old male with a history of high blood pressure. Also history of alcohol abuse with multiple visit here. He presents here with chief complaint of abdominal pain with nausea and vomiting. Said he is unable to keep anything down over the last few hours. Similar symptom in the past. Was admitted here several times for the same. Pain is epigastric area. Worse with vomiting. Pain is sharp. Vomiting is watery. No diarrhea. Pain is crampy in nature denies any fever chills. Denies any bloody emesis. Allergies: Coded Allergies: CEPHALEXIN (Verified Allergy, Unknown, 08/20/18) PENICILLINS (Verified Allergy, Unknown, 08/20/18) Patient History Past Medical History: see triage record, old chart reviewed, HTN, asthma Past Surgical History: other Pertinent Family History: none Social History: Reports: alcohol use Immunizations: other Reviewed Nursing Documentation: PMH: Agreed; PSxH: Agreed Nursing Documentation-PMH Hx Cardiac Problems: Yes Hx Hypertension: Yes Hx Asthma: Yes Hx Cancer: No Hx Gastrointestinal Problems: Yes Hx Neurological Problems: No Review of Systems Eye: Denies: eye pain, blurred vision ENT: Denies: ear pain, nose congestion, throat swelling Respiratory: Denies: cough, shortness of breath Cardiovascular: Denies: chest pain, palpitations Gastrointestinal: Reports: abdominal pain, nausea, vomiting; Denies: diarrhea Musculoskeletal: Denies: back pain, joint pain Skin: Denies: rash Neurological: Denies: headache, numbness Endocrine: Denies: increased thirst, increased urine Hematologic/Lymphatic: Denies: easy bruising All Other Systems: negative except mentioned in HPI Physical Exam Vital Signs Date Time Temp Pulse Resp B/P (MAP) Pulse Ox O2 Delivery O2 Flow Rate FiO2 03/17/19 04:41 98.6 98 21 161/91 (114) 98 Room Air Vitals with hypertension. Repeat heart rate 120. Sp02 EP Interpretation: reviewed, normal General Appearance: well appearing, no apparent distress, alert Head: normocephalic, atraumatic Eyes: bilateral eye PERRL, bilateral eye EOMI ENT: hearing grossly normal, normal pharynx Neck: full range of motion, supple, no meningismus Respiratory: chest non-tender, lungs clear, normal breath sounds Cardiovascular #1: regular rate, rhythm, no murmur Gastrointestinal: normal bowel sounds, no mass, no organomegaly, no bruit, non- distended, tenderness - Epigastric Musculoskeletal: back normal, gait/station normal, normal range of motion Neurologic: alert, oriented x3 Psychiatric: anxious Procedures Critical Care Time Critical Care Time Critical care is mandated in this patient who presented with severe metabolic acidosis secondary to alcohol. Patient require my urgent intervention to attenuate the risks of metabolic labs which may lead to cardiovascular collapse and . Critical care time is 35 minutes excluding any reportable procedure. Critical care time included evaluation, multiple reevaluation, looking at old charts, interpreting laboratory and diagnostic data, discussing case with patient and family and consultants, and charting. Medical Decision Making Diagnostic Impression: Primary Impression: Metabolic acidosis Additional Impressions: Alcohol withdrawal syndrome Qualified Codes: F10.230 - Alcohol dependence with withdrawal, uncomplicated Dehydration Nausea and vomiting in adult patient Alcoholic gastritis Qualified Codes: K29.20 - Alcoholic gastritis without bleeding Alcoholic hepatitis Qualified Codes: K70.10 - Alcoholic hepatitis without ascites Leukocytosis Qualified Codes: D72.829 - Elevated white blood cell count, unspecified ER Course Patient presents with abdominal pain with nausea vomiting. He has alcoholic ketoacidosis. More severe than before. Patient felt much better after Zofran and IV fluid. Also gave him bicarb here. He also has a leukocytosis. This is a typical presentation for him no evidence of any infectious cause. Patient is an alcoholic and wants to quit. He is not suicidal or homicidal. Based on his labs, I advised him to be admitted to the hospital. Patient refused. He said he has too much stuff to do today. He said he felt better. Tolerating p.o. He wants fluids and said he wants to go home afterward. Patient understands the risks of leaving AGAINST MEDICAL ADVICE. This includes metabolic collapse, ability and even . Lab Results Impression Labs with leukocytosis and metabolic acidosis EKG Diagnostic Results Rate: tachycardiac Rhythm: NSR Rhythm Strip Diag. Results EP Interpretation: yes Rate: 120 Rhythm: NSR, no PVC's, no ectopy Last Vital Signs Date Time Temp Pulse Resp B/P (MAP) Pulse Ox O2 Delivery O2 Flow Rate FiO2 03/17/19 04:41 98.6 98 21 161/91 (114) 98 Room Air Status: improved Disposition: AGAINST MEDICAL ADVICE Condition: Improved Referrals: NON PHYSICIAN (PCP) Additional Instructions: You have severe metabolic and electrolyte abnormality secondary to your alcohol abuse. You should be admitted to the hospital for further IV fluid and work- up. You are leaving AGAINST MEDICAL ADVICE. The risk for this include but not limited to worsening of symptoms, increasing morbidity and even . Return if you change your mind. Follow-up with your doctor in 1 to 2 days for recheck. Return if worse. Rivera Sullivan MD Mar 17, 2019 05:01
--- NOTE | 2019-03-17 05:15 | NUR ---
ED Nurse Note: blood sample sent down to lab. pt unable to provide urine sample at this time
[2019-03-17 05:44] LABS: HEMATOCRIT 49.2 % (42.0-52.0); HEMOGLOBIN 16.9 G/DL (14.2-18.0); MEAN CORPUSCULAR VOLUME 101 FL (80-99); PLATELET COUNT 254 K/UL (150-450); RED BLOOD COUNT 4.89 M/UL (4.70-6.10); RED CELL DISTRIBUTION WIDTH 11.2 % (11.6-14.8); WHITE BLOOD COUNT 21.4 K/UL (4.8-10.8)
[2019-03-17 05:46] LABS: ALANINE AMINOTRANSFERASE 86 U/L (12-78); ALBUMIN 5.3 G/DL (3.4-5.0); ALBUMIN/GLOBULIN RATIO 1.2 (1.0-2.7); ALKALINE PHOSPHATASE 84 U/L (46-116); ANION GAP 35 mmol/L (5-15); ASPARTATE AMINO TRANSFERASE 144 U/L (15-37); BILIRUBIN,TOTAL 0.7 MG/DL (0.2-1.0); BLOOD UREA NITROGEN 26 mg/dL (7-18); CALCIUM 9.4 MG/DL (8.5-10.1); CHLORIDE 92 MMOL/L (98-107); CREATININE 1.6 MG/DL (0.55-1.30); SODIUM 132 MMOL/L (136-145)
[2019-03-17 05:49] LABS: POTASSIUM 5.2 MMOL/L (3.5-5.1)
[2019-03-17 06:06] LABS: CARBON DIOXIDE < 5 MMOL/L (21-32)
[2019-03-17] MEDS ORDERED: LR 1000ml 1,000 ML IV ONE (06:15)
[2019-03-17] MEDS ORDERED: Sodium Bicarbonate 50ml Carp IV ONE (06:15)
[2019-03-17] MEDS ORDERED: LIBRIUM25 MG ORAL (06:24)
[2019-03-17] MEDS ORDERED: chlordiazePOXIDE 25mg Cap ORAL ONE (06:30)
--- NOTE | 2019-03-17 06:57 | NUR ---
ED Nurse Note: report given to DAVID Bell. pt in bed awake. VSS. by bedside.
[2019-03-17 06:59] LABS: APPEARANCE,URINE CLEAR; BILIRUBIN, URINE NEGATIVE (NEGATIVE); COLOR,URINE PALE YELLOW; GLUCOSE, URINE (UA) NEGATIVE (NEGATIVE); KETONES,URINE 4+ (NEGATIVE); LEUKOCYTE ESTERASE ,URINE NEGATIVE (NEGATIVE); NITRITE,URINE NEGATIVE (NEGATIVE); PH,URINE 5 (4.5-8.0); PROTEIN,URINE 2+ (NEGATIVE); UROBILINOGEN,URINE NORMAL MG/DL (0.0-1.0)
--- NOTE | 2019-03-17 07:00 | NUR ---
ED Nurse Note: Received report from DAVID Rubio. Pt in bed, awake, verbally responsive, able to make needs known. IV fluids ongoing. at bedside. Instructed to call for assistance, verbalized understanding. Will continue to monitor.
[2019-03-17 07:18] VITALS: BP 128/60
--- NOTE | 2019-03-17 07:40 | NUR ---
ER DISCHARGE NOTE: Patient is cleared to be discharged per ERMD, pt is aox4, on room air, with stable vital signs. pt was given dc and prescription instructions, pt was able to verbalize understanding, pt id band and iv site removed without complications. pt is able to ambulate with steady gait accompanied by . pt took all belongings.
[2019-03-17 07:59] VITALS: BP 132/65
--- NOTE | 2019-03-29 16:00 | Cardiology Report ---
APPROVED REPORT EKG Measurement Heart [id number] Sinus tachycardia Otherwise normal ECG
== END 2019-03-17 07:40 | disposition left against medical advice (07) ==
LOC: EDBD 04:38 → EMR 04:52
DX: E87.2 Acidosis (principal); F10.230 Alcohol dependence with withdrawal, uncomplicated; E86.0 Dehydration; K29.20 Alcoholic gastritis without bleeding; K70.10 Alcoholic hepatitis without ascites; D72.829 Elevated white blood cell count, unspecified; I10 Essential (primary) hypertension; J45.909 Unspecified asthma, uncomplicated; Z88.1 Allergy status to other antibiotic agents; Z88.0 Allergy status to penicillin
CPT/HCPCS: 36415; 80053; 81003; 83690; 85007; 85025; 93005; 96361; 96374; 96375; 96376; 99291; C9113; G0480; J2405; 80329

== ENCOUNTER 2019-04-02 10:28 | Inpatient (IN) | payer BC ==
[~2019-04-02] VITALS: Ht 172.7 cm; Wt 78.0 kg
[2019-04-02] VITALS (7 sets, daily range): BP systolic 130–168; BP diastolic 81–112
[~2019-04-02 10:28] MED LIST changes: +LIBRIUM25 MG ORAL
--- NOTE | 2019-04-02 10:35 | NUR ---
ED Nurse Note: pt presents to ED via EMS with abd pain. per EMS pt admits to consuming castro goose vodka this AM and now has LUQ abd pain that is TTP. EMS also state that pt is "purposely increasing his RR" his SpO2 was 98% en route. In ED pt is yelling for his and shaking, taking shallow breaths, his SpO2 is 100% on 2L of O2 via nasal cannula. pt forced himself to vomit twice by putting his fingers down his throat. 200 mL of clear fluid with a few chunks of food were noted in the emesis basin. Pt reports that he takes "a lot of meds" but is unable to tell me what he takes. 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 no other complaints at this time
[2019-04-02] MEDS ORDERED: LR 1000ml 1,000 ML IV SCH ×2 (10:45)
[2019-04-02] MEDS ORDERED: Thiamine HCl 100 MG in D5W 55 ML IVPB ONE (11:15)
[2019-04-02] MEDS ORDERED: LORazepam Inj 2mg/ml 1ml IV ONE (11:15)
[2019-04-02 11:17] LABS: HEMATOCRIT 52.4 % (42.0-52.0); MEAN CORPUSCULAR VOLUME 96 FL (80-99); PLATELET COUNT 294 K/UL (150-450); RED BLOOD COUNT 5.44 M/UL (4.70-6.10); RED CELL DISTRIBUTION WIDTH 11.2 % (11.6-14.8)
[2019-04-02 11:24] LABS: HEMOGLOBIN 18.5 G/DL (14.2-18.0); WHITE BLOOD COUNT 22.5 K/UL (4.8-10.8)
[2019-04-02 11:27] LABS: ANION GAP 28 mmol/L (5-15); BLOOD UREA NITROGEN 15 mg/dL (7-18); CALCIUM 9.4 MG/DL (8.5-10.1); CARBON DIOXIDE 15 MMOL/L (21-32); CHLORIDE 94 MMOL/L (98-107); CREATININE 1.3 MG/DL (0.55-1.30); POTASSIUM 4.5 MMOL/L (3.5-5.1); SODIUM 137 MMOL/L (136-145)
[2019-04-02 11:31] LABS: ALANINE AMINOTRANSFERASE 60 U/L (12-78); ALBUMIN 4.8 G/DL (3.4-5.0); ALBUMIN/GLOBULIN RATIO 1.1 (1.0-2.7); ALKALINE PHOSPHATASE 106 U/L (46-116); ASPARTATE AMINO TRANSFERASE 71 U/L (15-37); BILIRUBIN,TOTAL 0.7 MG/DL (0.2-1.0)
--- NOTE | 2019-04-02 11:41 | Emergency Room Report ---
History of Present Illness General Chief Complaint: Abdominal Pain Source: Patient, Medical Record, EMS Present Illness HPI Patient is a 48-year-old female who presents after increased abdominal pain and vomiting. Patient had prior history of alcohol abuse. He reports having a recent heavy alcohol intake. He had been noted to have multiple similar episodes in the past. Denies hematemesis. He had been self inducing vomiting and drinking large amount of alcohol. Reportedly binge drinking for several days. States that he takes multiple medications but does not recall the name. Allergies: Coded Allergies: CEPHALEXIN (Verified Allergy, Severe, Anaphylaxis, , 04/02/19) PENICILLINS (Verified Allergy, Severe, Anaphylaxis, 04/02/19) SILVER (Verified Allergy, Intermediate, hives, 04/02/19) Patient History Past Medical History: see triage record Reviewed Nursing Documentation: PMH: Agreed; PSxH: Agreed Nursing Documentation-PMH Past Medical History: No History, Except For Hx Cardiac Problems: Yes Hx Hypertension: Yes Hx Asthma: Yes Hx Cancer: No Hx Gastrointestinal Problems: Yes Hx Neurological Problems: No Review of Systems All Other Systems: limited - by poor cooperation Physical Exam Vital Signs Date Time Temp Pulse Resp B/P (MAP) Pulse Ox O2 Delivery O2 Flow Rate FiO2 04/02/19 10:29 98.1 140 24 168/112 (130) 95 Room Air 04/02/19 11:00 2.0 Sp02 EP Interpretation: reviewed, normal General Appearance: normal inspection, alert, GCS 15, non-toxic, moderate distress Head: atraumatic ENT: normal ENT inspection, hearing grossly normal, normal voice Neck: normal inspection, full range of motion, supple, no bony tend Respiratory: normal inspection, lungs clear, normal breath sounds, no respiratory distress, no retraction, no wheezing Cardiovascular #1: no edema, tachycardia Gastrointestinal: normal inspection, normal bowel sounds, non tender, soft, no guarding, no hernia Genitourinary: no CVA tenderness Musculoskeletal: normal inspection, back normal, normal range of motion Neurologic: normal inspection, alert, oriented x3, responsive, executive administrative assistant III-XII nml as tested, speech normal Psychiatric: normal inspection, anxious Skin: no rash, diaphoresis Medical Decision Making Diagnostic Impression: Primary Impression: Acute alcoholic intoxication Additional Impressions: Dehydration Alcoholic ketosis Metabolic acidosis ER Course Patient presented after increased abdominal pain and vomiting. Differential diagnosis include was not limited to gastritis, ulcer, alcoholic ketoacidosis, pancreatitis among others. Because of complexity of patient's case laboratory tests and imaging studies were ordered. Patient was noted to have similar symptoms in the past after excessive alcohol intake. Patient reportedly had been drinking heavily over the past few days. He was noted to have initial laboratory testing showing metabolic acidosis as well as market leukocytosis and hemoconcentration. Patient was given IV fluids as well as IV antiemetics. Patient was noted to have some improvement in his tachycardia after IV fluids. He was given IV Ativan due to agitation and anxiety. Patient was not given Zofran due to prolongation of his QT interval. He was given IV magnesium. Dr. Aaron Llanos was contacted for inpatient due to prior admission. Labs Test 04/02/19 10:45 White Blood Count 22.5 K/UL (4.8-10.8) Red Blood Count 5.44 M/UL (4.70-6.10) Hemoglobin 18.5 G/DL (14.2-18.0) Hematocrit 52.4 % (42.0-52.0) Mean Corpuscular Volume 96 FL (80-99) Mean Corpuscular Hemoglobin 33.9 PG (27.0-31.0) Mean Corpuscular Hemoglobin Concent 35.3 G/DL (32.0-36.0) Red Cell Distribution Width 11.2 % (11.6-14.8) Platelet Count 294 K/UL (150-450) Mean Platelet Volume 6.8 FL (6.5-10.1) Neutrophils (%) (Auto) % (45.0-75.0) Lymphocytes (%) (Auto) % (20.0-45.0) Monocytes (%) (Auto) % (1.0-10.0) Eosinophils (%) (Auto) % (0.0-3.0) Basophils (%) (Auto) % (0.0-2.0) Sodium Level 137 MMOL/L (136-145) Potassium Level 4.5 MMOL/L (3.5-5.1) Chloride Level 94 MMOL/L (98-107) Carbon Dioxide Level 15 MMOL/L (21-32) Anion Gap 28 mmol/L (5-15) Blood Urea Nitrogen 15 mg/dL (7-18) Creatinine 1.3 MG/DL (0.55-1.30) Estimat Glomerular Filtration Rate 59.2 mL/min (>60) Glucose Level 100 MG/DL (74-106) Calcium Level 9.4 MG/DL (8.5-10.1) Total Bilirubin 0.7 MG/DL (0.2-1.0) Aspartate Amino Transf (AST/SGOT) 71 U/L (15-37) Alanine Aminotransferase (ALT/SGPT) 60 U/L (12-78) Alkaline Phosphatase 106 U/L (46-116) Troponin I 0.000 ng/mL (0.000-0.056) Total Protein 9.1 G/DL (6.4-8.2) Albumin 4.8 G/DL (3.4-5.0) Globulin 4.3 g/dL Albumin/Globulin Ratio 1.1 (1.0-2.7) Lipase 60 U/L (73-393) EKG Diagnostic Results Rate: tachycardiac Rhythm: NSR ST Segments: other - qt prolongation Rhythm Strip Diag. Results EP Interpretation: yes Rhythm: NSR, no PVC's, no ectopy Last Vital Signs Date Time Temp Pulse Resp B/P (MAP) Pulse Ox O2 Delivery O2 Flow Rate FiO2 04/02/19 11:00 98.1 24 144/98 100 Nasal Cannula 2.0 04/02/19 10:35 140 Status: unchanged Disposition: ADMITTED INPATIENT Condition: Stable Referrals: NON PHYSICIAN (PCP) Gurmeet Krueger MD Apr 02, 2019 11:41
[2019-04-02] MEDS ORDERED: D5 1/2NS w/KCl 20mEq 1,000 ML IV SCH (11:45)
[2019-04-02] MEDS ORDERED: DiphenhydrAMINE 50mg/ml Inj IVP ONE (12:30)
[2019-04-02] MEDS ORDERED: UNOBMED (12:31)
--- NOTE | 2019-04-02 12:55 | NUR ---
ED Nurse Note: pt's is at bedside. he has started vomiting. ERMD aware and will order reglan for the pt
[2019-04-02] MEDS ORDERED: Metoclopramide 10mg/2ml Inj ONE (12:58)
[2019-04-02] MEDS ORDERED: Metoclopramide 10mg/2ml Inj IVP ONE (13:00)
--- NOTE | 2019-04-02 13:05 | NUR ---
ED Nurse Note: gave report to Mellisa HERNANDEZ who will be admiting nruse for pt. will transfer nce KCl is hung and on a pump
--- NOTE | 2019-04-02 13:10 | NUR ---
ED Nurse Note: pt accidentally pulled L AC IV out of his hand, Tamika RN able to get another 20 gauge into R arm
--- NOTE | 2019-04-02 13:30 | NUR ---
ED Nurse Note: pt transported with Sandra HERNANDEZ and pharmaceutical laboratory technicianrudi Irvin with portable monitor, pt is in stable condition and drinking water , cooperative with requests from ER staff
--- NOTE | 2019-04-02 13:35 | NUR ---
NURSE NOTES: Received report from DAVID Flores in ER. Pt brought to room 221-2 via gurney. Pt here for ETOH abuse/WD, Leukocytosis, dehydration. Pt is A/Ox4, vitals obtained and assessment done, pt is diaphoretic with chills, apical HR is 125, seizure precautions in place, fall precautions in place, at bedside, call light within reach, bed in lowest position.
[2019-04-02] MEDS ORDERED: AMITRIPTYLINE100 MG ORAL (14:38)
[2019-04-02] MEDS ORDERED: LIBRIUM10 MG ORAL (14:38)
[2019-04-02] MEDS ORDERED: CALCIUM500 M2 PO (14:38)
[2019-04-02] MEDS ORDERED: VITAMIN B-1100 MG ORAL (14:38)
[2019-04-02] MEDS ORDERED: GABAPENTIN600 MG ORAL (14:38)
[2019-04-02] MEDS ORDERED: CYMBALTA30 MG ORAL (14:38)
[2019-04-02] MEDS ORDERED: CENTRUM MEN'S1 EACH PO (14:38)
[2019-04-02] MEDS ORDERED: VITAMIN D400 INTLU ORAL (14:38)
[2019-04-02] MEDS ORDERED: TRAZODONE HCL150 MG ORAL (14:38)
--- NOTE | 2019-04-02 14:43 | NUR ---
NURSE NOTES: Pt seen by Dr. Collier ordered stat EKG and 2D echo. RN asked Dr. Llanos for admission orders
--- NOTE | 2019-04-02 14:45 | Cardiac Electrophysiology PN ---
Subjective Subjective [id number] Objective Last 24 Hour Vital Signs Date Time Temp Pulse Resp B/P (MAP) Pulse Ox O2 Delivery O2 Flow Rate FiO2 04/02/19 13:46 98.2 130 16 155/94 (114) 98 125 04/02/19 13:27 98.1 21 148/89 95 Room Air 04/02/19 13:24 Room Air 04/02/19 12:00 98.1 23 157/96 100 Nasal Cannula 2.0 04/02/19 11:00 98.1 24 144/98 100 Nasal Cannula 2.0 04/02/19 10:35 140 24 Room Air 04/02/19 10:35 98.1 24 168/112 95 Room Air 04/02/19 10:29 98.1 140 24 168/112 (130) 95 Room Air Laboratory Tests Test 04/02/19 10:45 White Blood Count 22.5 K/UL (4.8-10.8) *H Red Blood Count 5.44 M/UL (4.70-6.10) Hemoglobin 18.5 G/DL (14.2-18.0) *H Hematocrit 52.4 % (42.0-52.0) H Mean Corpuscular Volume 96 FL (80-99) Mean Corpuscular Hemoglobin 33.9 PG (27.0-31.0) H Mean Corpuscular Hemoglobin Concent 35.3 G/DL (32.0-36.0) Red Cell Distribution Width 11.2 % (11.6-14.8) L Platelet Count 294 K/UL (150-450) Mean Platelet Volume 6.8 FL (6.5-10.1) Neutrophils (%) (Auto) % (45.0-75.0) Lymphocytes (%) (Auto) % (20.0-45.0) Monocytes (%) (Auto) % (1.0-10.0) Eosinophils (%) (Auto) % (0.0-3.0) Basophils (%) (Auto) % (0.0-2.0) Differential Total Cells Counted 100 Neutrophils % (Manual) 84 % (45-75) H Lymphocytes % (Manual) 11 % (20-45) L Monocytes % (Manual) 5 % (1-10) Eosinophils % (Manual) 0 % (0-3) Basophils % (Manual) 0 % (0-2) Band Neutrophils 0 % (0-8) Platelet Estimate Adequate Platelet Morphology Normal Red Blood Cell Morphology Normal Sodium Level 137 MMOL/L (136-145) Potassium Level 4.5 MMOL/L (3.5-5.1) Chloride Level 94 MMOL/L (98-107) L Carbon Dioxide Level 15 MMOL/L (21-32) L Anion Gap 28 mmol/L (5-15) H Blood Urea Nitrogen 15 mg/dL (7-18) Creatinine 1.3 MG/DL (0.55-1.30) Estimat Glomerular Filtration Rate 59.2 mL/min (>60) Glucose Level 100 MG/DL (74-106) Calcium Level 9.4 MG/DL (8.5-10.1) Total Bilirubin 0.7 MG/DL (0.2-1.0) Aspartate Amino Transf (AST/SGOT) 71 U/L (15-37) H Alanine Aminotransferase (ALT/SGPT) 60 U/L (12-78) Alkaline Phosphatase 106 U/L (46-116) Troponin I 0.000 ng/mL (0.000-0.056) Total Protein 9.1 G/DL (6.4-8.2) H Albumin 4.8 G/DL (3.4-5.0) Globulin 4.3 g/dL Albumin/Globulin Ratio 1.1 (1.0-2.7) Lipase 60 U/L (73-393) L Kolton Tran MD Apr 02, 2019 14:45
[2019-04-02] MEDS ORDERED: Morphine Sulfate 2mg/ml Inj(IV/IM USE ONLY) IVP PRN (14:57)
[2019-04-02] MEDS: D5NS 1,000 ML IV SCH ×2 (15:12→23:12)
[2019-04-02] MEDS: LORazepam Inj 2mg/ml 1ml IV PRN ×2 (16:40→20:27)
--- NOTE | 2019-04-02 17:10 | NUR ---
NURSE NOTES: PT states he gave his insurance care and ID to the ambulance personnel when transporting [place] [facility] RN contacted ED to verify they are not in ED and who was ambulance. Per ED pt was transported by [facility]. RN contacted [facility]. Per Dispatch they contacted the crew that brought the pt and they never received the pt's ID or Insurance card from pt. Addendum: 04/02/19 at 1757 by CAROLYN SMITH RN Notified pt and the [facility] states they never received pt's ID or insurance card. Per Pt's , She gave ID and Insurance card to [place] [employer] RN attempted to contact [place] [employer], but office is closed. RN provided the phone number to contact
[2019-04-02] MEDS ORDERED: Metoprolol 25mg tab ORAL SCH ×2 (17:50→21:00)
--- NOTE | 2019-04-02 17:50 | NUR ---
NURSE NOTES: Pt's HR continues to be 120-155 typically on the higher side, RN notified Dr. Tran. ordered Lopressor 25mg PO Once Addendum: 04/02/19 at 1846 by CAROLYN SMITH RN NURSE NOTES: Pt is using toothbrush and finger to make myself vomit. He has does this on about 10 occasions. RN has made multiple attempts to explain to the pt that making himself vomit is increasing his already elevated HR and that he needs to try to stay calm and eat something. When asked why his is making himself vomit pt states "because it makes me feel better." RN again educated pt on how making himself vomit is increasing his HR, but stated he will try to stop. When RN left room and was outside the door, pt immediate put his toothbrush in his mouth and vomited. Pt is requesting another dose of Zofran. RN explained to him dose schedule of Zofran and next dose scheduled. RN asked Dr. Llanos for order for one time dose of antiemetic, Dr. Llanos responded with "Pls call vito Chen."
[2019-04-02] MEDS ORDERED: chlordiazePOXIDE 25mg Cap ORAL SCH (18:00)
--- NOTE | 2019-04-02 18:48 | NUR ---
NURSE NOTES: Rn notified Dr. Chen of consult
--- NOTE | 2019-04-02 19:34 | NUR ---
HAND-OFF: Report given to DAVID Ramirez.
--- NOTE | 2019-04-02 19:35 | NUR ---
NURSE NOTES: Got report from Mellisa HERNANDEZ. Pt in stable condition. Denies any pain. No s/s of distress or discomfort noted. Pt resting in bed comfortably. Bed in low and locked position, call light within reach bedside table within reach. Continue to monitor.
[2019-04-02] MEDS ORDERED: TraZODone 50mg tab ORAL SCH (21:00)
[2019-04-02] MEDS ORDERED: Heparin 5000 units/ml inj SUBQ SCH (21:00)
[2019-04-03] VITALS: BP 148/88
[2019-04-03] MEDS: LORazepam Inj 2mg/ml 1ml IV PRN ×2 (00:35→05:01)
[2019-04-03 04:00] VITALS: BP 150/94
--- NOTE | 2019-04-03 04:15 | Consultation ---
DATE OF CONSULTATION: 04/02/2019 CARDIOLOGY CONSULTATION CONSULTING PHYSICIAN: Kolton Tran M.D. REFERRING PHYSICIAN: Aaron Llanos D.O. REASON FOR CONSULTATION: Accelerated hypertension and tachycardia. HISTORY OF PRESENT ILLNESS: The patient is a 48-year-old gentleman with history of recurrent heavy alcohol use and recurrent admissions for alcohol intoxication, presented to the emergency room for diffuse abdominal pain. In the ER, the patient reported recent alcohol intake and has in the past. In the ER, blood pressure was /112 with a heart rate of 140, respirations of 18, and he is afebrile. At the time of my evaluation, the patient has abdominal pain but no chest pain or shortness of breath. REVIEW OF SYSTEMS: Review of systems was negative other than what was mentioned in history of present illness. PAST MEDICAL HISTORY: 1. History of heavy alcohol use. 2. History of alcoholic ketoacidosis. 3. Hypertension. PHYSICAL EXAMINATION: VITAL SIGNS: Show blood pressure of 155/94, pulse 130, respirations 16, and he is afebrile. HEAD AND NECK: Showed no JVD. LUNGS: Clear. CARDIOVASCULAR: Regular S1 and S2 and tachycardic. ABDOMEN: Soft, nontender. EXTREMITIES: No pitting edema. LABORATORY AND DIAGNOSTIC DATA: White count of 22.5, hemoglobin of 18.5, hematocrit 52.4, and platelet count is 294. Sodium is 137, potassium 4.5, BUN 15, creatinine 1.3, and carbon dioxide is 15. Troponin is negative. His urine toxicology is positive for benzodiazepine and marijuana previous admission. Urinalysis shows 2+ protein, 4+ ketones. ASSESSMENT AND PLAN: 1. Tachycardia. It looks like sinus tachycardia on telemetry. We will get a 12-lead EKG and get an echocardiogram to make sure the patient tachycardia-induced cardiomyopathy. 2. Hypertension. Start him on lisinopril 10 mg daily. 3. Elevated white count, likely due to dehydration. 4. Metabolic acidosis from alcohol. 5. Anxiety. Thank you very much, Dr. Llanos, for allowing me to participate in the care of this patient. Please do not hesitate to contact me for any questions regarding my evaluation. Sincerely, Kolton Tran M.D. DR: Steven JOB#: [id number] CC:
--- NOTE | 2019-04-03 06:00 | NUR ---
NURSE NOTES: 599: Pt decided to leave AMA. Explained to pt about the risks of leaving and that it is in his would benefit him if he stayed in the hospital. Pt still wants to leave AMA. VS T:97 HR:114 R:20 BP:150/94 O2:99% on room air. Denies any pain. Denies any n/v or SOB. Ptm says "I feel alot better now." IV taken out. engine monitor taken off. All belongings taken with pt. Notified charge nurse of pts decision. Notified Dr. Llanos of pts decision to leave AMA. Addendum: 04/03/19 at 0658 by Deven Mcnulty RN AMA formed signed by pt
[2019-04-03] MEDS: D5NS 1,000 ML IV SCH (06:45)
[2019-04-03] MEDS ORDERED: DULoxetine 30mg cap ORAL SCH (09:00)
[2019-04-03] MEDS ORDERED: Thiamine 100mg tab ORAL SCH ×2 (09:00)
[2019-04-03] MEDS ORDERED: Tums 500mg ORAL SCH (09:00)
[2019-04-03] MEDS ORDERED: Lisinopril 10mg tab ORAL SCH (09:00)
[2019-04-03] MEDS ORDERED: Vitamin D 1000 IU Tab ORAL SCH (09:00)
--- NOTE | 2019-04-04 10:19 | NUR ---
*-* INSURANCE *-* ALL AVAILABLE CLINICALS AND REVIEWS HAVE BEEN FAXED TO: Ref#[id number] No CM yet
--- NOTE | 2019-04-04 11:44 | Discharge Summary ---
Discharge Summary Discharge Summary _ DATE OF ADMISSION: 04/02/2018 DATE OF DISCHARGE: 04/03/2019 Patient left AGAINST MEDICAL ADVICE REASON FOR ADMISSION: 48 years old male with past medical history of hypertension, asthma, GERD, depression, anxiety, alcohol abuse, presented to emergency room for evaluation due to abdominal pain and vomiting. Patient reported recent heavy alcohol intake/ binge drinking for several days. Patient reported similar multiple episodes in the past. No hematemesis. Upon evaluation patient was tachycardic with heart rate 140 , tachypneic with respiratory rate 24, blood pressure was 168/112. Laboratory work-up revealed leukocytosis WBC 22.5, stable hemoglobin and hematocrit. Platelet count 294. Stable electrolytes. BUN 15, creatinine 1.3. Glucose 100. AST 71, ALT 60. Alkaline phosphatase 106. Lipase 60. Troponin negative. EKG reveals sinus tachycardia with prolonged QT interval. In the emergency department patient received antiemetic and started on the IV fluids. Tachycardia somewhat improved after IV fluids. Patient received beta-eri. Patient also received IV Ativan for agitation and anxiety . Patient r admitted for further management. CONSULTANTS: clinical education specialist Dr. Espinoza [facility]: Patient admitted to telemetry floor. Patient continued with IV hydration . Folic acid , thiamine, and magnesium provided. Librium was on board as needed . GI prophylaxis provided. Antiemetic were on board as needed. Pain management was addressed. Patient started on nicotine patch. News Broadcaster seen and evaluated patient due to tachycardia . Telemetry revealed sinus tachycardia. Twelve-lead EKG and echocardiogram were ordered . Patient started on TRAN inhibitor for blood pressure control. DVT prophylaxis provided. Per clinical education specialist, elevated white blood count could be possibly due to dehydration. Patient was on the IV fluids, as mentioned above. Patient decided to leave AGAINST MEDICAL ADVICE. Patient reported that he felt better and did not want to stay in the hospital anymore. The risks and consequences of signing AGAINST MEDICAL ADVICE were discussed with patient in detail. Patient verbalized understanding, nevertheless signed AMA form and left. FINAL DIAGNOSES: Acute alcoholic intoxication Dehydration Tachycardia Hypertension Leukocytosis , likely due to dehydration Metabolic acidosis, likely due to ETOH Anxiety I have been assigned to dictate discharge summary for this account. I was not involved in the patient's management. Delores Magana NP Apr 04, 2019 11:44
--- NOTE | 2019-04-05 11:59 | NUR ---
*-* INSURANCE *-* discharge summary has BEEN FAXED TO: [facility] Ref#[id number] No CM yet
== END 2019-04-03 06:00 | disposition left against medical advice (07) | DRG 641 ==
LOC: EDBD 10:28 → EMR 11:07 → 2E 12:06 → EDBEDREQ 12:29
DX: E87.2 Acidosis (principal); F10.129 Alcohol abuse with intoxication, unspecified; E86.0 Dehydration; R00.0 Tachycardia, unspecified; I10 Essential (primary) hypertension; F41.9 Anxiety disorder, unspecified; R94.31 Abnormal electrocardiogram [ECG] [EKG]
CPT/HCPCS: 36415; 80053; 83690; 84484; 85007; 85025; 86850; 86900; 86901; 93005; 96365; 96366; 96367; 96368; 96375; 99285; J2405; J2765

== ENCOUNTER 2019-04-16 05:27 | Emergency (ER) | payer BC ==
[~2019-04-16] VITALS: Ht 167.6 cm; Wt 72.6 kg
[~2019-04-16 05:27] MED LIST changes: +CENTRUM MEN'S1 EACH PO; +UNOBMED
--- NOTE | 2019-04-16 05:36 | Emergency Room Report ---
History of Present Illness General Chief Complaint: Alcohol Intoxication Source: Patient, Medical Record, EMS Present Illness HPI Is a 48-year-old male well-known to me. He is an alcoholic with multiple ER visit for alcohol intoxication, AKA and anxiety. He usually get hydrated up and sign out AGAINST MEDICAL ADVICE. He presents with chief complaint of nausea and vomiting. He was binge drinking in stopped few hours ago. Now unable to keep anything down. Similar symptom in the past. Was recently admitted and signed out AMA last week. Vomiting is nonbloody nonbilious. Stomach is cramping pain. No diarrhea. Allergies: Coded Allergies: CEPHALEXIN (Verified Allergy, Severe, Anaphylaxis, , 04/02/19) PENICILLINS (Verified Allergy, Severe, Anaphylaxis, 04/02/19) SILVER (Verified Allergy, Intermediate, hives, 04/02/19) Patient History Past Medical History: see triage record, old chart reviewed Past Surgical History: none Pertinent Family History: none Social History: Reports: alcohol use Immunizations: other Reviewed Nursing Documentation: PMH: Agreed; PSxH: Agreed Nursing Documentation-PMH Hx Cardiac Problems: Yes Hx Hypertension: Yes Hx Asthma: Yes Hx Cancer: No Hx Gastrointestinal Problems: Yes Hx Neurological Problems: No Review of Systems Eye: Denies: eye pain, blurred vision ENT: Denies: ear pain, nose congestion, throat swelling Respiratory: Denies: cough, shortness of breath Cardiovascular: Denies: chest pain, palpitations Gastrointestinal: Reports: abdominal pain, nausea, vomiting; Denies: diarrhea Musculoskeletal: Denies: back pain, joint pain Skin: Denies: rash Neurological: Denies: headache, numbness Endocrine: Denies: increased thirst, increased urine Hematologic/Lymphatic: Denies: easy bruising All Other Systems: negative except mentioned in HPI Physical Exam Vital Signs Date Time Temp Pulse Resp B/P (MAP) Pulse Ox O2 Delivery O2 Flow Rate FiO2 04/16/19 05:30 97.9 106 18 152/88 (109) 100 Room Air Vitals with tachycardia Sp02 EP Interpretation: reviewed, normal General Appearance: well appearing, no apparent distress, alert Head: normocephalic, atraumatic Eyes: bilateral eye PERRL, bilateral eye EOMI ENT: hearing grossly normal, normal pharynx Neck: full range of motion, supple, no meningismus Respiratory: chest non-tender, lungs clear, normal breath sounds Cardiovascular #1: regular rate, rhythm, no murmur Gastrointestinal: normal bowel sounds, non tender, no mass, no organomegaly, no bruit, non-distended Musculoskeletal: back normal, gait/station normal, normal range of motion Psychiatric: anxious Medical Decision Making Diagnostic Impression: Primary Impression: Alcohol withdrawal syndrome Qualified Codes: F10.230 - Alcohol dependence with withdrawal, uncomplicated Additional Impressions: Dehydration Metabolic acidosis ER Course Patient presents with alcohol induced vomiting and withdrawal symptoms. Heart rate is not as tachycardic as usual. IV hydration given here. Will check labs to make sure he is not severely dehydrated or in severe alcoholic ketoacidosis. If better will discharge home. Patient felt better now. Tolerating p.o. He does not want to stay. Patient given 2 L of IV fluid. Ativan given and Librium given. Will discharge home with Librium. Last Vital Signs Date Time Temp Pulse Resp B/P (MAP) Pulse Ox O2 Delivery O2 Flow Rate FiO2 04/16/19 05:30 97.9 106 18 152/88 (109) 100 Room Air Status: improved Disposition: HOME, SELF-CARE Condition: Stable Scripts Chlordiazepoxide (Chlordiazepoxide HCl) 25 Mg Capsule 25 MG ORAL THREE TIMES A DAY, #15 CAP 0 Refills Prov: Rivera Sullivan MD 04/16/19 Patient Instructions: Alcohol Use Disorder Additional Instructions: Abstain from alcohol. Go to rehab. Follow-up with your doctor in 7 days. Return if worse. Rivera Sullivan MD Apr 16, 2019 05:36
--- NOTE | 2019-04-16 05:40 | NUR ---
ED Nurse Note: pt presents to ED via EMS arrival from home for alcohol intoxication. per EMS pt has been binge drinking for 3 days. When asked, pt reports, "I guess i've been drinking for longer than I thought." pt has a h/o alcoholism and states that he has been trying to get into a rehab center ([facility]) but was not able to get in and wanted to come to the ED to be treated. pt states he has been nauseous and vomited a couple times today. pt also c/o "excrutiating" abd pain.
[2019-04-16] MEDS ORDERED: LR 1000ml 1,000 ML IV ONE (05:45)
[2019-04-16] MEDS ORDERED: LORazepam Inj 2mg/ml 1ml IV ONE ×2 (05:45→08:00)
[2019-04-16 05:47] LABS: BASOPHILS % (AUTO) 1.1 % (0.0-2.0); EOSINOPHILS % (AUTO) 0.9 % (0.0-3.0); HEMATOCRIT 42.1 % (42.0-52.0); HEMOGLOBIN 14.8 G/DL (14.2-18.0); MEAN CORPUSCULAR VOLUME 96 FL (80-99); MONOCYTES % (AUTO) 5.5 % (1.0-10.0); NEUTROPHILS % (AUTO) 62.5 % (45.0-75.0); PLATELET COUNT 227 K/UL (150-450); RED CELL DISTRIBUTION WIDTH 11.5 % (11.6-14.8); WHITE BLOOD COUNT 7.5 K/UL (4.8-10.8)
[2019-04-16 05:52] VITALS: BP 152/88
[2019-04-16 05:56] LABS: ANION GAP 24 mmol/L (5-15); BLOOD UREA NITROGEN 10 mg/dL (7-18); CARBON DIOXIDE 15 MMOL/L (21-32); CHLORIDE 100 MMOL/L (98-107); CREATININE 1.3 MG/DL (0.55-1.30); SODIUM 139 MMOL/L (136-145)
[2019-04-16 06:01] LABS: ALANINE AMINOTRANSFERASE 62 U/L (12-78); ALBUMIN/GLOBULIN RATIO 1.2 (1.0-2.7); ALKALINE PHOSPHATASE 76 U/L (46-116); ASPARTATE AMINO TRANSFERASE 71 U/L (15-37); BILIRUBIN,TOTAL 0.7 MG/DL (0.2-1.0)
[2019-04-16] MEDS ORDERED: chlordiazePOXIDE 25mg Cap ORAL ONE (06:15)
[2019-04-16] MEDS ORDERED: LIBRIUM25 MG ORAL (06:16)
[2019-04-16 06:30] LABS: APPEARANCE,URINE CLEAR; BILIRUBIN, URINE NEGATIVE (NEGATIVE); COLOR,URINE PALE YELLOW; GLUCOSE, URINE (UA) NEGATIVE (NEGATIVE); KETONES,URINE 3+ (NEGATIVE); LEUKOCYTE ESTERASE ,URINE NEGATIVE (NEGATIVE); NITRITE,URINE NEGATIVE (NEGATIVE); PH,URINE 5 (4.5-8.0); PROTEIN,URINE NEGATIVE (NEGATIVE); UROBILINOGEN,URINE NORMAL MG/DL (0.0-1.0)
[2019-04-16] MEDS ORDERED: D5 1/2NS w/KCl 20mEq 1,000 ML IV SCH (07:00)
[2019-04-16] MEDS ORDERED: Metoclopramide 10mg/2ml Inj IVP ONE (07:00)
--- NOTE | 2019-04-16 07:25 | NUR ---
ED Nurse Note: Patient c/o pain under left chest, 01/[address] Krueger notified.
[2019-04-16 07:30] VITALS: BP 141/87
--- NOTE | 2019-04-16 08:20 | NUR ---
ED Nurse Note: Patient states that he feels better and wants to be discharged, IVF still running. notified Dr. Krueger. Per , okay to discharge.
--- NOTE | 2019-04-16 08:29 | NUR ---
ER DISCHARGE NOTE: Patient is cleared to be discharged per ERMD, pt is aox4, on room air, with stable vital signs. pt was given dc and prescription instructions, pt was able to verbalize understanding, pt id band and iv site removed without complications. pt is able to ambulate with steady gait. pt took all belongings.
[2019-04-16 08:32] VITALS: BP 143/89
== END 2019-04-16 08:30 | disposition home or self-care (01) ==
LOC: EDUNIT# 05:27 → EDBD 05:27 → EMR 05:37
DX: F10.230 Alcohol dependence with withdrawal, uncomplicated (principal); E86.0 Dehydration; E87.2 Acidosis; J45.909 Unspecified asthma, uncomplicated; I10 Essential (primary) hypertension; Z88.1 Allergy status to other antibiotic agents; Z88.0 Allergy status to penicillin; Z91.048 Other nonmedicinal substance allergy status
CPT/HCPCS: 36415; 80053; 81003; 83690; 85025; 96361; 96374; 96375; 96376; 99285; J2405; J2765; S0028; J7030

== ENCOUNTER 2019-04-24 14:07 | Emergency (ER) | payer BC ==
[~2019-04-24] VITALS: Ht 175.3 cm; Wt 81.6 kg
[2019-04-24] MEDS ORDERED: chlordiazePOXIDE 25mg Cap ORAL ONE (14:30)
[2019-04-24] MEDS: Mylanta II UD 30ml ORAL ONE ×2 (14:30→15:06)
[2019-04-24] MEDS ORDERED: D5NS 1,000 ML IV ONE (14:30)
--- NOTE | 2019-04-24 14:30 | NUR ---
ED Nurse Note: Patient walked into ED c/o lower abdominal pain, and nausea, denies any vomiting or diarrhea states that he has been drinking for the past 5 days from home. patient reports he has been drinking "castro goose 5 bottles." patient reports he has not been getting help for alcohol withdrawl because he does not have ID at this time. patient is alert awake ambulatory with assistance, patient placed on a phototypesetting equipment monitor.
--- NOTE | 2019-04-24 14:35 | Emergency Room Report ---
History of Present Illness General Chief Complaint: Abdominal Pain Source: Patient Present Illness HPI 48-year-old male history of alcohol abuse presents with epigastric pain nausea and vomiting, started 4 days ago, patient has been binge drinking, endorsing sharp pain, aggravated by drinking alleviated by not drinking severity is moderate, he endorses some nausea vomiting no blood no diarrhea, patient denies any fevers, he does endorse some chills and shakiness, patient states that when he gets like this he comes to the hospital gets rehydrated given antinausea medication and feels better. Patient presents for evaluation Allergies: Coded Allergies: CEPHALEXIN (Verified Allergy, Severe, Anaphylaxis, , 04/02/19) PENICILLINS (Verified Allergy, Severe, Anaphylaxis, 04/02/19) SILVER (Verified Allergy, Intermediate, hives, 04/02/19) Patient History Past Medical History: see triage record Social History: Reports: alcohol use Reviewed Nursing Documentation: PMH: Agreed; PSxH: Agreed Nursing Documentation-PMH Past Medical History: No History, Except For Hx Cardiac Problems: Yes Hx Hypertension: Yes Hx Asthma: Yes Hx Cancer: No Hx Gastrointestinal Problems: Yes Hx Neurological Problems: No Review of Systems All Other Systems: negative except mentioned in HPI Physical Exam Vital Signs Date Time Temp Pulse Resp B/P (MAP) Pulse Ox O2 Delivery O2 Flow Rate FiO2 04/24/19 14:24 98.2 110 16 146/96 (113) 98 Room Air Sp02 EP Interpretation: reviewed, normal General Appearance: well appearing, no apparent distress, alert Head: normocephalic, atraumatic Eyes: bilateral eye PERRL, bilateral eye EOMI ENT: uvula midline, dry mucus membranes Neck: supple, thyroid normal, supple/symm/no masses Respiratory: lungs clear, no respiratory distress, no retraction, no accessory muscle use Cardiovascular #1: normal peripheral pulses, regular rate, rhythm, no edema, no gallop, no murmur Gastrointestinal: non tender, soft, no guarding, no rebound Musculoskeletal: normal inspection Neurologic: alert, oriented x3 Psychiatric: mood/affect normal Skin: no rash, warm/dry Medical Decision Making Diagnostic Impression: Primary Impression: Gastritis Qualified Codes: K29.20 - Alcoholic gastritis without bleeding Additional Impression: Abdominal pain Qualified Codes: R10.13 - Epigastric pain ER Course 48-year-old male presents with recurrent epigastric pain, states it happens after drinking, fluids, Zofran, Pepcid started, differential diagnosis includes gastritis, appendicitis, cholecystitis Abdomen is soft nontender Patient given fluid rehydration Reevaluation at 3:45 PM patient wants to leave AGAINST MEDICAL ADVICE, patient has a recurring theme of leaving AGAINST MEDICAL ADVICE prior to his work-up being completed The patient has requested to leave the ED against medical advice. The patient reason(s) for leaving include, but are not limited to, the following: I want better service." I believe this patient is of sound mind and competent to refuse medical care. The patient is responding and asking questions appropriately. The patient is oriented to person, place and time. The patient is not psychotic, delusional, suicidal, homicidal or hallucinating. The patient demonstrates a normal mental capacity to make decisions regarding their healthcare. The patient is clinically sober and does not appear to be under the influence of any illicit drugs at this time. The patient has been advised of the risks, in layman terms, of leaving AMA which include, but are not limited to , coma, permanent disability, loss of current lifestyle, delay in diagnosis. Alternatives have been offered - the patient remains steadfast in their wish to leave. The patient has been advised that should they change their mind they are welcome to return to this hospital, or any other, at any time. The patient understands that in no way does an AMA discharge mean that I do not want them to have the best medical care available. To this end, I have provided appropriate prescriptions, referrals, and discharge instructions. The patient did sign AMA paperwork. The above discussion was witnessed by another member of staff. Laboratory Tests Test 04/24/19 15:02 White Blood Count 5.8 K/UL (4.8-10.8) Red Blood Count 4.44 M/UL (4.70-6.10) L Hemoglobin 15.1 G/DL (14.2-18.0) Hematocrit 41.8 % (42.0-52.0) L Mean Corpuscular Volume 94 FL (80-99) Mean Corpuscular Hemoglobin 34.0 PG (27.0-31.0) H Mean Corpuscular Hemoglobin Concent 36.1 G/DL (32.0-36.0) H Red Cell Distribution Width 11.5 % (11.6-14.8) L Platelet Count 171 K/UL (150-450) Mean Platelet Volume 6.2 FL (6.5-10.1) L Neutrophils (%) (Auto) 56.9 % (45.0-75.0) Lymphocytes (%) (Auto) 33.1 % (20.0-45.0) Monocytes (%) (Auto) 8.3 % (1.0-10.0) Eosinophils (%) (Auto) 0.6 % (0.0-3.0) Basophils (%) (Auto) 1.1 % (0.0-2.0) Sodium Level 137 MMOL/L (136-145) Potassium Level 4.2 MMOL/L (3.5-5.1) Chloride Level 92 MMOL/L (98-107) L Carbon Dioxide Level 22 MMOL/L (21-32) Anion Gap 23 mmol/L (5-15) H Blood Urea Nitrogen 12 mg/dL (7-18) Creatinine 1.1 MG/DL (0.55-1.30) Estimate Glomerular Filtration Rate > 60 mL/min (>60) Glucose Level 65 MG/DL (74-106) L Calcium Level 9.0 MG/DL (8.5-10.1) Total Bilirubin 0.8 MG/DL (0.2-1.0) Aspartate Amino Transferase (AST) 234 U/L (15-37) H Alanine Aminotransferase (ALT) 158 U/L (12-78) H Alkaline Phosphatase 82 U/L (46-116) Total Protein 8.4 G/DL (6.4-8.2) H Albumin 4.7 G/DL (3.4-5.0) Globulin 3.7 g/dL Albumin/Globulin Ratio 1.3 (1.0-2.7) Lipase 72 U/L (73-393) L Last Vital Signs Date Time Temp Pulse Resp B/P (MAP) Pulse Ox O2 Delivery O2 Flow Rate FiO2 04/24/19 14:24 98.2 110 16 146/96 (113) 98 Room Air Disposition: AGAINST MEDICAL ADVICE Condition: Stable Scripts Famotidine* (Pepcid 20mg tablet*) 20 Mg Tablet 20 MG ORAL TWICE A DAY, #60 TAB 0 Refills Prov: Will Guo MD 04/24/19 Ondansetron (Zofran) 4 Mg Tablet 4 MG ORAL Q6H PRN for Nausea & Vomiting, #30 TAB Prov: Will Guo MD 04/24/19 Referrals: [facility] Sravani Delgado. [facility] Patient Instructions: Abdominal Pain, Adult Additional Instructions: The patient was provided with discharge instructions, notified to follow-up with a primary care doctor and or specialist in the next 24-48 hours, and to return to the ED if they have worsening of their symptoms. Please note that this report is being documented using [employer] technology. This can lead to erroneous entry secondary to incorrect interpretation by the dictating instrument. Will Guo MD Apr 24, 2019 14:35
[2019-04-24 14:50] VITALS: BP 142/92
--- NOTE | 2019-04-24 14:50 | NUR ---
ED Nurse Note: patient unable to provide urine sample at this time. patient declined straight cath.
--- NOTE | 2019-04-24 15:15 | NUR ---
Patient refused EKG at 1506, ERMD and RN notified.
[2019-04-24] MEDS ORDERED: ZOFRAN4 M1 ORAL (15:46)
[2019-04-24] MEDS ORDERED: FAMOTIDINE20 MG ORAL (15:46)
[2019-04-24 15:50] VITALS: BP 142/92
--- NOTE | 2019-04-24 15:50 | NUR ---
AMA: SEE AMA FORM. Dr. Guo by the bedside. IV removed by Dr. Guo. patient explained about the risk of leaving against medical advice.
[2019-04-24 16:09] LABS: BASOPHILS % (AUTO) 1.1 % (0.0-2.0); EOSINOPHILS % (AUTO) 0.6 % (0.0-3.0); HEMATOCRIT 41.8 % (42.0-52.0); HEMOGLOBIN 15.1 G/DL (14.2-18.0); LYMPHOCYTES % (AUTO) 33.1 % (20.0-45.0); MEAN CORPUSCULAR VOLUME 94 FL (80-99); MONOCYTES % (AUTO) 8.3 % (1.0-10.0); NEUTROPHILS % (AUTO) 56.9 % (45.0-75.0); PLATELET COUNT 171 K/UL (150-450); RED BLOOD COUNT 4.44 M/UL (4.70-6.10); RED CELL DISTRIBUTION WIDTH 11.5 % (11.6-14.8); WHITE BLOOD COUNT 5.8 K/UL (4.8-10.8)
[2019-04-24 17:25] LABS: CARBON DIOXIDE 22 MMOL/L (21-32); CHLORIDE 92 MMOL/L (98-107); POTASSIUM 4.2 MMOL/L (3.5-5.1); SODIUM 137 MMOL/L (136-145)
[2019-04-24 17:26] LABS: ALANINE AMINOTRANSFERASE 158 U/L (12-78); ALBUMIN 4.7 G/DL (3.4-5.0); ALBUMIN/GLOBULIN RATIO 1.3 (1.0-2.7); ANION GAP 23 mmol/L (5-15); ASPARTATE AMINO TRANSFERASE 234 U/L (15-37); BILIRUBIN,TOTAL 0.8 MG/DL (0.2-1.0); BLOOD UREA NITROGEN 12 mg/dL (7-18); CREATININE 1.1 MG/DL (0.55-1.30)
[2019-04-24 17:27] LABS: ALKALINE PHOSPHATASE 82 U/L (46-116)
== END 2019-04-24 15:50 | disposition left against medical advice (07) ==
LOC: EDBD 14:07 → EMR 14:49
DX: K29.20 Alcoholic gastritis without bleeding (principal); R10.13 Epigastric pain; I10 Essential (primary) hypertension; Z88.0 Allergy status to penicillin; Z88.8 Allergy status to other drugs, medicaments and biological substances
CPT/HCPCS: 80053; 83690; 85025; 96361; 96374; 96375; 99284; J2405; S0028; J7030